=== PATIENT | male | born 1965 | race Caucasian/White ===

== ENCOUNTER → 2021-09-20 01:12 | Outpatient (CLI) | payer SELFPAY ==
[2021-09-21 14:30] LABS: SARS-CoV-2 RNA PCR Negative
== END ==
PROVIDERS: PCP Family Medicine Adolescent Medicine; Visit Provider Family Medicine Adolescent Medicine
DX: R50.9 Fever, unspecified (principal); R06.00 Dyspnea, unspecified; Z20.822 Contact with and (suspected) exposure to COVID-19
CPT/HCPCS: C9803; U0003; U0005

== ENCOUNTER 2022-02-14 14:49 | Inpatient (IN) | payer OTHER, SELFPAY ==
[2022-02-14] VITALS (26 sets, daily range): BP systolic 118–213; BP diastolic 68–197; PULSE 72–166; RESP 12–22; TEMP 36.3–37.1; O2SAT 93–100; BMI 24.2
--- NOTE | ~2022-02-14 | XR_ITS ---
EXAMINATION: XR chest 2V Exam Date/Time: 02/14/2022 15:15 CDT CLINICAL HISTORY: SOB, PALPITATIONS X10 DAYS. CURRENT AFIB, DENIES MED HX Comparison: 05/26/2009. RESULT: Lines, tubes, and devices: None. Lungs and pleura: Clear. Cardiomediastinal silhouette: Stable cardiomediastinal silhouette. Other: No acute osseous or upper abdominal finding. IMPRESSION: No acute cardiopulmonary process Reviewed, dictated and finalized at location K.
--- NOTE | 2022-02-14 14:53 | ECG_ITS ---
Measurements Intervals [place] Rate: 156 P: OR: 0 QRS: 81 QRSD: 102 T: -5 QT: 265 QTc: 428 Interpretive Statements ATRIAL FIBRILLATION WITH RAPID VENTRICULAR RESPONSE DELAYED PRECORDIAL R/S TRANSITION BORDERLINE ST-T WAVE ABNORMALITY- INF/LAT LEADS BASELINE ARTIFACT- I, II, III, AVR, AVL, AVF ABNORMAL ECG Electronically Signed On 02-14-2022 15:00:24 CDT by Jude Villatoro D.O.
[2022-02-14] MEDS: dilTIAZem HCl INJ 25 MG/5 ML VIAL 15 MG IV PUSH (15:09)
[2022-02-14] MEDS: ASPIRIN 81 MG CHEWABLE TABLET 324 MG PO (15:09)
[2022-02-14 15:20] LABS: Basophils Percent Auto 0.4 % (0.2-1.2); Eosinophils Percent Auto 0.1 % (0-4.4); Hematocrit 41.6 % (42.0-52.0); Hemoglobin 13.6 g/dL (14.0-18.0); Immature Granulocyte Absolute 0.05 K/mm3 (0.00-0.031); Immature Granulocyte Percent A 0.5 % (0-0.5); Lymphocytes Absolute Auto 1.35 K/mm3 (0.9-3.2); Lymphocytes Percent Auto 12.3 % (18.3-44.2); Mean Corpuscular HGB Conc 32.7 g/dl (32-36); Mean Corpuscular Hemoglobin 29.1 pg (26-34); Mean Corpuscular Volume 89.1 fl (80-100); Mean Platelet Volume 10.9 fl (7.4-10.4); Monocytes Absolute Auto 1.2 K/mm3 (0.1-0.6); Monocytes Percent Auto 10.5 % (2.6-8.5); Neutrophils Absolute Auto 8.4 K/mm3 (1.3-6.7); Neutrophils Percent Auto 76.2 % (45.5-73.1); Platelet Count Result 198 k/mm3 (150-375); Red Blood Count 4.67 M/mm3 (4.6-6.20); Red Cell Distribution Width 14.6 % (11.5-14.5)
[2022-02-14 15:26] LABS: Anion Gap 13 mmol/L (8-16); Blood Urea Nitrogen 15 mg/dL (9-20); Calcium 8.7 mg/dL (8.4-10.2); Carbon Dioxide 21 mmol/L (22-30); Chloride 102 mmol/L (98-107); Estimated CRCL calculation 88 ml/min; Estimated Glomerular Filt Rate > 60; Glucose 146 mg/dL (65-110); Potassium 3.8 mmol/L (3.4-5.0); Sodium 136 mmol/L (137-145)
[2022-02-14 15:28] LABS: INR 1.3; Prothrombin Time 15.3 Seconds (11.1-14.7)
[2022-02-14 15:29] LABS: Partial Thromboplastin Time 26.2 SECONDS (22.3-36.8)
[2022-02-14 15:38] LABS: NT Pro B Type Natriuretic Pept 3340 pg/mL (5-100); Troponin I 0.028 ng/mL (0.000-0.034)
--- NOTE | 2022-02-14 15:45 | ED.ARRPALP ---
HPI - Arrhythmia/Palpitations General Chief Complaint: Arrhythmia/Palpitations Stated Complaint: abnormal ekg Time Seen by Provider: 02/14/22 14:51 History of Present Illness HPI narrative: Patient is a 56-year-old male who presents ER with palpitations last 10 days. Associate with exertional dyspnea and chest tightness. No fevers or chills or sweats. No loss of consciousness. Went to see primary care today who referred him to the ER. Patient denies cough or sinus congestion. No abdominal discomfort/nausea/vomiting. Related Data Home Medications Medication Instructions Recorded Confirmed No Home Medications 02/14/22 02/14/22 Allergies Allergy/AdvReac Type Severity Reaction Status Date / Time Penicillins Allergy Mild TOLD WAS Verified 02/14/22 13:38 ALLERGIC WHEN A CHILD--???REACTION Review of Systems Review of Systems: All systems reviewed & are unremarkable except as noted in HPI and below Constitutional: Constitutional: Denies chills, Reports fatigue, Denies fever(s) and Reports weakness ENT: Denies nasal congestion and Denies sore throat Cardiovascular: Cardiovascular: Reports chest pain (Tightness), Reports rapid heart rate and Denies radiating jaw, neck or arm pain Respiratory: Respiratory: Denies chest congestion, Denies cough and Reports dyspnea Gastrointestinal: Gastrointestinal: Denies abdominal pain, Denies nausea and Denies vomiting Musculoskeletal: Musculoskeletal: Denies arthralgias and Denies muscle cramps Neurologic: Denies headache(s), Denies focal weakness and Denies numbness PMFSH Past Medical History Medical History (Updated 02/14/22 @ 16:04 by Tito Sumner MD) Hypertension Surgical History Surgical History (Updated 02/14/22 @ 16:02 by Tito Sumner MD) History of orthopedic surgery Family History Family History (Updated 02/14/22 @ 13:42 by Pérez Elder MA) Mother Heart disease Diabetes mellitus Social History Social History (Updated 02/14/22 @ 13:43 by Pérez Elder MA) Smoking status: Former smoker Second hand tobacco smoke exposure: No Smoking end date: 02/05/05 Alcohol intake: current Drinks per week: 12 Substance use: never Substance use type: does not use Gender identity (if verbalized by the patient): Male Sexual Orientation (if Verbalized by the Patient): Straight or Heterosexual Spiritual care concerns: No Agree to blood products: Yes Exam Narrative: GENERAL: Well-appearing, well-nourished, and in no acute distress. HEAD: Normocephalic, atraumatic. EYES: PERRL and EOMI. CHEST: Clear to auscultation. No respiratory distress. HEART: Irregular regular rate and rhythm that is tachycardic. Normal peripheral pulses. ABDOMEN: Soft, nontender, nondistended. EXTREMITIES: Normal range of motion. No edema. SKIN: Warm, dry, no rash. NEURO: Alert and oriented x3. PSYCH: Normal mood and affect. Course Course Emergency Course: Discussed with cardiology. Will admit primarily given patient is free of other health issues. Patient did have good response to diltiazem but will need to be started on a drip. Lasix ordered for diuresis. Will obtain echo. Vital Signs Vital signs: Vital Signs Temperature 97.3 F L 02/14/22 14:54 Pulse Rate 166 H 02/14/22 14:54 Respiratory Rate 14 02/14/22 14:54 Blood Pressure 152/119 H 02/14/22 14:54 Pulse Oximetry 100 02/14/22 14:54 Temperature 97.3 F L 02/14/22 14:54 Pulse Rate 166 H 02/14/22 14:54 Respiratory Rate 14 02/14/22 14:54 Blood Pressure 152/119 H 02/14/22 14:54 Pulse Oximetry 100 02/14/22 14:54 MDM - Arrhythmia/Palpitations Lab Data Result diagrams: 02/14/22 15:05 02/14/22 15:05 Labs: Lab Results 02/14/22 02/14/22 02/14/22 Range/Units 15:05 15:05 15:05 WBC 11.0 H (4.5-10.0) K/mm3 RBC 4.67 (4.6-6.20) M/mm3 Hgb 13.6 L (14.0-18.0) g/dL Hct 41.6 L (42.0-52.0) % MCV
[2022-02-14 16:26] LABS: SARS-CoV-2 RNA PCR Negative
[2022-02-14] MEDS: dilTIAZem 100 MG/100 ML 100 MG/100 ML BAG IV CONT (16:36)
[2022-02-14] MEDS: ENOXAPARIN 100 MG/ML SYRINGE 90 MG SUB-Q (16:37)
[2022-02-14 20:03] LABS: Troponin I 0.046 ng/mL (0.000-0.034)
[2022-02-14] MEDS: FUROSEMIDE INJ 40 MG/4 ML VIAL IV PUSH (20:56)
[2022-02-14 21:52] LABS: Troponin I 0.048 ng/mL (0.000-0.034)
[2022-02-14] MEDS: dilTIAZem 100 MG/100 ML 100 MG/100 ML BAG 15 MG IV CONT (22:26)
[2022-02-14] MEDS: ACETAMINOPHEN 325 MG TABLET 650 MG PO (23:46)
[2022-02-15] VITALS (24 sets, daily range): BP systolic 108–136; BP diastolic 62–107; PULSE 68–120; RESP 16–20; TEMP 36.4–36.9; O2SAT 98–100
[2022-02-15 05:30] LABS: Anion Gap 8 mmol/L (8-16); Blood Urea Nitrogen 15 mg/dL (9-20); Calcium 8.5 mg/dL (8.4-10.2); Carbon Dioxide 27 mmol/L (22-30); Chloride 100 mmol/L (98-107); Estimated CRCL calculation 89 ml/min; Estimated Glomerular Filt Rate > 60; Glucose 112 mg/dL (65-110); Potassium 3.5 mmol/L (3.4-5.0); Sodium 135 mmol/L (137-145)
--- NOTE | 2022-02-15 06:00 | ECHO_ITS ---
Patient Info Name: Rolando Vargas Age: 56 years : 1965 Gender: Male Ht: 75 in Wt: 196 lbs BSA: 2.17 m2 HR: 113 bpm BP: 112 / 69 mmHg Heart Rhythm: Atrial Fibrillation Technical Quality: Fair Exam Date: 02/15/2022 10:20 AM Exam Location: [facility] Patient Status: Inpatient Admit Date: 02/15/2022 Staff Ordering Physician: Tito Sumner MD Chicken Sexer: Emely West RDCS Attending Provider: Epi Hernandez MD Referring Physician: Burak CARTAGENA; Exam Type: CA echo dop color flow w con Study Info Indications - chf, afib, rvr Complete two-dimensional, color flow and Doppler transthoracic echocardiogram is performed with contrast to opacify the left ventricle and to improve the deliniation of the left ventricle endocardial borders. Contrast/Agitated Saline Contrast/Ag. Saline: Definity Amount: 2.00 ml Administered By: Emely West RDCS Existing IV Access: Yes IV Access Condition: patent with no signs of infiltration Summary 1. Left ventricular chamber dimension is mildly enlarged. 2. Left ventricular systolic function is moderately reduced, estimated at 30-35%. 3. There is no increased left ventricular wall thickness. 4. Left atrial chamber dimension is mildly enlarged. 5. There is no aortic valve stenosis. 6. There is mild mitral valve regurgitation. Left Ventricle Left ventricular chamber dimension is mildly enlarged. Left ventricular systolic function is moderately reduced, estimated at 30-35%. There is no increased left ventricular wall thickness. The left ventricular diastolic function is indeterminate. Right Ventricle Right ventricular chamber dimension is normal. Right ventricular systolic function is normal. Left Atria Left atrial chamber dimension is mildly enlarged. Right Atria Right atrial chamber dimension is normal. Aortic Valve The aortic valve is trileaflet. There is no aortic valve stenosis. There is no aortic valve regurgitation. Pulmonic Valve The pulmonic valve is normal. There is trace pulmonic regurgitation. Mitral Valve The mitral valve has normal leaflets. There is mild mitral valve regurgitation. Tricuspid Valve The tricuspid valve leaflets are normal. There is trace tricuspid valve regurgitation. No pulmonary hypertension, estimated pulmonary arterial systolic pressure is 14 mmHg. Pericardium/Pleural The pericardium appears normal. There is trivial pericardial effusion. Inferior Vena Cava Normal inferior vena cava with >50% collapse upon inspiration consistent with normal right atrial pressure, 5 mmHg. Aorta The aortic root size at the sinus of Valsalva is normal. Left Ventricular Outflow Tract Name Value Normal LVOT 2D LVOT Diameter 1.96 cm LVOT Doppler LVOT Peak Gradient 2 mmHg LVOT Mean Gradient 1 mmHg LVOT VTI 12.24 cm LVOT VTI/AV VTI Ratio 0.81 LVOT Stroke Volume 23.46 ml LVOT CO
[2022-02-15] MEDS: FUROSEMIDE INJ 40 MG/4 ML VIAL IV PUSH (08:10)
[2022-02-15] MEDS: dilTIAZem 100 MG/100 ML 100 MG/100 ML BAG IV CONT (08:10)
--- NOTE | 2022-02-15 09:35 | ECG_ITS ---
Measurements Intervals [place] Rate: 101 P: [place]: 0 QRS: 86 QRSD: 105 T: 5 QT: 348 QTc: 452 Interpretive Statements ATRIAL FIBRILLATION WITH RAPID VENTRICULAR RESPONSE DELAYED PRECORDIAL R/S TRANSITION NONSPECIFIC ST & T-WAVE ABNORMALITY- INF/LAT LEADS BASELINE ARTIFACT- I, II, III, AVR, AVL ,AVF ABNORMAL ECG Electronically Signed On 02-15-2022 12:39:55 CDT by Jude Villatoro D.O.
--- NOTE | 2022-02-15 09:40 | PM.IMHP ---
H&P: HPI History of Present Illness Date/Time: Date of service: 02/15/22 09:40 Chief Complaint: Shortness of breath with racing heart for 10 days Narrative: Patient is a very pleasant 56-year-old male with no significant past medical history aside from remote tobacco abuse quit 2004, history of remote heavy alcohol abuse, occasional marijuana use who presented to the emergency department with complaints of proximally 10 days persistent rapid heartbeat, fatigue, shortness of breath, decreased appetite. Patient was evaluated by his primary care physician who obtained an EKG based upon exam and his symptoms which revealed atrial fibrillation with rapid ventricular response and directed him to the emergency department for evaluation. Patient states while this most recent episode lasted approximately 10 days he admits that over the past year he has had intermittent episodes lasting short periods of time when he would inexplicably experience rapid heart rate palpitations fatigue but did not seek attention as these episodes would resolve without intervention. This is by far the longest episode in the most symptomatic he has been. He kept hoping this would go away but he found it difficult to work in the [employer] department at [employer]. He denies near-syncope or syncope, lower extremity edema, orthopnea or PND. He states he has trouble sleeping but denies known history of RANULFO. States in fact he has lost 10 lb over the past couple weeks due to poor appetite as he was not feeling well. He had no prior known history of diagnosis of hypertension, heart failure, CAD, myocardial infarction, stroke, bleeding complications or recent trauma falls or illness. He denies fevers or chills nausea vomiting diarrhea constipation. No melena or bright red blood per rectum. He is feeling a little better at this time but still fatigued and short of breath. His started on diltiazem infusion which improved his heart rate from the 160s within rather slow overnight to the 40-50s while asleep so his diltiazem was reduced. This morning, his heart rate remains in the 90s to 120s today in atrial fibrillation and he remains quite symptomatic. Unfortunately, he was not kept NPO and had already completed his breakfast this morning. COVID swab negative in the ER. Review of Systems Review of Systems: All systems reviewed & are unremarkable except as noted in HPI and below Constitutional: Constitutional: Reports as per HPI, Reports no additional constitutional complaints, Reports fatigue and Reports weakness Comments: Decreased appetite Eyes: Eyes: Reports as per HPI and Reports no additional eye complaints ENT: Reports system reviewed and no additional complaints, except as documented and Reports as per HPI Cardiovascular: Cardiovascular: Reports as per HPI, Reports no additional cardiovascular complaints, Denies chest pain, Denies leg edema and Reports palpitations Respiratory: Respiratory: Reports as per HPI, Reports no additional respiratory complaints, Denies hemoptysis, Reports dyspnea and Reports dyspnea on exertion Gastrointestinal: Gastrointestinal: Reports as per HPI, Reports no additional gastrointestinal complaints, Denies abdominal pain, Denies melena, Denies hematochezia, Denies nausea and Denies vomiting Genitourinary: Genitourinary: Reports no additional male genitourinary complaints and Reports as per HPI Musculoskeletal: Musculoskeletal: Reports no additional musculoskeletal complaints and Reports as per HPI Integumentary/Breasts: Skin/Breast: Reports system reviewed and no additional complaints, except as docu and Reports as per HPI Neurologic: Reports system reviewed and no additional complaints, except as documented and Reports as per HPI Psychiatric: Psychiatric: Reports no additional psychiatric complaints, Reports as per HPI, Reports anxiety and Denies confusion Endocrine: Endocrine: Reports no additional endocrine complaints and Reports as per HPI Hematol
[2022-02-15] MEDS: ENOXAPARIN 100 MG/ML SYRINGE 90 MG SUB-Q ×2 (09:58→20:48)
[2022-02-15] MEDS: PERFLUTREN LIPID MICROSPHERES 1.5 ML VIAL DILUTED TO 10 ML TOTAL VOLUME IV PUSH (10:50)
--- NOTE | 2022-02-15 10:51 | IVDEFINITY ---
Prior to administration of IV Definity the patient was educated on the risks and benefits of the imaging enhancing agent including potential adverse side effects. The patient verbalized understanding. Allergies were verified. No exclusion criteria were identified and at least one of the following inclusion criteria were met: 1) physician request, 2) patient technically difficult to image (per the [place] [employer] Echocardi[employer] guidelines of two or more segments not discernable within the apical view), or 3) questionable left ventricular function. ?
[2022-02-15] MEDS: SOTALOL HCL 80 MG TABLET PO ×2 (11:14→20:47)
--- NOTE | 2022-02-15 13:14 | ECG_ITS ---
Measurements Intervals [place] Rate: 89 P: [place]: 0 QRS: 84 QRSD: 98 T: 73 QT: 413 QTc: 503 Interpretive Statements ATRIAL FIBRILLATION BORDERLINE ST-T WAVE ABNORMALITY- HIGH LATERAL LEADS BASELINE ARTIFACT- I, II, AVR, AVL, AVF ABNORMAL ECG Electronically Signed On 02-15-2022 14:13:52 CDT by Jude Villatoro D.O.
--- NOTE | 2022-02-15 16:41 | ECG_ITS ---
Measurements Intervals [place] Rate: 76 P: 72 [place]: 164 QRS: 87 QRSD: 102 T: 83 QT: 435 QTc: 492 Interpretive Statements SINUS RHYTHM POSSIBLE LEFT ATRIAL ENLARGEMENT DELAYED PRECORDIAL R/S TRANSITION BORDERLINE T WAVE ABNORMALITY- HIGH LATERAL LEADS PROLONGED QT INTERVAL BASELINE ARTIFACT- II, III, AVR, AVL, AVF, V1-V3 ABNORMAL ECG Electronically Signed On 02-15-2022 19:40:11 CDT by Jude Villatoro D.O.
[2022-02-15] MEDS: ACETAMINOPHEN 325 MG TABLET 650 MG PO ×2 (18:13→23:44)
--- NOTE | 2022-02-15 23:00 | ECG_ITS ---
Measurements Intervals [place] Rate: 75 P: 68 [place]: 173 QRS: 87 QRSD: 104 T: 79 QT: 451 QTc: 504 Interpretive Statements SINUS RHYTHM POSSIBLE LEFT ATRIAL ENLARGEMENT DELAYED PRECORDIAL R/S TRANSITION PROLONGED QT INTERVAL BASELINE ARTIFACT- II, III, AVR, AVL, AVF Electronically Signed On 02-16-2022 6:37:01 CDT by Jude Villatoro D.O.
[2022-02-16] VITALS (20 sets, daily range): BP systolic 103–126; BP diastolic 56–82; PULSE 72–92; RESP 16–22; TEMP 35.7–36.7; O2SAT 93–100
[2022-02-16] MEDS: ENOXAPARIN 100 MG/ML SYRINGE 90 MG SUB-Q (08:44)
[2022-02-16] MEDS: SOTALOL HCL 80 MG TABLET PO (08:44)
--- NOTE | 2022-02-16 11:00 | ECG_ITS ---
Measurements Intervals [place] Rate: 76 P: 56 [place]: 171 QRS: 89 QRSD: 106 T: 86 QT: 454 QTc: 511 Interpretive Statements SINUS RHYTHM DELAYED PRECORDIAL R/S TRANSITION PROLONGED QT INTERVAL BASELINE ARTIFACT- I, II, III, AVR, AVL, AVF ABNORMAL ECG Electronically Signed On 02-16-2022 11:42:18 CDT by Jude Villatoro D.O.
--- NOTE | 2022-02-16 15:10 | PM.PNCARD ---
Progress Note: A&P Assessment and Plan (1) Atrial fibrillation with RVR: Code(s): I48.91 - Unspecified atrial fibrillation Status: Acute Assessment and Plan: New diagnosis Paroxysmal atrial fibrillation with rapid ventricular response highly symptomatic with fatigue, shortness of breath, palpitations generalized weakness. Patient remains symptomatic despite improved heart rate control. CHADS2 Vasc score 1-2 (new HTN, new cardiomyopathy). -converted to sinus rhythm after 2 doses of sotalol. QT prolonged by EKG greater than 500 milliseconds this morning. Discontinued but only after he received his this morning's dose. Will not resume sotalol as he has failed this loading challenge. However, he remains in sinus rhythm. We discussed recurrence risk of AFib alternative antiarrhythmic therapy risks with overlap given QT prolongation particularly given LV dysfunction. Discussed options including amiodarone to suppress and significantly reduced recurrence of AFib until LV systolic function is recovered. He may do well with beta-geanro therapy alone if this remains to be seen. Plan to add metoprolol tartrate 50 mg twice daily beginning this evening. Discussed addition of amiodarone as appropriate. Repeat 12 EKG this afternoon to evaluate QT interval. Continue telemetry. Given this risk he will remain hospitalized further observation. -discontinue enoxaparin, transition to Xarelto 20 mg at bedtime or Eliquis 5 mg twice daily. Plan to continue in the near future with discussions for deescalation to aspirin if LV function normalizes with maintenance of sinus rhythm. All questions answered to his satisfaction. Patient verbalized understanding and agreed with plan of care. Possible disposition tomorrow if maintaining sinus rhythm in QT interval has returned back to normal range. (2) QT prolongation: Code(s): R94.31 - Abnormal electrocardiogram [ECG] [EKG] Status: Acute Assessment and Plan: Unacceptable QT prolongation on sotalol therapy which has subsequently been discontinued. Will monitor EKG for resolution. Continue telemetry given risk for ventricular arrhythmias and to monitor for recurrence of AFib. Repeat BMP, magnesium in a.m.. (3) Tachycardia induced cardiomyopathy: Code(s): R00.0 - Tachycardia, unspecified; I43 - Cardiomyopathy in diseases classified elsewhere Status: Acute Assessment and Plan: Patient is not decompensated in heart failure. Echo personally reviewed and discussed at length EF 30-35% mild LV enlargement in AFib with RVR. Discussed probable underestimation to a degree of LV function yet remains abnormal. Discussed likelihood but no guarantee LV function will improve and or normalized with maintenance of sinus rhythm. Discussed ischemic evaluation as outpatient depending upon symptoms, clinical course response to therapy. Plan repeat 2D echocardiogram as an outpatient in 1-2 months. Explained while there may be other explanations it appears more likely LV dysfunction related to more persistent uncontrolled atrial fibrillation than may have previously been appreciated. Discussed importance of optimizing medical management. Will add losartan 25 mg daily as tolerated in addition to beta-genaro therapy for now. (4) Elevated troponin: Code(s): R77.8 - Other specified abnormalities of plasma proteins Status: Acute Assessment and Plan: Very likely type 2 infarction secondary to strain related to AFib with RVR sustained for approximately 10 days. No evidence for acute coronary syndrome and/or plaque rupture, clear ischemic changes on EKG, or symptoms highly suggestive angina. -2D echocardiogram with LV dysfunction EF 30-35%. (5) Elevated blood pressure reading without diagnosis of hypertension: Code(s): R03.0 - Elevated blood-pressure reading, without diagnosis of hypertension Status: Acute Assessment and Plan: Patient does not carry a pr
--- NOTE | 2022-02-16 16:00 | ECG_ITS ---
Measurements Intervals [place] Rate: 78 P: 65 [place]: 162 QRS: 77 QRSD: 109 T: 64 QT: 431 QTc: 492 Interpretive Statements SINUS RHYTHM PROLONGED QT INTERVAL BASELINE ARTIFACT- I, III, AVR, AVL, AVF, V1-V2 ABNORMAL ECG Electronically Signed On 02-16-2022 20:25:21 CDT by Jude Villatoro D.O.
[2022-02-16] MEDS: APIXABAN 5 MG TABLET PO (21:04)
[2022-02-16] MEDS: METOPROLOL TARTRATE 50 MG TAB PO (21:05)
[2022-02-17] VITALS (14 sets, daily range): BP systolic 101–122; BP diastolic 70–86; PULSE 67–90; RESP 16–22; TEMP 35.8–37.3; O2SAT 97–100
[2022-02-17] MEDS: ACETAMINOPHEN 325 MG TABLET 650 MG PO (00:13)
[2022-02-17 05:17] LABS: Anion Gap 5 mmol/L (8-16); Blood Urea Nitrogen 17 mg/dL (9-20); Calcium 8.3 mg/dL (8.4-10.2); Carbon Dioxide 28 mmol/L (22-30); Chloride 101 mmol/L (98-107); Estimated CRCL calculation 80 ml/min; Estimated Glomerular Filt Rate > 60; Glucose 100 mg/dL (65-110); Magnesium 2.4 mg/dL (1.6-2.3); Potassium 3.9 mmol/L (3.4-5.0); Sodium 134 mmol/L (137-145)
--- NOTE | 2022-02-17 08:00 | ECG_ITS ---
Measurements Intervals [place] Rate: 77 P: 149 [place]: 153 QRS: 141 QRSD: 108 T: 145 QT: 422 QTc: 478 Interpretive Statements SINUS RHYTHM VENTRICULAR PREMATURE COMPLEXES ARM LEADS REVERSED DELAYED PRECORDIAL R/S TRANSITION BASELINE ARTIFACT- I, II, III ,AVR, AVL, AVF ABNORMAL ECG Electronically Signed On 02-17-2022 11:05:48 CDT by Jude Villatoro D.O.
[2022-02-17] MEDS: APIXABAN 5 MG TABLET PO (09:05)
[2022-02-17] MEDS: METOPROLOL TARTRATE 50 MG TAB PO (09:05)
[2022-02-17] MEDS: LOSARTAN POTASSIUM 25 MG TABLET PO (09:06)
--- NOTE | 2022-02-17 09:29 | P.PNCA_ITS ---
Progress Note: A&P Assessment and Plan (1) Atrial fibrillation with RVR: Code(s): I48.91 - Unspecified atrial fibrillation Status: Acute Assessment and Plan: New diagnosis Paroxysmal atrial fibrillation with rapid ventricular response highly symptomatic with fatigue, shortness of breath, palpitations generalized weakness. Patient remains symptomatic despite improved heart rate control. CHADS2 Vasc score 1-2 (new HTN, new cardiomyopathy). -converted to sinus rhythm after 2 doses of sotalol. QT prolonged by EKG greater than 500 milliseconds this morning. Discontinued but only after he received his this morning's dose. Will not resume sotalol as he has failed this loading challenge. However, he remains in sinus rhythm. We discussed recurrence risk of AFib alternative antiarrhythmic therapy risks with overlap given QT prolongation particularly given LV dysfunction. Discussed options including amiodarone to suppress and significantly reduced recurrence of AFib until LV systolic function is recovered. He may do well with beta-genaro therapy alone if this remains to be seen. Plan to add metoprolol tartrate 50 mg twice daily beginning this evening. Discussed addition of amiodarone as appropriate. Repeat 12 EKG this afternoon to evaluate QT interval. Continue telemetry. Given this risk he will remain hospitalized further observation. -discontinue enoxaparin, transition to Xarelto 20 mg at bedtime or Eliquis 5 mg twice daily. Plan to continue in the near future with discussions for deescalation to aspirin if LV function normalizes with maintenance of sinus rhythm. All questions answered to his satisfaction. Patient verbalized understanding and agreed with plan of care. Possible disposition tomorrow if maintaining sinus rhythm in QT interval has returned back to normal range. (2) QT prolongation: Code(s): R94.31 - Abnormal electrocardiogram [ECG] [EKG] Status: Acute Assessment and Plan: Unacceptable QT prolongation on sotalol therapy which has subsequently been discontinued. Will monitor EKG for resolution. Continue telemetry given risk for ventricular arrhythmias and to monitor for recurrence of AFib. Repeat BMP, magnesium in a.m.. (3) Tachycardia induced cardiomyopathy: Code(s): R00.0 - Tachycardia, unspecified; I43 - Cardiomyopathy in diseases classified elsewhere Status: Acute Assessment and Plan: Patient is not decompensated in heart failure. Echo personally reviewed and discussed at length EF 30-35% mild LV enlargement in AFib with RVR. Discussed probable underestimation to a degree of LV function yet remains abnormal. Discussed likelihood but no guarantee LV function will improve and or normalized with maintenance of sinus rhythm. Discussed ischemic evaluation as outpatient depending upon symptoms, clinical course response to therapy. Plan repeat 2D echocardiogram as an outpatient in 1-2 months. Explained while there may be o ther explanations it appears more likely LV dysfunction related to more persistent uncontrolled atrial fibrillation than may have previously been appreciated. Discussed importance of optimizing medical management. Will add losartan 25 mg daily as tolerated in addition to beta-genaro therapy for now. (4) Elevated troponin: Code(s): R77.8 - Other specified abnormalities of plasma proteins Status: Acute Assessment and Plan: Very likely type 2 infarction secondary to strain related to AFib with RVR sustained for approximately 10 days. No evidence for acute coronary syndrome and/or plaque rupture, clear ischemic changes on EKG, or symptoms highly suggestive angina. -2D echocardiogram with LV dysfunction EF 3
--- NOTE | 2022-02-17 15:01 | PM.DS ---
DS: Admitting Diagnosis Discharge Date 02/17/2022 Admitting Diagnosis Afib DS: Discharge Diagnosis Discharge Diagnosis (1) Atrial fibrillation with RVR: Code(s): I48.91 - Unspecified atrial fibrillation Status: Acute Assessment and Plan: New diagnosis Paroxysmal atrial fibrillation with rapid ventricular response highly symptomatic with fatigue, shortness of breath, palpitations generalized weakness. Patient remains symptomatic despite improved heart rate control. CHADS2 Vasc score 1-2 (new HTN, new cardiomyopathy). -converted to sinus rhythm after 2 doses of sotalol, Had QT prolongation so sotalol was discontinued. Remains in sinus rhythm. Addition of amiodarone to suppress any recurrence of atrial fibrillation until LV function recovers. Start amiodarone 400 mg b.i.d. for 1 week then reduce to 400 mg daily thereafter. He will be seen in our office for follow-up in 2-3 weeks. He will have an EKG in outpatient 1 week. Eliquis 5 mg b.i.d. for anticoagulation. (2) QT prolongation: Code(s): R94.31 - Abnormal electrocardiogram [ECG] [EKG] Status: Acute Assessment and Plan: Unacceptable QT prolongation on sotalol therapy which has subsequently been discontinued. Repear EKGs with resolution of QT prolongation (3) Tachycardia induced cardiomyopathy: Code(s): R00.0 - Tachycardia, unspecified; I43 - Cardiomyopathy in diseases classified elsewhere Status: Acute Assessment and Plan: Patient is not decompensated in heart failure. Echo shows EF 30-35% mild LV enlargement in AFib with RVR. Medical therapy with losartan, metoprolol. (4) Elevated troponin: Code(s): R77.8 - Other specified abnormalities of plasma proteins Status: Acute Assessment and Plan: Very likely type 2 infarction secondary to strain related to AFib with RVR sustained for approximately 10 days. No evidence for acute coronary syndrome and/or plaque rupture, clear ischemic changes on EKG, or symptoms highly suggestive angina. -2D echocardiogram with LV dysfunction EF 30-35%. (5) Elevated blood pressure reading without diagnosis of hypertension: Code(s): R03.0 - Elevated blood-pressure reading, without diagnosis of hypertension Status: Acute Assessment and Plan: Patient does not carry a prior diagnosis of hypertension, however, given degree of elevation I suspect he has at least mild hypertension increasing stroke risk. We discussed this at length. He understands. BP improved. DS: Summary Hospital Course Hospital Course: Admitted for Afib RVR. Initially placed on sotalol with conversion to sinus rhythm after 2 doses of sotalol but did have QT prolongation. Therefore, sotalol was stopped. Maintaining sinus rhythm on metoprolol. Amiodarone started today for additional antiarrhythmic therapy until LV function improves. On Eliquis for anticoagulation. Feeling well today and stable for discharge home. Status at Discharge Functional status at discharge: independent ambulation Time Spent with Patient Time attestation: Total time spent providing and/or coordinating discharge services: 45 minutes Time spent: Greater than 30 minutes Exam Narrative: General: Very pleasant male sitting upright in bed, Well developed, alert and oriented x3. No apparent distress, comfortable, pleasant, and cooperative. Head: atraumatic, normocephalic Eyes: EOM intact, sclerae anicteric, conjunctivae unremarkable Ears/Nose: external inspection of ears and nose were grossly normal Mouth/Throat: oral mucosa pink and moist Neck: supple, normal range of motion, no jugular venous distention or carotid bruits, thyroid nonpalpable, trachea midline. Cardiac: Regular rate and rhythm, normal S1-S2, no murmurs Lungs: Clear to auscultation bilaterally, no rales, wheezes, or rhonchi. Abdomen: Soft, nontender, nondistended, positive bowel sounds throughout. No appreciable hepat
[2022-02-17] MEDS: AMIODARONE HCL 200 MG TABLET 400 MG PO (15:12)
== END 2022-02-17 16:20 | disposition home or self-care (01) | DRG 201 ==
LOC: ANHED 16:04 → ANHIMU 16:32
PROVIDERS: Internal Medicine Cardiovascular Disease; Admitting Provider Internal Medicine Cardiovascular Disease; Emergency Provider Emergency Medicine; PCP Family Medicine Adolescent Medicine; Visit Provider Nurse Practitioner
DX: I48.0 Paroxysmal atrial fibrillation (principal); I21.A1 Myocardial infarction type 2; R00.0 Tachycardia, unspecified; I43 Cardiomyopathy in diseases classified elsewhere; Z20.822 Contact with and (suspected) exposure to COVID-19; R94.31 Abnormal electrocardiogram [ECG] [EKG]; I11.0 Hypertensive heart disease with heart failure; I50.9 Heart failure, unspecified; Z87.891 Personal history of nicotine dependence
CPT/HCPCS: 36415; 71046; 80048; 83735; 83880; 84443; 84484; 85025; 85610; 85730; 93005; 94762; 96365; 96366; 96372; 96375; 96376; 99285; A9270; C8929; C9803; G0378; G0379; J1650; J1940; Q9957; U0003; U0005

== ENCOUNTER 2022-03-01 14:35 | Observation (INO) | payer OTHER, SELFPAY ==
[2022-03-01] VITALS (7 sets, daily range): BP systolic 147–167; BP diastolic 89–98; PULSE 70–81; RESP 16–23; TEMP 36.4; O2SAT 97–100; BMI 26.1
--- NOTE | ~2022-03-01 | CT_ITS ---
EXAMINATION: CTA chest PE protocol DATE: 03/01/2022 17:46 INDICATION: sob TECHNIQUE: Computed tomography angiography (CTA) of the chest was performed with 100 mL Omnipaque-350 intravenous contrast timed to evaluate the pulmonary arteries. Coronal maximum intensity projection 3D-reconstructions were created by the technologist. The dose-length product (DLP) was 504.19 mGy-cm. Automated exposure control and iterative reconstruction technique were employed. COMPARISON: None. FINDINGS: Study quality: Adequate. Pulmonary arteries: No pulmonary emboli detected. Thoracic aorta: Normal. Lung parenchyma and airways: Bibasilar dependent groundglass opacities and minimal apical and bibasil ar interlobular septal thickening. Thoracic inlet, axillae and chest wall: Unremarkable. Mediastinum: Borderline enlarged prevascular lymph nodes, otherwise normal. Heart and pericardium: Cardiomegaly. No pericardial effusion. Normal RV/LV ratio. Contrast reflux int o the IVC. Coronary artery calcifications: None. Pleura: Moderate volume bilateral pleural effusions, slightly larger on the right. Upper abdomen: No significant finding. Bones: No acute osseous finding. IMPRESSION: No CT evidence of acute pulmonary embolus. Mild pulmonary edema. CT findings that may reflect right h eart failure in the appropriate context. Reviewed, dictated and finalized at location K. IMPRESSION: No CT evidence of acute pulmonary embolus. Mild pulmonary edema. CT findings th at may reflect right heart failure in the appropriate context.
--- NOTE | ~2022-03-01 | XR_ITS ---
EXAMINATION: XR chest 2V DATE: 03/01/2022 15:06 INDICATION: Shortness of breath. TECHNIQUE: Frontal and lateral views of the chest were obtained. COMPARISON: Chest 2 views 02/14/2022 FINDINGS: There are small pleural effusions. There are airspace opacities at the lung bases. There ar e lucencies in the upper lungs, consistent with emphysema. No pneumothorax. The heart size is normal. IMPRESSION: 1. Small pleural effusions. 2. Airspace opacities at the lung bases, consistent with atelectasis versus pneumonia. 3. Emphysema. Reviewed, dictated and finalized at location A. IMPRESSION: 1. Small pleural effusions. 2. Airspace opacities at the lung bases, consistent with atelectasis versus pne umonia. 3. Emphysema.
--- NOTE | 2022-03-01 14:39 | ECG_ITS ---
Measurements Intervals [place] Rate: 79 P: 33 DE: 142 QRS: 80 QRSD: 105 T: 60 QT: 405 QTc: 466 Interpretive Statements SINUS RHYTHM VENTRICULAR PREMATURE COMPLEXES BASELINE WANDER- V3 BORDERLINE ECG Electronically Signed On 03-01-2022 14:59:55 CDT by Jude Villatoro D.O.
[2022-03-01 14:58] LABS: Basophils Percent Auto 0.2 % (0.2-1.2); Eosinophils Percent Auto 0.4 % (0-4.4); Hematocrit 38.4 % (42.0-52.0); Immature Granulocyte Absolute 0.03 K/mm3 (0.00-0.031); Immature Granulocyte Percent A 0.3 % (0-0.5); Lymphocytes Absolute Auto 1.29 K/mm3 (0.9-3.2); Lymphocytes Percent Auto 12.5 % (18.3-44.2); Mean Corpuscular HGB Conc 31.3 g/dl (32-36); Mean Corpuscular Hemoglobin 29.3 pg (26-34); Mean Corpuscular Volume 93.9 fl (80-100); Mean Platelet Volume 10.5 fl (7.4-10.4); Monocytes Absolute Auto 0.9 K/mm3 (0.1-0.6); Neutrophils Percent Auto 77.6 % (45.5-73.1); Platelet Count Result 281 k/mm3 (150-375); Red Blood Count 4.09 M/mm3 (4.6-6.20); Red Cell Distribution Width 15.2 % (11.5-14.5); White Blood Count 10.3 K/mm3 (4.5-10.0)
[2022-03-01 15:09] LABS: Alanine Aminotransferase 36 U/L (6-50); Albumin Level 3.9 g/dL (3.5-5.1); Alkaline Phosphatase 72 U/L (38-126); Anion Gap 7 mmol/L (8-16); Aspartate Amino Transferase 36 U/L (17-59); Bilirubin,Total 0.9 mg/dL (0.2-1.3); Blood Urea Nitrogen 16 mg/dL (9-20); Carbon Dioxide 23 mmol/L (22-30); Chloride 104 mmol/L (98-107); Estimated CRCL calculation 69 ml/min; Estimated Glomerular Filt Rate 57; Glucose 103 mg/dL (65-110); Potassium 4.4 mmol/L (3.4-5.0); Sodium 134 mmol/L (137-145)
[2022-03-01 15:10] LABS: INR 1.5; Partial Thromboplastin Time 28.4 SECONDS (22.3-36.8)
[2022-03-01 15:20] LABS: Troponin I 0.017 ng/mL (0.000-0.034)
[2022-03-01 15:23] LABS: NT Pro B Type Natriuretic Pept 5950 pg/mL (5-100)
--- NOTE | 2022-03-01 18:17 | ED.SOB ---
HPI - SOB/Dyspnea General Chief Complaint: Shortness of Breath/Dyspnea Stated Complaint: I can't breathe since Sunday night Time Seen by Provider: 03/01/22 15:13 Source: patient Mode of arrival: ambulatory Limitations: no limitations History of Present Illness HPI Narrative: 56-year-old with a history of cardiomyopathy, recent diagnosis of A. fib, anxiety disorder here with complaints of shortness of breath for past few days. Patient states that even with minimal ambulation and laying down flat his shortness of breath gets worse. He denies any chest pain. He states that he was unable to perform his work on Sunday because of his shortness of breath. No history of fever or chills or cough. MD elicited complaint: shortness of breath Onset (ago): day(s) (4) Timing: intermittent Exacerbating factors: lying flat and exertion Relieving factors: upright position Associated symptoms: denies other symptoms Related Data Allergies Allergy/AdvReac Type Severity Reaction Status Date / Time Penicillins Allergy Mild TOLD WAS Verified 02/14/22 13:38 ALLERGIC WHEN A CHILD--???REACTION Review of Systems Review of Systems: All systems reviewed & are unremarkable except as noted in HPI and below Constitutional: Constitutional: Reports no additional constitutional complaints Eyes: Eyes: Reports no additional eye complaints Cardiovascular: Cardiovascular: Reports as per HPI Respiratory: Respiratory: Reports as per HPI Gastrointestinal: Gastrointestinal: Reports no additional gastrointestinal complaints Musculoskeletal: Musculoskeletal: Reports no additional musculoskeletal complaints Integumentary/Breasts: Skin/Breast: Reports system reviewed and no additional complaints, except as docu Neurologic: Reports system reviewed and no additional complaints, except as documented Psychiatric: Psychiatric: Reports no additional psychiatric complaints Endocrine: Endocrine: Reports no additional endocrine complaints Hematologic/Lymphatic: Hematologic/Lymphatic: Reports no additional hematologic/lymphatic complaints [facility] Past Medical History Medical History Atrial fibrillation with RVR Hypertension Surgical History Surgical History History of orthopedic surgery Family History Family History Mother Diabetes mellitus Heart disease afib - had cardioversion in august Social History Social History Years smoked: 20 Smoking status: Former smoker Second hand tobacco smoke exposure: Yes Smoking end date: 02/05/05 Additional smoking assessment comments: still smokes marijuana a few times a week Alcohol intake: current Drinks per week: 12 Substance use: current Substance use type: marijuana Other substance usage details: smokes a few times a week Last use: 02/12/22 Gender identity (if verbalized by the patient): Male Sexual Orientation (if Verbalized by the Patient): Straight or Heterosexual Spiritual care concerns: No Agree to blood products: Yes Exam Narrative: GENERAL: Well-appearing, well-nourished, anxious, and in no acute distress. HEAD: Normocephalic, atraumatic. EYES: PERRLA and EOMI. NECK: Supple. CHEST: Clear to auscultation. No respiratory distress. HEART: Regular rate and rhythm. No murmur heard. Normal peripheral pulses. ABDOMEN: Soft, nontender, nondistended, normal active bowel sounds. EXTREMITIES: Normal range of motion. No edema. SKIN: Warm, dry, no rash. NEURO: No focal deficits. Alert and oriented x3. PSYCH: Normal mood and affect. Course Course Emergency Course: Patient comfortable laying on bed with SPO2 of 99 200% on room air. Informed him about his lab work, chest x-ray. I discussed with Dr. Rogers recommended CT of the chest and
--- NOTE | 2022-03-01 19:00 | PM.IMHP ---
H&P: HPI History of Present Illness Date/Time: 03/01/22 19:00 <Tracey Membreno PA-C - Last Filed: 03/01/22 22:57> Chief Complaint: Shortness of breath. <Tracey Membreno PA-C - Last Filed: 03/01/22 22:57> Narrative: This is a pleasant 56-year-old male with hypertension and paroxysmal atrial fibrillation who presented to the emergency department for evaluation of shortness of breath. He was recently admitted to the hospital with new onset atrial fibrillation with rapid ventricular response after presenting with fatigue, shortness of breath, and palpitations. Echocardiogram showed mild LV enlargement and an EF of 30 to 35% and he was started on losartan and metoprolol. He converted to sinus rhythm after receiving 2 doses of sotalol however that was discontinued due to QT prolongation. He was transitioned amiodarone and was started on Eliquis 5 mg b.i.d. for anticoagulation. Apnea link showed suspected pathological breathing disorder. He has been doing okay up until Sunday when he developed shortness of breath with exertion, mild lower extremity edema, and increasing fatigue. At work yesterday he also had intermittent palpitations with lightheadedness, nausea, and shortness of breath. He slept poorly last night due to his shortness of breath and he returned today for evaluation. He was in a sinus rhythm on arrival today with occasional ectopy. CTA of the chest was negative for acute pulmonary embolus but did show mild pulmonary edema and bilateral pleural effusions. He is being admitted setting for diuresis. Currently has no complaints any denies fever, chills, sweats, syncope, near syncope, exertional chest pain, pleuritic pain, palpitations, nausea, vomiting, and sweats. <Tracey Membreno PA-C - Last Filed: 03/01/22 22:57> Review of Systems Review of Systems: Twelve systems were reviewed and are negative except for as per HPI. <Tracey Membreno PA-C - Last Filed: 03/01/22 22:57> [facility] Past Medical History Medical History: Medical History Heart failure with reduced ejection fraction Hypertension Paroxysmal atrial fibrillation Suspected sleep apnea Apnea link in February 2022 is suspicious for pathological breathing disorder With an AHI of 20. <Tracey Membreno PA-C - Last Filed: 03/01/22 22:57> Surgical History Surgical History: Surgical History History of hemorrhoidectomy Status post LASIK surgery of both eyes <Tracey Membreno PA-C - Last Filed: 03/01/22 22:57> Family History Family History: Family History Mother Diabetes mellitus Heart disease afib - had cardioversion in august <Tracey Membreno PA-C - Last Filed: 03/01/22 22:57> Social History Social History: Social History Social History: Surrogate decision maker: Donnell Vargas (mother) or Blancahaley Simosn (friend). Code status: Full code. Smoking packs per day: 1 Smoking cigarettes per day: 20.0 Years smoked: 20 Smoking pack-years: 20.00 Smoking status: Former smoker Tobacco type: cigarettes Second hand tobacco smoke exposure: Yes Smoking end date: 02/05/05 Alcohol intake: current Drinks per week: 14 Substance use: current Substance use type: marijuana Other substance usage details: Few times a week. Last use: 02/12/22 Spiritual care concerns: No Agree to blood products: Yes <Tracey Membreno PA-C - Last Filed: 03/01/22 22:57> Meds Home Medications and Allergies Home medications: Home Medications Medication Instructions Recorded Confirmed Type amiodarone 400 mg tablet 400 mg PO DAILY #30 tabs 02/17/22 03/01/22 Rx metoprolol tartrate 50 mg tablet 50 mg PO Q12HR #30 tabs 02/17/22 03/01/22 Rx apixaban 5 mg tablet (Eliquis) 5 mg PO DAILY
[2022-03-01] MEDS: FUROSEMIDE INJ 40 MG/4 ML VIAL IV PUSH (19:09)
--- NOTE | 2022-03-01 19:35 | PC.NURSE ---
Tried to call report on patient nurse is busy in another room states he will call back.
--- NOTE | 2022-03-01 20:11 | ADMGEN ---
This patient, Rolando Vargas, was admitted to Medical Room 252-01. Patient/family oriented to hospital policies and general routines including ID bracelet, bed and alarms, visiting hours, pain management, procedures, bathroom and other care routines, personal items, smoking policy, room service/diet, and visiting hours. Information on how to activate the Rapid Response Team has been discussed. Patient/Family are encouraged to report perceived risks to care and to ask questions if they do not understand what they are told or what they should do.
[2022-03-01] MEDS: ACETAMINOPHEN 325 MG TABLET 650 MG PO (21:51)
[2022-03-02] VITALS (9 sets, daily range): BP systolic 132–143; BP diastolic 70–82; PULSE 57–70; RESP 18; TEMP 36.6; O2SAT 92–96
[2022-03-02] MEDS: METOPROLOL TARTRATE 50 MG TAB PO ×2 (00:10→08:16)
[2022-03-02 00:49] LABS: Troponin I 0.026 ng/mL (0.000-0.034)
[2022-03-02 05:41] LABS: Anion Gap 5 mmol/L (8-16); Blood Urea Nitrogen 17 mg/dL (9-20); Carbon Dioxide 24 mmol/L (22-30); Chloride 105 mmol/L (98-107); Estimated CRCL calculation 69 ml/min; Estimated Glomerular Filt Rate 57; Glucose 85 mg/dL (65-110); Magnesium 2.2 mg/dL (1.6-2.3); Potassium 3.9 mmol/L (3.4-5.0); Sodium 134 mmol/L (137-145)
[2022-03-02] MEDS: ASPIRIN 81 MG CHEWABLE TABLET PO (08:15)
[2022-03-02] MEDS: LOSARTAN POTASSIUM 25 MG TABLET PO (08:15)
[2022-03-02] MEDS: AMIODARONE HCL 200 MG TABLET 400 MG PO (08:15)
[2022-03-02] MEDS: FUROSEMIDE INJ 40 MG/4 ML VIAL 20 MG IV PUSH (08:15)
[2022-03-02] MEDS: APIXABAN 5 MG TABLET PO (08:16)
--- NOTE | 2022-03-02 08:45 | PM.DS ---
DS: Admitting Diagnosis Discharge Date 03/02/22 0845 Admitting Diagnosis CHF Exacerbation DS: Discharge Diagnosis Discharge Diagnosis (1) CHF exacerbation: Code(s): I50.9 - Heart failure, unspecified Status: Acute Assessment and Plan: BNP is 5950 IV lasix given Previous echo indicates acute on chronic combined systolic and diastolic exacerbation Chest x-ray shows small pleural effusions, airspace opacities, emphysema Chest CT shows no PE, mild pulmonary edema which looks to be more heart failure related Trend urine output Daily weights Continue oral furosemide 20 mg daily Continues metoprolol tartrate 50 mg p.o. b.i.d. increased losartan to 50 mg p.o. daily Continue amiodarone at current dose (2) Heart failure with reduced ejection fraction: Code(s): I50.20 - Unspecified systolic (congestive) heart failure Status: Acute Assessment and Plan: See above (3) Hypertension: Code(s): I10 - Essential (primary) hypertension Status: Chronic Assessment and Plan: Current BP 143/82 Continue Home home amiodarone 400 p.o. daily, losartan increased to 50 mg p.o. daily, metoprolol 50 mg p.o. q.12 Trend Blood pressure Adjust therapy as indicated (4) Paroxysmal atrial fibrillation: Code(s): I48.0 - Paroxysmal atrial fibrillation Status: Acute Assessment and Plan: Currently in a sinus rhythm with occasional ectopy. Continue amiodarone and apixaban for stroke prophylaxis (5) Suspected sleep apnea: Code(s): R29.818 - Other symptoms and signs involving the nervous system Status: Acute Assessment and Plan: Apnea link earlier this month with an AHI of 20. He will need a formal outpatient polysomnogram DS: Summary Hospital Course Hospital Course: Patient is a 56-year-old male with a past medical history of hypertension and AFib who presented the emergency room for evaluation of shortness of breath. Patient had recently been admitted to the hospital for new onset AFib which had been controlled with amiodarone and patient has converted to sinus rhythm. Echocardiogram did show an EF of 30-35% upon that visit. Patient was also started on Eliquis and discharged home. Patient returns to the hospital due to fluid overload BNP was 59 50. Patient was diuresed with IV furosemide which has been changed to p.o. at this time. Patient denies any chest pain, nausea, vomiting, diarrhea, constipation, weakness or fatigue. Patient does have ck supple improvement in shortness of breath. Patient is stable for discharge at this time and is ready to go home. Cardiology was consulted also agrees with discharge at this time. Patient will be started on 20 mg of p.o. Lasix. Patient will need to follow up with Cardiology which he seems to have an appointment in March. Education was given about daily weights and trending urine output. Patient is follow-up strict low-sodium diet. Labs are stable at this time. Status at Discharge Functional status at discharge: independent ambulation Overall status at discharge: patient is progressing back to baseline Time Spent with Patient Time attestation: Total time spent providing and/or coordinating discharge services: 43 minutes Specific discharge activities: Diagnostic testing, chart review, developing a treatment plan, education, care coordination documentation, physical exam, result review DS: Data Data Completed and Pending Labs on day of discharge: Labs from last 24 hours 03/02/22 03/02/22 03/01/22 05:15 00:19 14:46 WBC RBC Hgb Hct MCV MCH MCHC RDW Plt Count MPV Immature Gran % (Auto) Neut % (Auto) Lymph % (Auto) [place] % (Auto) Eos % (Auto) Baso % (Auto) Lymph # (Auto) [place] # (Auto) Eos # (Auto) Baso # (Auto) Abs Immat Gran (auto) Absolute Neuts (auto) Absolute Nucleated RBC
--- NOTE | 2022-03-02 08:57 | PM.CNCAR ---
Assessment and Plan Assessment and plan (1) CHF exacerbation: Code(s): I50.9 - Heart failure, unspecified Status: Acute Assessment and Plan: He is diuresing feeling much better already. Will DC IV furosemide and start him on oral furosemide 20 mg daily. I am also going to continues metoprolol tartrate 50 mg p.o. b.i.d. but increase his losartan to 50 mg p.o. daily. Continue amiodarone at current dose. Okay for discharge from my perspective. He already has follow-up in March (2) Heart failure with reduced ejection fraction: Code(s): I50.20 - Unspecified systolic (congestive) heart failure Status: Acute Assessment and Plan: Recent ejection fraction was 30 to 35%, possibly tachycardia induced due to AFib/RVR. Currently in a sinus rhythm. Continue losartan and metoprolol. (3) Hypertension: Code(s): I10 - Essential (primary) hypertension Status: Chronic Assessment and Plan: Will increase losartan to 50 mg daily. Continue metoprolol (4) Paroxysmal atrial fibrillation: Code(s): I48.0 - Paroxysmal atrial fibrillation Status: Acute Assessment and Plan: Currently in a sinus rhythm with occasional ectopy. Continue amiodarone. He is on in proper dosing of Eliquis. Will change his dosing to 5 mg p.o. b.i.d.. (5) Suspected sleep apnea: Code(s): R29.818 - Other symptoms and signs involving the nervous system Status: Acute Assessment and Plan: Needs outpatient sleep study History of Present Illness History of Present Illness Consult date/time: 03/02/22 08:57 Requesting physician: Dr. Kirby Reason For Visit: chf Narrative: History: Patient is a 56-year-old male who was recently admitted to the hospital because of palpitations. He has a history of heavy alcohol use, occasional marijuana use who had came to hospital because of 10 days of persistent rapid heartbeat and shortness of breath. He was found to be in atrial fibrillation with rapid ventricular response. He was initially started on diltiazem drip. He did eventually convert to sinus rhythm. He was put on Eliquis but on in proper dosing regimen. He was started on twice daily dose but now is only taking it once a day. He had an echocardiogram showing ejection fraction 30-35% started on losartan and metoprolol. He was on sotalol briefly but was discontinued due to QT prolongation. He was discharged to home and had been doing okay. He returned to work but after 6 days and rolled working he started developed some shortness of breath. About 3-4 days ago his shortness of breath became quite significant to the point that yesterday he needed to come to the hospital for further workup evaluation. He was short of breath basically doing any activity and even sometimes at rest. He describes paroxysmal nocturnal dyspnea as well as orthopnea. No chest pain, syncope. He did feel weak and fatigued and did have some mild swelling in his legs also. His BNP was nearly 6000. He was admitted and diuresed and is currently feeling better. He is trying did do better about salt but still is consuming some sodium as well as still drinking a couple beers per day. Review of Systems Review of Systems: All systems reviewed & are unremarkable except as noted in HPI and below Constitutional: Constitutional: Denies body ache(s) and Reports weakness Eyes: Eyes: Denies blurry vision ENT: Reports Normal hearing present Cardiovascular: Cardiovascular: Denies chest pain and Reports pedal edema Respiratory: Respiratory: Reports dyspnea and Reports dyspnea on exertion Gastrointestinal: Gastrointestinal: Denies abdominal pain Genitourinary: Genitourinary: Denies hematuria Musculoskeletal: Musculoskeletal: Denies back pain Integumentary/Breasts: Skin/Breast: Denies breast pain Neurologic: Denies confusion Psychiatric: Psychiatric: Denies anxiety Endocrine: Endocrine: Denies excessi
== END 2022-03-02 13:35 | disposition home or self-care (01) ==
LOC: ANHED 18:25 → ANH2MED 20:38
PROVIDERS: Emergency Medicine; Admitting Provider Family Medicine; Emergency Provider Family Medicine; PCP Family Medicine Adolescent Medicine; Visit Provider Nurse Practitioner
DX: I50.21 Acute systolic (congestive) heart failure (principal); I11.0 Hypertensive heart disease with heart failure; F41.9 Anxiety disorder, unspecified; I48.0 Paroxysmal atrial fibrillation; Z87.891 Personal history of nicotine dependence; F12.90 Cannabis use, unspecified, uncomplicated; R29.818 Other symptoms and signs involving the nervous system
CPT/HCPCS: 36415; 71046; 71275; 80048; 80053; 83735; 83880; 84484; 85025; 85610; 85730; 93005; 96374; 96376; 99285; A9270; G0378; G0379; J1940; Q9967

== ENCOUNTER 2022-06-06 16:09 | Emergency (ER) | payer OTHER, SELFPAY ==
[2022-06-06] VITALS (15 sets, daily range): BP systolic 98–140; BP diastolic 68–97; PULSE 63–80; RESP 11–19; TEMP 36.7; O2SAT 98–100
--- NOTE | ~2022-06-06 | XR_ITS ---
XR chest 2V DATE: 06/06/2022 16:50 INDICATION: Shortness of breath TECHNIQUE: PA and lateral views COMPARISON: 03/01/2022 CTA chest 03/01/2022 PA and lateral chest FINDINGS: Mild bilateral hyperinflation. No pulmonary infiltrate or consolidation, pleural effusion o r pulmonary vascular congestion or pneumothorax is detected. Normal heart size. No hilar or mediastin al enlargement. Included skeletal structures are unremarkable. Pancreas excavatum. IMPRESSION: Mild hyperinflation; no active cardiopulmonary disease Reviewed, dictated and finalized at location B.
--- NOTE | 2022-06-06 16:26 | ECG_ITS ---
Measurements Intervals [place] Rate: 73 P: 83 [place]: 150 QRS: 83 QRSD: 114 T: 75 QT: 465 QTc: 514 Interpretive Statements SINUS RHYTHM MODERATE INTRAVENTRICULAR CONDUCTION DELAY [110+ ms QRS DURATION] PROLONGED QT INTERVAL COMPARED TO ECG 03/01/2022 14:43:10 INTRAVENTRICULAR CONDUCTION DELAY NOW PRESENT PROLONGED QT INTERVAL NOW PRESENT Electronically Signed On 06-07-2022 19:53:21 CDT by Barbara Davis M.D.
[2022-06-06 16:58] LABS: Basophils Percent Auto 0.1 % (0.2-1.2); Eosinophils Percent Auto 0.1 % (0-4.4); Hematocrit 37.1 % (42.0-52.0); Hemoglobin 11.7 g/dL (14.0-18.0); Immature Granulocyte Absolute 0.04 K/mm3 (0.00-0.031); Immature Granulocyte Percent A 0.5 % (0-0.5); Lymphocytes Absolute Auto 0.91 K/mm3 (0.9-3.2); Lymphocytes Percent Auto 11.4 % (18.3-44.2); Mean Corpuscular HGB Conc 31.5 g/dl (32-36); Mean Corpuscular Volume 85.7 fl (80-100); Mean Platelet Volume 10.5 fl (7.4-10.4); Monocytes Absolute Auto 1.1 K/mm3 (0.1-0.6); Monocytes Percent Auto 13.3 % (2.6-8.5); Neutrophils Absolute Auto 5.9 K/mm3 (1.3-6.7); Neutrophils Percent Auto 74.6 % (45.5-73.1); Nucleated Red Blood Cells Perc 0.4 % (0.0-0.2); Platelet Count Result 259 k/mm3 (150-375); Red Blood Count 4.33 M/mm3 (4.6-6.20); Red Cell Distribution Width 16.3 % (11.5-14.5)
[2022-06-06 17:11] LABS: Alanine Aminotransferase 342 U/L (6-50); Albumin Level 4.2 g/dL (3.5-5.1); Alkaline Phosphatase 120 U/L (38-126); Anion Gap 16 mmol/L (8-16); Aspartate Amino Transferase 212 U/L (17-59); Bilirubin,Total 3.4 mg/dL (0.2-1.3); Blood Urea Nitrogen 20 mg/dL (9-20); Calcium 8.5 mg/dL (8.4-10.2); Carbon Dioxide 23 mmol/L (22-30); Chloride 92 mmol/L (98-107); Estimated CRCL calculation 53 ml/min; Estimated Glomerular Filt Rate 42; Glucose 140 mg/dL (65-110); Potassium 3.8 mmol/L (3.4-5.0); Sodium 131 mmol/L (137-145)
--- NOTE | 2022-06-06 18:06 | ED.SOB ---
HPI - SOB/Dyspnea General Chief Complaint: Shortness of Breath/Dyspnea Stated Complaint: sob Time Seen by Provider: 06/06/22 17:36 History of Present Illness HPI Narrative: Pt presents with shortness of breath for the last several days. Pt has history of CHF and concerned it may be that. Pt denies swelling in legs or CP. Pt says he feels lightheaded and dizzy. Pt also has been vomiting and has trouble keeping down food but denies abdominal pain or diarrhea. Related Data Allergies Allergy/AdvReac Type Severity Reaction Status Date / Time Penicillins Allergy Mild TOLD WAS Verified 06/06/22 17:39 ALLERGIC WHEN A CHILD--???REACTION Review of Systems Review of Systems: All systems reviewed & are unremarkable except as noted in HPI and below PMFSH Past Medical History Medical History Heart failure with reduced ejection fraction Hypertension Paroxysmal atrial fibrillation Suspected sleep apnea Apnea link in February 2022 is suspicious for pathological breathing disorder With an AHI of 20. Surgical History Surgical History History of hemorrhoidectomy Status post LASIK surgery of both eyes Family History Family History Mother Diabetes mellitus Heart disease afib - had cardioversion in august Social History Social History Social History: Surrogate decision maker: Donnell Vargas (mother) or Blanca Simons (friend). Code status: Full code. Smoking packs per day: 1 Smoking cigarettes per day: 20.0 Years smoked: 20 Smoking pack-years: 20.00 Smoking status: Former smoker Tobacco type: cigarettes Second hand tobacco smoke exposure: Yes Smoking end date: 02/05/05 Alcohol intake: current Drinks per week: 14 Substance use: current Substance use type: marijuana Other substance usage details: Few times a week. Last use: 02/12/22 Spiritual care concerns: No Agree to blood products: Yes Exam Const: General: healthy appearing Nutritional Appearance: well nourished Orientation/consciousness: patient oriented x3 Limitations: no limitations HENMT: Mouth: Yes Normal oral and palatal mucosa present Eyes: Conjunctivae: conjunctivae normal EOM: EOMs intact bilaterally Resp: Effort & Inspection: normal respiratory effort Auscultation: clear to auscultation bilaterally Cardio: Rate: regular rate Rhythm: regular rhythm GI: GI Palp: Yes Soft to palpation Auscultation: normal bowel sounds Back/Spine/Pelvis: Back: no CVA tenderness Skin: General skin exam: normal color Rashes: no rashes Neuro: General: patient oriented x3, moves all extremities, no meningeal signs and no focal motor deficits Speech: normal speech Extrem: General: normal to inspection and no clubbing, cyanosis or edema Psych: Mental Status: mental status grossly normal Affect: normal affect Attitude: cooperative Course Vital Signs Vital signs: Vital Signs Temperature 98.0 F 06/06/22 16:18 Pulse Rate 80 06/06/22 16:18 Respiratory Rate 18 06/06/22 16:18 Blood Pressure 98/68 L 06/06/22 16:18 Pulse Oximetry 100 06/06/22 16:18 Oxygen Delivery Room Air 06/06/22 16:18 Temperature 98.0 F 06/06/22 16:18 Pulse Rate 68 06/06/22 20:49 Respiratory Rate 14 06/06/22 20:49 Blood Pressure 132/83 06/06/22 20:16 Pulse Oximetry 100 06/06/22 20:49 Oxygen Delivery Room Air 06/06/22 16:18 MDM - SOB/Dyspnea Lab Data Result diagrams: 06/06/22 16:41 06/06/22 16:41 Labs: Lab Results 06/06/22 06/06/22 06/06/22 Range/Units 16:41 16:41 16:41 WBC 8.0 (4.5-10.0) K/mm3 RBC 4.33 L (4.6-6.20) M/mm3 Hgb 11.7 L (14.0-18.0) g/dL Hct 37.1 L (42.0-52.0) % MCV 85.7 (80-100) fl MCH 27.0 (26-34
[2022-06-06] MEDS: ONDANSETRON INJ 4 MG/2 ML VIAL IV PUSH (18:12)
[2022-06-06 18:39] LABS: NT Pro B Type Natriuretic Pept 1640 pg/mL (5-100); Troponin I < 0.012 ng/mL (0.000-0.034)
[2022-06-06] MEDS: FUROSEMIDE INJ 40 MG/4 ML VIAL 20 MG IV PUSH (19:15)
== END 2022-06-06 21:20 | disposition home or self-care (01) ==
LOC: ANHED 19:14
PROVIDERS: Emergency Provider Emergency Medicine; PCP Family Medicine Adolescent Medicine
DX: I11.0 Hypertensive heart disease with heart failure (principal); I50.9 Heart failure, unspecified; I48.91 Unspecified atrial fibrillation; Z87.891 Personal history of nicotine dependence
CPT/HCPCS: 36415; 71046; 80053; 83880; 84484; 85025; 93005; 96374; 96375; 99284; J1940; J2405

== ENCOUNTER 2022-12-26 13:03 | Outpatient (CLI) | payer OTHER, SELFPAY ==
[2022-12-26 14:03] LABS: Basophils Percent Auto 0.4 % (0.2-1.2); Eosinophils Absolute Auto 0.1 K/mm3 (0-0.3); Eosinophils Percent Auto 0.6 % (0-4.4); Immature Granulocyte Absolute 0.04 K/mm3 (0.00-0.031); Immature Granulocyte Percent A 0.5 % (0-0.5); Lymphocytes Absolute Auto 1.15 K/mm3 (0.9-3.2); Lymphocytes Percent Auto 14.6 % (18.3-44.2); Mean Corpuscular HGB Conc 24.2 g/dl (32-36); Mean Corpuscular Hemoglobin 16.7 pg (26-34); Mean Corpuscular Volume 69.1 fl (80-100); Mean Platelet Volume 10.1 fl (7.4-10.4); Monocytes Absolute Auto 1.1 K/mm3 (0.1-0.6); Monocytes Percent Auto 13.6 % (2.6-8.5); Neutrophils Absolute Auto 5.6 K/mm3 (1.3-6.7); Neutrophils Percent Auto 70.3 % (45.5-73.1); Nucleated Red Blood Cells Absolute Auto 0.2 K/mm3 (0.0-0.012); Nucleated Red Blood Cells Perc 1.9 % (0.0-0.2); Platelet Count Result 307 k/mm3 (150-375); Red Blood Count 2.75 M/mm3 (4.6-6.20); Red Cell Distribution Width 22.8 % (11.5-14.5); White Blood Count 7.9 K/mm3 (4.5-10.0)
[2022-12-26 14:19] LABS: Hemoglobin 4.6 g/dL (14.0-18.0)
[2022-12-26 14:24] LABS: Anisocytosis 2+ (NORMAL); Hypochromasia 2+ (NORMAL); Ovalocytes 2+ (NORMAL); Platelet Estimate Adequate (Adequate); Poikilocytosis 1+ (NORMAL); Schistocytes None Seen (NORMAL)
== END 2022-12-26 13:04 | disposition home or self-care (01) ==
LOC: ANHLAB 13:05
PROVIDERS: PCP Family Medicine Adolescent Medicine; Visit Provider Nurse Practitioner Adult Health
DX: Z51.81 Encounter for therapeutic drug level monitoring (principal); Z79.01 Long term (current) use of anticoagulants; R06.09 Other forms of dyspnea; I95.9 Hypotension, unspecified
CPT/HCPCS: 36415; 85025

== ENCOUNTER 2022-12-26 15:03 | Inpatient (IN) | payer OTHER, SELFPAY ==
[2022-12-26] VITALS (12 sets, daily range): BP systolic 90–137; BP diastolic 38–64; PULSE 59–104; RESP 15–19; TEMP 35.8–36.9; O2SAT 96–100; BMI 26.2
--- NOTE | ~2022-12-26 | XR_ITS ---
SMALL BOWEL SERIES ONLY INDICATION: Iron deficiency anemia TECHNIQUE: Serial plain films and fluoroscopic spot films are performed following oral demonstration of thin barium. COMPARISON: None FINDINGS: Barium was followed sequentially through the small bowel. The mucosal pattern is unremarka ble. No evidence for stricture, polyp, diverticula or obstruction of flow of contrast. Transit time is normal. IMPRESSION: 1: Normal small bowel series. Reviewed, dictated and finalized at location A.
[2022-12-26 15:50] LABS: Basophils Percent Auto 0.5 % (0.2-1.2); Eosinophils Percent Auto 0.3 % (0-4.4); Immature Granulocyte Absolute 0.03 K/mm3 (0.00-0.031); Immature Granulocyte Percent A 0.3 % (0-0.5); Lymphocytes Absolute Auto 1.51 K/mm3 (0.9-3.2); Lymphocytes Percent Auto 17.4 % (18.3-44.2); Mean Corpuscular HGB Conc 24.4 g/dl (32-36); Mean Corpuscular Hemoglobin 16.3 pg (26-34); Mean Platelet Volume 9.6 fl (7.4-10.4); Monocytes Absolute Auto 1.1 K/mm3 (0.1-0.6); Monocytes Percent Auto 12.8 % (2.6-8.5); Neutrophils Percent Auto 68.7 % (45.5-73.1); Nucleated Red Blood Cells Absolute Auto 0.1 K/mm3 (0.0-0.012); Nucleated Red Blood Cells Perc 1.6 % (0.0-0.2); Platelet Count Result 316 k/mm3 (150-375); Red Blood Count 2.88 M/mm3 (4.6-6.20); Red Cell Distribution Width 22.7 % (11.5-14.5); White Blood Count 8.7 K/mm3 (4.5-10.0)
[2022-12-26 15:57] LABS: Anion Gap 8 mmol/L (8-16); Blood Urea Nitrogen 20 mg/dL (9-20); Calcium 8.4 mg/dL (8.4-10.2); Carbon Dioxide 23 mmol/L (22-30); Chloride 107 mmol/L (98-107); Estimated CRCL calculation 47 ml/min; Estimated Glomerular Filt Rate 37; Glucose 134 mg/dL (65-110); Sodium 138 mmol/L (137-145)
[2022-12-26 15:58] LABS: INR 1.7; Partial Thromboplastin Time 31.1 SECONDS (22.3-36.8); Prothrombin Time 19.4 Seconds (11.1-14.7)
[2022-12-26 16:00] LABS: Hemoglobin 4.7 g/dL (14.0-18.0)
[2022-12-26 16:01] LABS: Hematocrit 19.3 % (42.0-52.0); Platelet Estimate Adequate (Adequate)
[2022-12-26 16:02] LABS: Anisocytosis 2+ (NORMAL); Hypochromasia 2+ (NORMAL); Microcytosis 1+ (NORMAL); Ovalocytes 1+ (NORMAL); Schistocytes None Seen (NORMAL)
--- NOTE | 2022-12-26 16:31 | ED.GENADULT ---
HPI - General Adult General Chief complaint: Recheck/Abnormal Lab/Rx Stated complaint: Low HGB Time Seen by Provider: 12/26/22 15:24 History of Present Illness HPI narrative: Patient is a 57-year-old male who presents to the ER with low hemoglobin. He has been feeling fatigued over the last 3 to 4 months. Outpatient labs today showed a hemoglobin below 5. Reports occasional bright red blood per rectum but has not been having overt hemorrhage. No diarrhea or dark black stools. No fevers or chills or sweats. No syncope. He is on apixaban. Related Data Home Medications Medication Instructions Recorded Confirmed famotidine 20 mg tablet 20 mg PO QHS PRN Heartburn 12/26/22 12/26/22 Allergies Allergy/AdvReac Type Severity Reaction Status Date / Time Penicillins Allergy Mild TOLD WAS Verified 11/08/22 13:54 ALLERGIC WHEN A CHILD--???REACTION Review of Systems Review of Systems: All systems reviewed & are unremarkable except as noted in HPI and below Constitutional: Constitutional: Denies chills, Reports fatigue and Denies fever(s) ENT: Denies nasal congestion and Denies sore throat Cardiovascular: Cardiovascular: Denies chest pain, Denies rapid heart rate and Denies radiating jaw, neck or arm pain Gastrointestinal: Gastrointestinal: Denies abdominal pain, Denies diarrhea, Denies nausea and Denies vomiting Comments: Blood per rectum PMFSH Past Medical History Medical History (Updated 12/26/22 @ 22:57 by Tito Sumner MD) Chronic anticoagulation Gastroesophageal reflux disease Heart failure with reduced ejection fraction 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 EF 30 to 35% in February 2022, improved to 60 to 65% in December 2022. Hypertension Paroxysmal atrial fibrillation Suspected sleep apnea Apnea link in February 2022 is suspicious for pathological breathing disorder With an AHI of 20. Tachycardia induced cardiomyopathy Surgical History Surgical History History of hemorrhoidectomy Status post LASIK surgery of both eyes Family History Family History Mother Diabetes mellitus Heart disease afib - had cardioversion in august Social History Social History (Updated 12/26/22 @ 21:35 by Tracey Membreno PA-C) Social History: Surrogate decision maker: Donnell Vargas (mother) or Blanca Simons (friend). Code status: Full code. Smoking packs per day: 1 Smoking cigarettes per day: 20.0 Years smoked: 20 Smoking pack-years: 20.00 Smoking status: Former smoker Tobacco type: cigarettes Second hand tobacco smoke exposure: Yes Smoking end date: 02/05/05 Alcohol intake: current Drinks per week: 14 Substance use: current Substance use type: marijuana Other substance usage details: Few times a week. Lack of Transportation: YES Lack of Food: Sometimes True Current Housing: I Have Housing Concerned About Future Housing: YES Difficulty Paying Gas/Electric Bills: YES Difficulty Paying for Meds: No Currently Unemployed: No Education: Associate Degree Difficulty w/ Childcare or Family Care: No Living arrangements: alone Additional living arrangements comments: Rents a home in [place]. 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 Spiritual care concerns: No Agree to blood products: Yes Exam Narrative: GENERAL: Ill-appearing, well-nourished, and in no acute distress. HEAD: Normocephalic, atraumatic. EYES: PERRL and EOMI. pale conjunctiva ENT: Mucous membranes moist. CHEST: Clear to auscultation. No respiratory distress. HEART: Regular rate and rhythm. Normal peripheral pulses. ABDOMEN: Soft, nontender, nondistended. Hemoccult negative stool and no gross blood. EXTREMITIES: Normal range of motion. No edema. SKIN: Warm, dry, no rash. NEURO: Al
[2022-12-26] MEDS: SODIUM CHLORIDE 0.9% IV 250 ML 30 ML IV CONT (17:02)
--- NOTE | 2022-12-26 17:40 | PM.IMHP ---
H&P: HPI History of Present Illness Date/Time: 12/26/22 17:40 Chief Complaint: Abnormal labs. Narrative: This is a very pleasant 57-year-old male with cardiomyopathy with improved EF of 60 to 65% on echo on 12/22/2022, hypertension, and paroxysmal atrial fibrillation on anticoagulation, who presented to the emergency department for evaluation of abnormal labs. Patient provides the following history. He was diagnosed with presumed tachycardia induced cardiomyopathy in February 2022 and initially he had issues with weakness, chest discomfort, and shortness of breath with exertion. His symptoms improved but over the past 4 to 5 weeks he has once again started to feel increasingly fatigued and he has been getting short of breath with day to day activities such as taking out the trash or even doing laundry. He has also been feeling lightheaded and dizzy with position changes and bending over. He has not been able to work for several weeks as he walks to work and has been unable to do so. He had outpatient labs drawn for evaluation was found to be profoundly anemic and he was sent to the ED. hemoglobin and hematocrit today were 4.7 and 19.3% respectively. With further questioning he does endorse a history of hemorrhoids which have been bleeding more so recently than usual. The blood loss has been more than usual as well. He endorses bright red blood per rectum, there has been no melena. Appetite has been good and he has not had nausea or vomiting. He occasionally has belching and burping which he attributes to heartburn though that is rare. He denies syncope, chest pain, vomiting, hematemesis, melena, and hematuria. He is being admitted in this setting for blood transfusion and closer monitoring. Review of Systems Review of Systems: Twelve systems were reviewed and are negative except for as per HPI. [facility] Past Medical History Medical History (Updated 12/26/22 @ 21:37 by Tracey Membreno PA-C) Chronic anticoagulation Gastroesophageal reflux disease Heart failure with reduced ejection fraction 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 EF 30 to 35% in February 2022, improved to 60 to 65% in December 2022. Hypertension Paroxysmal atrial fibrillation Suspected sleep apnea Apnea link in February 2022 is suspicious for pathological breathing disorder With an AHI of 20. Tachycardia induced cardiomyopathy Surgical History Surgical History History of hemorrhoidectomy Status post LASIK surgery of both eyes Family History Family History Mother Diabetes mellitus Heart disease afib - had cardioversion in august Social History Social History (Updated 12/26/22 @ 21:35 by Tracey Membreno PA-C) Social History: Surrogate decision maker: Donnell Vargas (mother) or Blanca Simons (friend). Code status: Full code. Smoking packs per day: 1 Smoking cigarettes per day: 20.0 Years smoked: 20 Smoking pack-years: 20.00 Smoking status: Former smoker Tobacco type: cigarettes Second hand tobacco smoke exposure: Yes Smoking end date: 02/05/05 Alcohol intake: current Drinks per week: 14 Substance use: current Substance use type: marijuana Other substance usage details: Few times a week. Lack of Transportation: YES Lack of Food: Sometimes True Current Housing: I Have Housing Concerned About Future Housing: YES Difficulty Paying Gas/Electric Bills: YES Difficulty Paying for Meds: No Currently Unemployed: No Education: Associate Degree Difficulty w/ Childcare or Family Care: No Living arrangements: alone Additional living arrangements comments: Rents a home in [place]. 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 Spiritual care concerns: No Agree to blood products: Yes Meds Home Medications and Allergies Home Medica
[2022-12-26 18:13] LABS: Immature Reticulocyte Fraction 29.6 % (3.0-15.9); Reticulocyte Hemoglobin Conten 13.3 pg (28.2-35.7); Reticulocyte Percent 2.69 % (0.7-4.3); Reticulocytes Absolute 0.08 B/L (32.2-175.7)
--- NOTE | 2022-12-26 18:32 | PC.NURSE ---
This patient, Rolando Vargas, was admitted to Medical Room 345-01. Patient/family oriented to hospital policies and general routines including ID bracelet, bed and alarms, visiting hours, pain management, procedures, bathroom and other care routines, personal items, smoking policy, room service/diet, and visiting hours. Information on how to activate the Rapid Response Team has been discussed. Patient/Family are encouraged to report perceived risks to care and to ask questions if they do not understand what they are told or what they should do.
--- NOTE | 2022-12-26 18:44 | PC.NURSE ---
Called [facility] to confirm dosage of amiodarone that patient takes as patient thinks he only takes 200mg instead of the 400 mg that is listed. Pharmacist Lynda in [place] states that the directions listed is for patient to take 400mg of amiodarone daily.
--- NOTE | 2022-12-26 20:20 | PC.NURSE ---
issue with [employer] blood ended and new unit started back to back at 1952
[2022-12-27] VITALS (17 sets, daily range): BP systolic 121–153; BP diastolic 58–71; PULSE 57–76; RESP 14–18; TEMP 36.3–37.2; O2SAT 96–100
[2022-12-27 01:15] LABS: Hematocrit 23.8 % (42.0-52.0)
[2022-12-27 01:24] LABS: Hemoglobin 6.6 g/dL (14.0-18.0)
[2022-12-27 05:54] LABS: Hematocrit 23.2 % (42.0-52.0); Mean Corpuscular Hemoglobin 20.7 pg (26-34); Mean Corpuscular Volume 73.9 fl (80-100); Mean Platelet Volume 9.7 fl (7.4-10.4); Platelet Count Result 220 k/mm3 (150-375); Red Blood Count 3.14 M/mm3 (4.6-6.20); Red Cell Distribution Width 25.2 % (11.5-14.5); White Blood Count 7.4 K/mm3 (4.5-10.0)
[2022-12-27 06:08] LABS: Hemoglobin 6.5 g/dL (14.0-18.0)
[2022-12-27 06:09] LABS: Anion Gap 4 mmol/L (8-16); Blood Urea Nitrogen 16 mg/dL (9-20); Carbon Dioxide 21 mmol/L (22-30); Chloride 112 mmol/L (98-107); Estimated CRCL calculation 59 ml/min; Estimated Glomerular Filt Rate 48; Glucose 91 mg/dL (65-110); Magnesium 2.1 mg/dL (1.6-2.3); Sodium 137 mmol/L (137-145)
[2022-12-27 06:42] LABS: Iron 11 ug/dL (49-181)
[2022-12-27 06:52] LABS: Percent Iron Saturation 3 % (20-50)
[2022-12-27 07:18] LABS: Ferritin 4.89 ng/mL (11.1-264)
[2022-12-27] MEDS: ACETAMINOPHEN 325 MG TABLET 650 MG PO (08:22)
[2022-12-27 08:42] LABS: Free T4 Free Thyroxine Reflex 1.87 ng/dL (0.78-2.19)
[2022-12-27 09:51] LABS: Folic Acid 8.2 ng/mL (2.76->20)
[2022-12-27 09:52] LABS: Total Triiodothyronine (T3) 0.94 NG/ML (0.97-1.69)
[2022-12-27] MEDS: SODIUM CHLORIDE 0.9% IV 250 ML 30 ML IV CONT (10:37)
--- NOTE | 2022-12-27 10:45 | PM.IMPN ---
Progress Note: A&P Assessment and Plan (1) Symptomatic anemia: Code(s): D64.9 - Anemia, unspecified Status: Acute Assessment and Plan: Complaints of increased fatigue, shortness of breath, and dizziness over the past 4 to 5 weeks. H/H low upon arrival at 4.7/19.3 patient was given 4 units of packed red blood cells 12/27/2022 continue trend H&H q.6 anemia labs indicated iron deficiency supplement with ferrous sulfate 325 GI consulted thank you for your help EGD and colonoscopy scheduled for tomorrow transfuse if hemoglobin less than 7 (2) Lower GI bleeding: Code(s): K92.2 - Gastrointestinal hemorrhage, unspecified Status: Acute Assessment and Plan: complaints of blood, which patient states is from the hemorrhoids general surgery consulted thank you for your help EGD and colonoscopy scheduled for tomorrow GI consulted thank you for your help trend H&H hold Eliquis transfuse if less than 7 hemoglobin (3) Renal failure: Code(s): N19 - Unspecified kidney failure Status: Acute Assessment and Plan: creatinine noted to be 1.9 upon arrival most likely related to hypotension, hypoperfusion, dehydration hold losartan and furosemide for now creatinine down to 1.5 today continue trend avoid nephrotoxic medications (4) Paroxysmal atrial fibrillation: Code(s): I48.0 - Paroxysmal atrial fibrillation Status: Acute Assessment and Plan: Currently sounds to be in a sinus rhythm Continue metoprolol with parameters Stable Continue telemetry (5) Chronic anticoagulation: Code(s): Z79.01 - FPC (current) use of anticoagulants Status: Acute Assessment and Plan: Apixaban on hold given profound anemia. (6) Gastroesophageal reflux disease: Code(s): K21.9 - Gastro-esophageal reflux disease without esophagitis Status: Acute Assessment and Plan: History does not suggest upper GI source. Continue famotidine as needed. GI consult as above. (7) Hypertension: Code(s): I10 - Essential (primary) hypertension Status: Chronic Assessment and Plan: Hold antihypertensives given soft blood pressures. Restart when appropriate Trend BP Time Spent With Patient Time: 53 minutes Time with patient: Greater than 35 minutes Subjective Date/time seen: 12/27/22 1045 Interval history: 12/27/22 1045 Patient stated he is feeling a lot better than he did yesterday. He did state that he still having a little bit of bleeding from his rectum however he thinks it is more for the hemorrhoid. He did also state that the symptoms that he had were not anything new since he has had AFib and congestive heart failure. He currently denies any chest pain, nausea, vomiting, diarrhea or constipation. He did state that he was short of breath however he has been short of breath for the last year anyway. 12/26/22? 17:40 This is a very pleasant 57-year-old male with cardiomyopathy with improved EF of 60 to 65% on echo on 12/22/2022, hypertension, and paroxysmal atrial fibrillation on anticoagulation, who presented to the emergency department for evaluation of abnormal labs. Patient provides the following history. He was diagnosed with presumed tachycardia induced cardiomyopathy in February 2022 and initially he had issues with weakness, chest discomfort, and shortness of breath with exertion. His symptoms improved but over the past 4 to 5 weeks he has once again started to feel increasingly fatigued and he has been getting short of breath with day to day activities such as taking out the trash or even doing laundry. He has also been feeling lightheaded and dizzy with position changes and bending over. He has not been able to work for several weeks as he walks to work and has been unable to do so. He had outpatient labs drawn for evaluation was
--- NOTE | 2022-12-27 10:45 | P.PNIM_ITS ---
Progress Note: A&P Assessment and Plan (1) Symptomatic anemia: Code(s): D64.9 - Anemia, unspecified Status: Acute Assessment and Plan: * Complaints of increased fatigue, shortness of breath, and dizziness over the past 4 to 5 weeks. * H/H low upon arrival at 4.7/19.3 * patient was given 4 units of packed red blood cells 12/27/2022 * continue trend H&H q.6 * anemia labs indicated iron deficiency * supplement with ferrous sulfate 325 * GI consulted thank you for your help * EGD and colonoscopy scheduled for tomorrow * transfuse if hemoglobin less than 7 (2) Lower GI bleeding: Code(s): K92.2 - Gastrointestinal hemorrhage, unspecified Status: Acute Assessment and Plan: * complaints of blood, which patient states is from the hemorrhoids * general surgery consulted thank you for your help * EGD and colonoscopy scheduled for tomorrow * GI consulted thank you for your help * trend H&H * hold Eliquis * transfuse if less than 7 hemoglobin (3) Renal failure: Code(s): N19 - Unspecified kidney failure Status: Acute Assessment and Plan: * creatinine noted to be 1.9 upon arrival * most likely related to hypotension, hypoperfusion, dehydration * hold losartan and furosemide for now * creatinine down to 1.5 today * continue trend * avoid nephrotoxic medications (4) Paroxysmal atrial fibrillation: Code(s): I48.0 - Paroxysmal atrial fibrillation Status: Acute Assessment and Plan: * Currently sounds to be in a sinus rhythm * Continue metoprolol with parameters * Stable * Continue telemetry (5) Chronic anticoagulation: Code(s): Z79.01 - senior care (current) use of anticoagulants Status: Acute Assessment and Plan: * Apixaban on hold given profound anemia. (6) Gastroesophageal reflux disease: Code(s): K21.9 - Gastro-esophageal reflux disease without esophagitis Status: Acute Assessment and Plan: History does not suggest upper GI source. Continue famotidine as needed. GI consult as above. (7) Hypertension: Code(s): I10 - Essential (primary) hypertension Status: Chronic Assessment and Plan: Hold antihypertensives given soft blood pressures. Restart when appropriate Trend BP Time Spent With Patient Time: 53 minutes Time with patient: Greater than 35 minutes Subjective Date/time seen: 03/22/23 1045 Interval history: 12/27/22 1045 Patient stated he is feeling a lot better than he did yesterday. He did state that he still having a little bit of bleeding from his rectum however he thinks it is more for the hemorrhoid. He did also state that the symptoms that he had were not anything new since he has had AFib and congestive heart failure. He currently denies any chest pain, nausea, vomiting, diarrhea or constipation. He did state that he was short of breath however he has been short of breath for the last year anyway. 12/26/22? 17:40 This is a very pleasant 57-year-old male with cardiomyopathy with improved EF of 60 to 65% on echo on 12/22/2022, hypertension, and paroxysmal atrial fibrillation on anticoagulation, who presented to the emergency department for evaluation of abnormal labs. Patient provides the following history. He was diagnosed with presumed tachycardia induced cardiomyopathy in February 2022 and initially he h
--- NOTE | 2022-12-27 12:12 | PM.CNGS ---
Assessment and Plan Assessment and plan (1) Hemorrhoids: Code(s): K64.9 - Unspecified hemorrhoids Status: Acute Assessment and Plan: Patient presents with profound anemia and reported intermittent rectal bleeding with hemorrhoids. Hemoglobin was 4.6 yesterday and he has received 2 units of PRBCs. His hemoglobin is up to 6.5 and he is getting a third unit today. We would recommend to continue with further work-up and treatment of his anemia. Agree with GI consultation and will await their recommendations for endoscopic evaluation. If he is found to have hemorrhoids on colonoscopy without any other possible causes of his anemia, then we could consider surgery prior to discharge while his Eliquis is being held. Will continue to follow along while completing his anemia work-up and decide on need and timing of surgery accordingly. Thank you for allowing us to see the patient in consultation. (2) Rectal bleeding: Code(s): K62.5 - Hemorrhage of anus and rectum Status: Acute Assessment and Plan: Mild intermittent rectal bleeding suspected to be from hemorrhoids. Has reportedly gotten slightly worse over the past few weeks. No active bleeding at the time of my exam. Will await GI consult as mentioned above. (3) Symptomatic anemia: Code(s): D64.9 - Anemia, unspecified Status: Acute Assessment and Plan: Continue to transfuse as needed, monitor serial H/H, await GI consult. (4) Chronic anticoagulation: Code(s): Z79.01 - technician terminal and repeater (current) use of anticoagulants Status: Acute Assessment and Plan: Eliquis on hold. Last dose yesterday (12/26/22) around 9:00 am. (5) Paroxysmal atrial fibrillation: Code(s): I48.0 - Paroxysmal atrial fibrillation Status: Acute (6) Tachycardia induced cardiomyopathy: Code(s): R00.0 - Tachycardia, unspecified; I43 - Cardiomyopathy in diseases classified elsewhere Status: Acute Plan I have discussed the patient's case and plan of care with Dr. Paul. History of Present Illness Consult details Consult date: 12/27/22 Reason for consult: other (Rectal bleeding, hemorrhoids) Requesting physician: Tracey Membreno, [place] Narrative: This is a 57-year-old man who presented to the ER yesterday for evaluation of abnormal outpatient labs. He was diagnosed with cardiomyopathy about 1 year ago that is now with improved EF of 60-65% on echo in December 2022. Since being diagnosed with cardiomyopathy, he reports dealing with shortness of breath with exertion and fatigue. Over the past few months, his fatigue has progressively worsened. He has become so fatigued and short of breath that he is unable to walk to take the trash out. He also complains of dizziness and lightheadedness upon standing or when bending over. This is so severe that he has had a few falls at home with near-syncopal episodes, but denies syncope. 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 He was told he appeared pale and they sent him for outpatient labs. He was found to have a hemoglobin of 4.6 and was sent to the ER for evaluation and treatment. Labs in the ER confirmed a hemoglobin of 4.7, hematocrit 19.3, creatinine 1.9. In review of labs, he had a creatinine of 1.7 about a year ago. He had 3 units of packed red blood cells ordered. He has received 2 units so far and nursing is planning to give the third unit this morning. His hemoglobin has come up to 6.5. Hemoccult negative stool in the ER. The patient also reports intermittent rectal bleeding that he associates with hemorrhoids. Subsequently, our service has been consulted for evaluation of hemorrhoids with rectal bleeding and anemia. GI has also been consulted. He is currently NPO. He is now seen on medical floor. He reports having a hemorrhoidectomy about 15 years ago. Since then, he has noticed intermittent bleeding at times after bowel movements. He is currently
--- NOTE | 2022-12-27 12:54 | WPDGICN ---
Assessment and Plan Assessment and plan (1) CHE (iron deficiency anemia): Code(s): D50.9 - Iron deficiency anemia, unspecified Status: Acute Assessment and Plan: Patient with newly identified iron deficiency anemia. Patient has no obvious bleeding aside from intermittent bright red blood per rectum attributed to hemorrhoids. Plan for colonoscopy an EGD. To assess the anemia. Further recommendations will be given after endoscopy. Anti by coagulation should be held initially as this undoubtedly contributes to the possibility of blood loss. (2) Rectal bleeding: Code(s): K62.5 - Hemorrhage of anus and rectum Status: Acute Assessment and Plan: patient has noticed intermittent bright red blood per rectum. This may be from hemorrhoids but other etiologies cannot be excluded. Colonoscopy will be performed to assess this as well as iron deficiency anemia. (3) Paroxysmal atrial fibrillation: Code(s): I48.0 - Paroxysmal atrial fibrillation Status: Acute (4) Chronic anticoagulation: Code(s): Z79.01 - custodial (current) use of anticoagulants Status: Acute Assessment and Plan: Anticoagulation to be held until etiology for anemia determine. Cannot exclude that this could contribute to blood loss. GI Consult Note Consult date/time: 12/27/22 12:54 Reason for consult: iron deficiency anemia HPI: Rolando Vargas is a 57 year old male I am asked to see because of iron deficiency anemia. Patient states he was in his usual state of health until last February when he was diagnosed with atrial fibrillation and congestive heart failure. At that time he was placed on Eliquis and other medications to help improve his congestive heart failure. Patient did well until 1 month ago when he noticed progressive fatigue and weakness. Dyspnea on exertion. He underwent a cardiac stress test and was found to be profoundly anemic for this reason presented the emergency room and was admitted to the hospital. Patient has noticed a small amount of bright red blood per rectum intermittently. This been attributed to hemorrhoids. He denies any other bruising. He has no nose bleeds. No other obvious blood loss. Family history is noncontributory. Patient's appetite is remain normal. Review of Systems Review of Systems: Review of systems noncontributory. [facility] Past Medical History Medical History Chronic anticoagulation Gastroesophageal reflux disease Heart failure with reduced ejection fraction 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 EF 30 to 35% in February 2022, improved to 60 to 65% in December 2022. Hypertension Paroxysmal atrial fibrillation Suspected sleep apnea Apnea link in February 2022 is suspicious for pathological breathing disorder With an AHI of 20. Tachycardia induced cardiomyopathy Surgical History Surgical History History of hemorrhoidectomy Status post LASIK surgery of both eyes Family History Family History Mother Diabetes mellitus Heart disease afib - had cardioversion in august Social History Social History Social History: Surrogate decision maker: Donnell Sam (mother) or Blanca Simons (friend). Code status: Full code. Smoking packs per day: 1 Smoking cigarettes per day: 20.0 Years smoked: 20 Smoking pack-years: 20.00 Smoking status: Former smoker Tobacco type: cigarettes Second hand tobacco smoke exposure: Yes Smoking end date: 02/05/05 Alcohol intake: current Drinks per week: 14 Substance use: current Substance use type: marijuana Other substance usage details: Few times a week. Lack of Transportation: YES Lack of Food: Sometimes True Current Housing: I Have Housing Concerned About Future H
[2022-12-27] MEDS: PEG (High)/E-LYTE SOLN 4,000 ML BTL 4000 ML PO (13:27)
[2022-12-27 15:03] LABS: Hematocrit 30.5 % (42.0-52.0); Hemoglobin 8.8 g/dL (14.0-18.0)
[2022-12-27] MEDS: busPIRone HCL 10 MG TABLET PO (17:20)
[2022-12-27 21:19] LABS: Hematocrit 29.8 % (42.0-52.0); Hemoglobin 8.6 g/dL (14.0-18.0)
[2022-12-28] VITALS (14 sets, daily range): BP systolic 116–153; BP diastolic 24–77; PULSE 58–75; RESP 16–24; TEMP 36.3–36.7; O2SAT 96–100
[2022-12-28] MEDS: ACETAMINOPHEN 325 MG TABLET 650 MG PO ×2 (02:34→16:40)
[2022-12-28 06:13] LABS: Basophils Percent Auto 0.6 % (0.2-1.2); Eosinophils Absolute Auto 0.2 K/mm3 (0-0.3); Eosinophils Percent Auto 2.1 % (0-4.4); Immature Granulocyte Absolute 0.02 K/mm3 (0.00-0.031); Immature Granulocyte Percent A 0.3 % (0-0.5); Lymphocytes Absolute Auto 1.31 K/mm3 (0.9-3.2); Lymphocytes Percent Auto 18.2 % (18.3-44.2); Mean Corpuscular HGB Conc 28.6 g/dl (32-36); Mean Corpuscular Hemoglobin 22.1 pg (26-34); Mean Corpuscular Volume 77.3 fl (80-100); Mean Platelet Volume 10.1 fl (7.4-10.4); Monocytes Percent Auto 13.9 % (2.6-8.5); Neutrophils Absolute Auto 4.7 K/mm3 (1.3-6.7); Neutrophils Percent Auto 64.9 % (45.5-73.1); Nucleated Red Blood Cells Perc 0.6 % (0.0-0.2); Platelet Count Result 223 k/mm3 (150-375); Red Blood Count 3.62 M/mm3 (4.6-6.20); White Blood Count 7.2 K/mm3 (4.5-10.0)
[2022-12-28 06:16] LABS: Alanine Aminotransferase 19 U/L (6-50); Albumin Level 3.3 g/dL (3.5-5.1); Alkaline Phosphatase 47 U/L (38-126); Anion Gap 4 mmol/L (8-16); Aspartate Amino Transferase 24 U/L (17-59); Bilirubin,Total 1.4 mg/dL (0.2-1.3); Blood Urea Nitrogen 14 mg/dL (9-20); Calcium 8.1 mg/dL (8.4-10.2); Carbon Dioxide 25 mmol/L (22-30); Chloride 109 mmol/L (98-107); Estimated CRCL calculation 63 ml/min; Estimated Glomerular Filt Rate 52; Glucose 86 mg/dL (65-110); Magnesium 2.1 mg/dL (1.6-2.3); Potassium 3.9 mmol/L (3.4-5.0); Sodium 138 mmol/L (137-145)
[2022-12-28 07:24] LABS: Hypochromasia 1+ (NORMAL); Microcytosis 1+ (NORMAL); Platelet Estimate Adequate (Adequate); Poikilocytosis 1+ (NORMAL); Schistocytes None Seen (NORMAL)
[2022-12-28] MEDS: busPIRone HCL 10 MG TABLET PO ×2 (08:12→16:41)
--- NOTE | 2022-12-28 10:30 | P.PNIM_ITS ---
Progress Note: A&P Assessment and Plan (1) Symptomatic anemia: Code(s): D64.9 - Anemia, unspecified Status: Acute Assessment and Plan: * Complaints of increased fatigue, shortness of breath, and dizziness over the past 4 to 5 weeks. * H/H low upon arrival at 4.7/19.3 * patient was given 4 units of packed red blood cells 12/27/2022 * anemia labs indicated iron deficiency * supplement with ferrous sulfate 325 * GI consulted thank you for your help * EGD and colonoscopy shows signs of old bleeding within an internal hemorrhoid * Small bowel follow through taken * transfuse if hemoglobin less than 7 (2) Lower GI bleeding: Code(s): K92.2 - Gastrointestinal hemorrhage, unspecified Status: Acute Assessment and Plan: * complaints of blood, which patient states is from the hemorrhoids * general surgery consulted thank you for your help * EGD and colonoscopy found old bleeding from a hemorrhoid * GI consulted thank you for your help * trend H&H * hold Eliquis * transfuse if less than 7 hemoglobin (3) Renal failure: Code(s): N19 - Unspecified kidney failure Status: Acute Assessment and Plan: * creatinine noted to be 1.9 upon arrival * most likely related to hypotension, hypoperfusion, dehydration * hold losartan and furosemide for now * creatinine down to 1.4 today * continue trend * avoid nephrotoxic medications (4) Paroxysmal atrial fibrillation: Code(s): I48.0 - Paroxysmal atrial fibrillation Status: Acute Assessment and Plan: * Currently sounds to be in a sinus rhythm * Continue metoprolol with parameters * Stable * Continue telemetry (5) Chronic anticoagulation: Code(s): Z79.01 - ad terminal makeup operator (current) use of anticoagulants Status: Acute Assessment and Plan: * Apixaban on hold given profound anemia. (6) Gastroesophageal reflux disease: Code(s): K21.9 - Gastro-esophageal reflux disease without esophagitis Status: Acute Assessment and Plan: History does not suggest upper GI source. Continue famotidine as needed. GI consult as above. (7) Hypertension: Code(s): I10 - Essential (primary) hypertension Status: Chronic Assessment and Plan: Restarted home medications Current BP 153/77 Continue to trend BP Adjust therapy as indicated Time Spent With Patient Time: 48 minutes Time with patient: Greater than 35 minutes Subjective Date/time seen: 12/28/22 1030 Interval history: 12/28/22 1030 patient stated that he was feeling a whole lot better today. He also stated that he was not having any shortness of breath that he had been. He denies any current chest pain, shortness a breath, nausea, vomiting, diarrhea or constipation. He also stated that he is feeling hungry. His color looks good. Reviewed his library monitor and decided that he did not get any longer and DC'd his telemetry. 12/27/22 1045 Patient stated he is feeling a lot better than he did yesterday. He did state that he still having a little bit of bleeding from his rectum however he thinks it is more for the hemorrhoid. He did also state that the symptoms that he had were not anything new since he has had AFib and congestive heart failure. He currently denies any chest pain, nausea, vomiting, diarrhea or constipation. He did state that he was sh
--- NOTE | 2022-12-28 10:30 | PM.IMPN ---
Progress Note: A&P Assessment and Plan (1) Symptomatic anemia: Code(s): D64.9 - Anemia, unspecified Status: Acute Assessment and Plan: Complaints of increased fatigue, shortness of breath, and dizziness over the past 4 to 5 weeks. H/H low upon arrival at 4.7/19.3 patient was given 4 units of packed red blood cells 12/27/2022 anemia labs indicated iron deficiency supplement with ferrous sulfate 325 GI consulted thank you for your help EGD and colonoscopy shows signs of old bleeding within an internal hemorrhoid Small bowel follow through taken transfuse if hemoglobin less than 7 (2) Lower GI bleeding: Code(s): K92.2 - Gastrointestinal hemorrhage, unspecified Status: Acute Assessment and Plan: complaints of blood, which patient states is from the hemorrhoids general surgery consulted thank you for your help EGD and colonoscopy found old bleeding from a hemorrhoid GI consulted thank you for your help trend H&H hold Eliquis transfuse if less than 7 hemoglobin (3) Renal failure: Code(s): N19 - Unspecified kidney failure Status: Acute Assessment and Plan: creatinine noted to be 1.9 upon arrival most likely related to hypotension, hypoperfusion, dehydration hold losartan and furosemide for now creatinine down to 1.4 today continue trend avoid nephrotoxic medications (4) Paroxysmal atrial fibrillation: Code(s): I48.0 - Paroxysmal atrial fibrillation Status: Acute Assessment and Plan: Currently sounds to be in a sinus rhythm Continue metoprolol with parameters Stable Continue telemetry (5) Chronic anticoagulation: Code(s): Z79.01 - emt intermediate (current) use of anticoagulants Status: Acute Assessment and Plan: Apixaban on hold given profound anemia. (6) Gastroesophageal reflux disease: Code(s): K21.9 - Gastro-esophageal reflux disease without esophagitis Status: Acute Assessment and Plan: History does not suggest upper GI source. Continue famotidine as needed. GI consult as above. (7) Hypertension: Code(s): I10 - Essential (primary) hypertension Status: Chronic Assessment and Plan: Restarted home medications Current BP 153/77 Continue to trend BP Adjust therapy as indicated Time Spent With Patient Time: 48 minutes Time with patient: Greater than 35 minutes Subjective Date/time seen: 12/28/22 1030 Interval history: 12/28/22 1030 patient stated that he was feeling a whole lot better today. He also stated that he was not having any shortness of breath that he had been. He denies any current chest pain, shortness a breath, nausea, vomiting, diarrhea or constipation. He also stated that he is feeling hungry. His color looks good. Reviewed his surveillance system monitor and decided that he did not get any longer and DC'd his telemetry. 12/27/22 1045 Patient stated he is feeling a lot better than he did yesterday. He did state that he still having a little bit of bleeding from his rectum however he thinks it is more for the hemorrhoid. He did also state that the symptoms that he had were not anything new since he has had AFib and congestive heart failure. He currently denies any chest pain, nausea, vomiting, diarrhea or constipation. He did state that he was short of breath however he has been short of breath for the last year anyway. 12/26/22? 17:40 This is a very pleasant 57-year-old male with cardiomyopathy with improved EF of 60 to 65% on echo on 12/22/2022, hypertension, and paroxysmal atrial fibrillation on anticoagulation, who presented to the emergency department for evaluation of abnormal labs. Patient provides the following history. He was diagnosed with presumed tachycardia induced cardiomyopathy in February 2022 and initially he had issues with weakness, chest discomfort, and s
[2022-12-28] MEDS: LACTATED RINGERS 1,000 ML 150 ML IV CONT (11:22)
--- NOTE | 2022-12-28 11:49 | WPDANESEPPF ---
Anes - Initial Pre Proc Eval Procedure: Operation Date: 12/28/22 12:30 Proposed Procedures p Esophagogastroduodenoscopy & Colonoscopy - Luis Bazzi MD Date/Time: 12/28/22 11:49 Surgeon: Nicholas Wagner MD Pre Op Diagnosis: Anemia Patient Data Age: 57 Gender: M Height: 1.91 m Weight: 96.2 kg Last Vital Signs Temp 36.3 C L 12/28/22 11:15 Pulse 58 L 12/28/22 11:15 Resp 18 12/28/22 11:15 BP 150/72 H 12/28/22 11:15 Pulse Ox 100 12/28/22 11:15 O2 Del Method Room Air 12/28/22 11:15 Allergies Allergy/AdvReac Type Severity Reaction Status Date / Time Penicillins Allergy Mild TOLD WAS Verified 11/08/22 13:54 ALLERGIC WHEN A CHILD--???REACTION Home Medications Medication Instructions Recorded Confirmed Type metoprolol tartrate 50 mg tablet 50 mg PO Q12HR #30 tabs 02/17/22 12/26/22 Rx buspirone 10 mg tablet 10 mg PO BID #60 tabs 08/08/22 12/26/22 Rx losartan 50 mg tablet (Cozaar) 50 mg PO DAILY #30 tabs 08/08/22 12/26/22 Rx meclizine 25 mg tablet 25 mg PO TID PRN dizziness #30 tabs 08/08/22 12/26/22 Rx amiodarone 400 mg tablet 400 mg PO DAILY #30 tabs 08/15/22 12/26/22 Rx apixaban 5 mg tablet (Eliquis) 5 mg PO BID #60 tabs 11/08/22 12/26/22 Rx furosemide 20 mg tablet 20 mg PO DAILY #30 tabs 11/09/22 12/26/22 Rx famotidine 20 mg tablet 20 mg PO QHS PRN Heartburn 12/26/22 12/26/22 History Laboratory Tests 12/26/22 12/27/22 12/27/22 15:41 14:54 21:11 WBC RBC Hgb 8.8 g/dL L g/dL 8.6 g/dL L g/dL (14.0-18.0) (14.0-18.0) Hct 30.5 % L % 29.8 % L % (42.0-52.0) (42.0-52.0) MCV MCH MCHC RDW Plt Count MPV Immature Gran % (Auto) Neut % (Auto) Lymph % (Auto) [place] % (Auto) Eos % (Auto) Baso % (Auto) Lymph # (Auto) [place] # (Auto) Eos # (Auto) Baso # (Auto) Abs Immat Gran (auto) Absolute Neuts (auto) Absolute Nucleated RBC Nucleated RBC % Platelet Estimate % Immature Plt Fraction Hypochromasia Poikilocytosis Microcytosis Schistocytes Sodium Potassium Chloride Carbon Dioxide Anion Gap BUN Creatinine Estim Creat Clear Calc Estimated GFR Glucose Calcium Magnesium Total Bilirubin AST ALT Alkaline Phosphatase Total Protein Albumin Crossmatch See Detail 12/28/22 12/28/22 05:32 05:32 WBC 7.2 K/mm3 K/mm3 (4.5-10.0) RBC 3.62 M/mm3 L M/mm3 (4.6-6.20) Hgb 8.0 g/dL L g/dL (14.0-18.0) Hct 28.0 % L % (42.0-52.0) MCV 77.3 fl L fl (80-100) MCH 22.1 pg L D pg (26-34) MCHC 28.6 g/dl L g/dl (32-36) RDW 25.0 % H % (11.5-14.5) Plt Count 223 k/mm3 k/mm3 (150-375) MPV 10.1 fl fl (7.4-10.4) Immature Gran % (Auto) 0.3 % % (0-0.5) Neut % (Auto) 64.9 % % (45.5-73.1) Lymph % (Auto) 18.2 % L % (18.3-44.2) [place] % (Auto) 13.9 % H % (2.6-8.5) Eos % (Auto) 2.1 % % (0-4.4) Baso % (Auto) 0.6 % % (0.2-1.2) Lymph # (Auto) 1.31 K/mm3 K/mm3 (0.9-3.2) [place] # (Auto) 1.0 K/mm3 H K/mm3 (0.1-0.6) Eos # (Auto) 0.2 K/mm3 K/mm3 (0-0.3) Baso # (Auto) 0.0 K/mm3 K/mm3 (0.0-0.1) Abs Immat Gran (auto) 0.02 K/mm3 K/mm3 (0.00-0.031) Absolute Neuts (auto) 4.7 K/mm3 K/mm3 (1.3-6.7) Absolute Nucleated RBC 0.0 K/mm3 K/mm3 (0.0-0.012) Nucleated RBC % 0.6 % H % (0.0-0.2) Platelet Estimate Adequate (Adequate) % Barbara
--- NOTE | 2022-12-28 12:17 | SUR.OPER ---
EGD ended 1210 colonoscopy started 1215
[2022-12-28] MEDS: SIMETHICONE ORAL SUSPENSION 20 MG/0.3 ML 30 ML BOTTLE 0.6 ML PO (12:20)
--- NOTE | 2022-12-28 14:21 | WPDPN ---
Progress Note: A&P Assessment and Plan (1) CHE (iron deficiency anemia): Code(s): D50.9 - Iron deficiency anemia, unspecified Status: Acute Assessment and Plan: This is most likely due to chronic bleeding from his grade 3 and grade 4 internal hemorrhoids. He has been given blood transfusion and his hemoglobin today is adequate at 8.0. (2) Hemorrhoids: Code(s): K64.9 - Unspecified hemorrhoids Status: Acute Assessment and Plan: Colonoscopy and EGD were performed today and there is no evidence of other sources of bleeding other than his large internal hemorrhoids. I have discussed with the patient and he wishes to proceed with and excisional hemorrhoidectomy tomorrow to treat his sources of GI bleeding while he was still here in the hospital and off of his Eliquis. Risks, benefits, indications, and expected outcomes were discussed in detail with the patient and/or family. They understand and I have answered all other questions. They wished to proceed with surgery as outlined above. Subjective Date/time seen: 12/28/22 14:21 Interval history: Patient is doing well today. No bleeding with bowel movements today. He had his colonoscopy an EGD performed today. EGD was normal. Colonoscopy was normal as well without any polyps or other lesions. Large internal hemorrhoids with stigmata of bleeding were seen. Review of Systems Review of Systems: The remainder of the review of systems to include constitutional, HEENT, cardiovascular, respiratory, GI, , integumentary, musculoskeletal, endocrine, immunologic, hematologic, psychiatric, and neurologic are all negative except for which is mentioned above in the HPI. Exam Narrative: Perianal and rectal exam reveals prolapsing circumferential internal hemorrhoids with 1 of the hemorrhoids showing friability and likely stigmata of bleeding. No thrombosed hemorrhoids are noted. Patient has normal sphincter tone. Const: General: comfortable and no acute distress Eyes: General: appearance normal, both eyes and all related structures Pupils: Equal, round and reactive pupils present Neck: Neck: supple and no JVD Resp: Effort & Inspection: normal respiratory effort Auscultation: clear to auscultation bilaterally Cardio: Rate: regular rate Rhythm: regular rhythm Neuro: Speech: normal speech Sensory Exam: normal sensation Psych: Mental Status: mental status grossly normal Affect: normal affect Objective Data Vital Signs Vital Signs: Vital Signs - 24 hr 12/27/22 15:04 12/27/22 15:04 12/27/22 16:00 Temperature Pulse Rate 61 Respiratory Rate Blood Pressure 153/64 H 146/58 H Pulse Oximetry Oxygen Delivery 12/27/22 20:58 12/27/22 21:01 12/27/22 21:04 Temperature 36.6 C Pulse Rate 76 76 Respiratory Rate 16 Blood Pressure 143/69 H 134/71 131/60 Pulse Oximetry 99 99 Oxygen Delivery 12/27/22 20:00 12/27/22 20:00 12/28/22 00:00 Temperature Pulse Rate 60 76 62 Respiratory Rate 16 Blood Pressure Pulse Oximetry 99 Oxygen Delivery Room Air 12/28/22 04:00 12/28/22 04:44 12/28/22 08:00 Temperature 36.7 C Pulse Rate 67 75 Respiratory Rate 16 Blood Pressure 132/60 Pulse Oximetry 96 Oxygen Delivery Room Air 12/28/22 11:15 12/28/22 08:00 12/28/22 12:30 Temperature 36.3 C L Pulse Rate 58 L 75 69 Respiratory Rate 18 24 H Blood Pressure 150/72 H 116/24 L Pulse Oximetry 100 100 Oxygen Delivery Room Air Room Air 12/28/22 12:40 Temperature Pulse Rate 60 Respiratory Rate 22 H Blood Pressure 153/77 H Pulse Oximetry 100 Oxygen Delivery Room Air Intake/Output Intake/Output: Intake & Output 12/25/22 12/26/22 12/27/22 12/28/22 23:59 23:59 23:59 23:59 Intake Total 700 830 400 Balance 700 830 400 Meds/Results Medications: Active Medications Generic Name Dose Route Start Last Admin Trade Name Freq PRN Reason Stop Dose Admin Acetamin
[2022-12-28] MEDS: METOPROLOL TARTRATE 50 MG TAB PO (20:39)
[2022-12-29] VITALS (12 sets, daily range): BP systolic 114–158; BP diastolic 59–87; PULSE 55–68; RESP 14–20; TEMP 35.6–36.6; O2SAT 97–100
[2022-12-29] MEDS: ACETAMINOPHEN 325 MG TABLET 650 MG PO (00:34)
[2022-12-29] MEDS: AMIODARONE HCL 200 MG TABLET 400 MG PO (08:11)
[2022-12-29] MEDS: FUROSEMIDE 20 MG TABLET PO (08:12)
[2022-12-29] MEDS: busPIRone HCL 10 MG TABLET PO ×2 (08:12→17:48)
[2022-12-29] MEDS: LOSARTAN POTASSIUM 50 MG TABLET PO (08:12)
[2022-12-29] MEDS: METOPROLOL TARTRATE 50 MG TAB PO ×2 (08:12→21:21)
--- NOTE | 2022-12-29 10:06 | WPDGIPROGNO ---
Progress Note: A&P Assessment and Plan (1) CHE (iron deficiency anemia): Code(s): D50.9 - Iron deficiency anemia, unspecified Status: Acute Assessment and Plan: Patient with iron deficiency anemia. Suggesting chronic GI blood loss. Iron replacement advised. Surgery on hemorrhoids to be plan today. Small-bowel follow-through was unremarkable. If anemia persists consider hematology evaluation after iron replacement. (2) Rectal bleeding: Code(s): K62.5 - Hemorrhage of anus and rectum Status: Acute Assessment and Plan: No additional bleeding at this time. It appears as though rectal bleeding was from his hemorrhoids which are quite large and irritated. (3) Hemorrhoids: Code(s): K64.9 - Unspecified hemorrhoids Status: Acute Assessment and Plan: Surgery to be performed today. Further recommendations per Surgical Service. Subjective Date/time seen: 12/29/22 10:06 Interval history: Patient comfortable today. No additional bleeding noted. Small-bowel follow-through was negative. Surgery on hemorrhoids anticipated. Review of Systems Review of Systems: Review of systems noncontributory. Exam Narrative: Physical exam reveals patient to be alert. Vital signs stable. HEENT exam is unremarkable. Patient is anicteric. Lungs are clear to auscultation and percussion. Heart is without murmur or extra sounds. Abdomen bowel sounds present soft nontender. Objective Data Vital Signs Vital Signs: Vital Signs - 24 hr 12/28/22 11:15 12/28/22 12:30 12/28/22 12:40 Temperature 97.3 F L Pulse Rate 58 L 69 60 Respiratory Rate 18 24 H 22 H Blood Pressure 150/72 H 116/24 L 153/77 H Pulse Oximetry 100 100 100 Oxygen Delivery Room Air Room Air Room Air 12/28/22 14:00 12/28/22 15:57 12/28/22 14:00 Temperature 97.9 F Pulse Rate 60 Respiratory Rate 18 Blood Pressure 145/62 H 138/58 L 121/64 Pulse Oximetry 100 Oxygen Delivery 12/28/22 19:54 12/28/22 19:56 12/28/22 19:59 Temperature 97.3 F L Pulse Rate 63 Respiratory Rate 18 Blood Pressure 125/56 L 125/54 L 123/54 L Pulse Oximetry 100 Oxygen Delivery 12/28/22 20:39 12/28/22 23:22 12/29/22 05:12 Temperature 97.1 F L Pulse Rate 63 60 Respiratory Rate 18 Blood Pressure 137/68 Pulse Oximetry 99 98 Oxygen Delivery Room Air Intake/Output Intake/Output: Intake & Output 12/26/22 12/27/22 12/28/22 12/29/22 23:59 23:59 23:59 23:59 Intake Total 700 830 760 350 Balance 700 830 760 350 Meds/Results Medications: Active Medications Generic Name Dose Route Start Last Admin Trade Name Freq PRN Reason Stop Dose Admin Acetaminophen 650 mg 12/26/22 21:43 12/29/22 00:34 Acetaminophen 325 Mg Tablet PO 650 mg Q6H PRN Administration Mild Pain (1-3) or Fever Amiodarone HCl 400 mg 12/29/22 09:00 12/29/22 08:11 Amiodarone Hcl 200 Mg Tablet PO 400 mg DAILY KACY Administration Buspirone HCl 10 mg 12/27/22 17:00 12/29/22 08:12 Buspirone Hcl 10 Mg Tablet PO 10 mg BID KACY Administration Famotidine 20 mg 12/27/22 15:13 Famotidine 20 Mg Tablet PO QHS PRN Heartburn Furosemide 20 mg 12/29/22 09:00 12/29/22 08:12 Furosemide 20 Mg Tablet PO 20 mg DAILY KACY Administration Losartan Potassium 50 mg 12/29/22 09:00 12/29/22 08:12 Losartan Potassium 50 Mg Tablet PO 50 mg DAILY KACY Administration Metoprolol Tartrate 50 mg 12/28/22 21:00 12/29/22 08:12 Metoprolol Tartrate 50 Mg Tab PO 50 mg Q12HR KACY Administration Ondansetron HCl 4 mg 12/26/22 21:43 Ondansetron Inj 4 Mg/2 Ml Vial IV PUSH Q6H PRN Nausea And Vomiting Simethicone 0.6 ml 12/28/22 12:19 12/28/22 12:20 Simethicone Oral Suspension 20 Mg/0.3 Ml 30 Ml Bottle PO 0.6 ml ONCE PRN Administration Gas Discomfort Radiology Results: ITS Impressions Upper GI and Small Bowel X-Ray 12/28/22 15:20
--- NOTE | 2022-12-29 11:00 | P.PNIM_ITS ---
Progress Note: A&P Assessment and Plan (1) Symptomatic anemia: Code(s): D64.9 - Anemia, unspecified Status: Acute Assessment and Plan: * Complaints of increased fatigue, shortness of breath, and dizziness over the past 4 to 5 weeks. * H/H low upon arrival at 4.7/19.3, currently 8.0/28.0 * patient was given 4 units of packed red blood cells 12/27/2022 * anemia labs indicated iron deficiency * supplement with ferrous sulfate 325 * GI consulted thank you for your help * EGD and colonoscopy shows signs of old bleeding within an internal hemorrhoid * Small bowel follow through taken * transfuse if hemoglobin less than 7 (2) Lower GI bleeding: Code(s): K92.2 - Gastrointestinal hemorrhage, unspecified Status: Acute Assessment and Plan: * complaints of blood, which patient states is from the hemorrhoids * general surgery consulted thank you for your help * EGD and colonoscopy found old bleeding from a hemorrhoid * GI consulted thank you for your help * trend H&H * hold Eliquis * transfuse if less than 7 hemoglobin (3) Renal failure: Code(s): N19 - Unspecified kidney failure Status: Acute Assessment and Plan: * creatinine noted to be 1.9 upon arrival * most likely related to hypotension, hypoperfusion, dehydration * hold losartan and furosemide for now * creatinine down to 1.4 today * continue trend * avoid nephrotoxic medications (4) Paroxysmal atrial fibrillation: Code(s): I48.0 - Paroxysmal atrial fibrillation Status: Acute Assessment and Plan: * Currently sounds to be in a sinus rhythm * Continue metoprolol with parameters * Stable * Continue telemetry (5) Chronic anticoagulation: Code(s): Z79.01 - prison (current) use of anticoagulants Status: Acute Assessment and Plan: * Apixaban on hold given profound anemia. (6) Gastroesophageal reflux disease: Code(s): K21.9 - Gastro-esophageal reflux disease without esophagitis Status: Acute Assessment and Plan: History does not suggest upper GI source. Continue famotidine as needed. GI consult as above. (7) Hypertension: Code(s): I10 - Essential (primary) hypertension Status: Chronic Assessment and Plan: Restarted home medications Current BP 141/66 Continue to trend BP Adjust therapy as indicated (8) Hemorrhoids: Code(s): K64.9 - Unspecified hemorrhoids Status: Acute Assessment and Plan: * Noted on the colonoscopy with old bleeding * General surgery consulted * Intervention planned for today * Continue to trend labs and pain Time Spent With Patient Time: 45 minutes Time with patient: Greater than 35 minutes Subjective Date/time seen: 12/29/22 1100 Interval history: 12/29/22 1100 Patient stated that he feels better than he has in a really long time. He stated that he is able to shower without further problems. He denies any chest pain, shortness of breath, nausea, vomiting, diarrhea, constipation. 12/28/22 1030 patient stated that he was feeling a whole lot better today. He also stated that he was not having any shortness of breath that he had been. He denies any current chest pain, shortness a breath, nausea, vomiting, diarrhea or constipation. He also stated
--- NOTE | 2022-12-29 11:00 | PM.IMPN ---
Progress Note: A&P Assessment and Plan (1) Symptomatic anemia: Code(s): D64.9 - Anemia, unspecified Status: Acute Assessment and Plan: Complaints of increased fatigue, shortness of breath, and dizziness over the past 4 to 5 weeks. H/H low upon arrival at 4.7/19.3, currently 8.0/28.0 patient was given 4 units of packed red blood cells 12/27/2022 anemia labs indicated iron deficiency supplement with ferrous sulfate 325 GI consulted thank you for your help EGD and colonoscopy shows signs of old bleeding within an internal hemorrhoid Small bowel follow through taken transfuse if hemoglobin less than 7 (2) Lower GI bleeding: Code(s): K92.2 - Gastrointestinal hemorrhage, unspecified Status: Acute Assessment and Plan: complaints of blood, which patient states is from the hemorrhoids general surgery consulted thank you for your help EGD and colonoscopy found old bleeding from a hemorrhoid GI consulted thank you for your help trend H&H hold Eliquis transfuse if less than 7 hemoglobin (3) Renal failure: Code(s): N19 - Unspecified kidney failure Status: Acute Assessment and Plan: creatinine noted to be 1.9 upon arrival most likely related to hypotension, hypoperfusion, dehydration hold losartan and furosemide for now creatinine down to 1.4 today continue trend avoid nephrotoxic medications (4) Paroxysmal atrial fibrillation: Code(s): I48.0 - Paroxysmal atrial fibrillation Status: Acute Assessment and Plan: Currently sounds to be in a sinus rhythm Continue metoprolol with parameters Stable Continue telemetry (5) Chronic anticoagulation: Code(s): Z79.01 - correction (current) use of anticoagulants Status: Acute Assessment and Plan: Apixaban on hold given profound anemia. (6) Gastroesophageal reflux disease: Code(s): K21.9 - Gastro-esophageal reflux disease without esophagitis Status: Acute Assessment and Plan: History does not suggest upper GI source. Continue famotidine as needed. GI consult as above. (7) Hypertension: Code(s): I10 - Essential (primary) hypertension Status: Chronic Assessment and Plan: Restarted home medications Current BP 141/66 Continue to trend BP Adjust therapy as indicated (8) Hemorrhoids: Code(s): K64.9 - Unspecified hemorrhoids Status: Acute Assessment and Plan: Noted on the colonoscopy with old bleeding General surgery consulted Intervention planned for today Continue to trend labs and pain Time Spent With Patient Time: 45 minutes Time with patient: Greater than 35 minutes Subjective Date/time seen: 12/29/22 1100 Interval history: 12/29/22 1100 Patient stated that he feels better than he has in a really long time. He stated that he is able to shower without further problems. He denies any chest pain, shortness of breath, nausea, vomiting, diarrhea, constipation. 12/28/22 1030 patient stated that he was feeling a whole lot better today. He also stated that he was not having any shortness of breath that he had been. He denies any current chest pain, shortness a breath, nausea, vomiting, diarrhea or constipation. He also stated that he is feeling hungry. His color looks good. Reviewed his personnel monitor and decided that he did not get any longer and DC'd his telemetry. 12/27/22 1045 Patient stated he is feeling a lot better than he did yesterday. He did state that he still having a little bit of bleeding from his rectum however he thinks it is more for the hemorrhoid. He did also state that the symptoms that he had were not anything new since he has had AFib and congestive heart failure. He currently denies any chest pain, nausea, vomiting, diarrhea or constipation. He did state that he was short
[2022-12-29] MEDS: LACTATED RINGERS 1,000 ML 30 ML IV CONT (14:15)
--- NOTE | 2022-12-29 14:28 | WPDANESPN ---
Anes - Prog Note Post-Op Date/Time: 12/29/22 14:28 Cardiovascular status: normal Respiratory status: normal Airway patency: baseline Mental status: baseline Post-Op hydration status: normal Vital Signs: Last Vital Signs Temp 35.6 C L 12/29/22 08:00 Pulse 58 L 12/29/22 08:00 Resp 20 12/29/22 08:00 BP 141/66 H 12/29/22 11:59 Pulse Ox 100 12/29/22 08:00 O2 Del Method Room Air 12/28/22 23:22 Pain Score (VAS): 0 I/O: Intake & Output 12/28/22 12/29/22 12/29/22 23:59 07:59 15:59 Intake Total 360 350 Balance 360 350 Laboratory Tests 12/28/22 05:32 12/28/22 05:32 Post-procedural complaints: none Patient Feedback: Patient satisfied with anesthetic care.
--- NOTE | 2022-12-29 14:33 | WPDANESEPPF ---
Anes - Initial Pre Proc Eval Procedure: Operation Date: 12/28/22 12:30 Proposed Procedures p Esophagogastroduodenoscopy & Colonoscopy - Luis Bazzi MD Operation Date: 12/29/22 15:30 Proposed Procedures p Excisional Hemorrhoidectomy - Az Paul MD Date/Time: 12/29/22 14:33 Surgeon: Nicholas Wagner MD Pre Op Diagnosis: Anemia Patient Data Age: 57 Gender: M Height: 1.91 m Weight: 97.6 kg Last Vital Signs Temp 35.6 C L 12/29/22 08:00 Pulse 58 L 12/29/22 08:00 Resp 20 12/29/22 08:00 BP 141/66 H 12/29/22 11:59 Pulse Ox 100 12/29/22 08:00 O2 Del Method Room Air 12/28/22 23:22 Allergies Allergy/AdvReac Type Severity Reaction Status Date / Time Penicillins Allergy Mild TOLD WAS Verified 11/08/22 13:54 ALLERGIC WHEN A CHILD--???REACTION Home Medications Medication Instructions Recorded Confirmed Type metoprolol tartrate 50 mg tablet 50 mg PO Q12HR #30 tabs 02/17/22 12/26/22 Rx buspirone 10 mg tablet 10 mg PO BID #60 tabs 08/08/22 12/26/22 Rx losartan 50 mg tablet (Cozaar) 50 mg PO DAILY #30 tabs 08/08/22 12/26/22 Rx meclizine 25 mg tablet 25 mg PO TID PRN dizziness #30 tabs 08/08/22 12/26/22 Rx amiodarone 400 mg tablet 400 mg PO DAILY #30 tabs 08/15/22 12/26/22 Rx apixaban 5 mg tablet (Eliquis) 5 mg PO BID #60 tabs 11/08/22 12/26/22 Rx furosemide 20 mg tablet 20 mg PO DAILY #30 tabs 11/09/22 12/26/22 Rx famotidine 20 mg tablet 20 mg PO QHS PRN Heartburn 12/26/22 12/26/22 History Patient hx anesthesia problems: none Family hx anesthesia problems: none Results Review: All pre-operative results and documents have been reviewed as part of the pre-operative evaluation. [facility] Past Medical History Medical History Chronic anticoagulation Gastroesophageal reflux disease Heart failure with reduced ejection fraction 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 EF 30 to 35% in February 2022, improved to 60 to 65% in December 2022. Hypertension Paroxysmal atrial fibrillation Suspected sleep apnea Apnea link in February 2022 is suspicious for pathological breathing disorder With an AHI of 20. Tachycardia induced cardiomyopathy Surgical History Surgical History History of hemorrhoidectomy Status post LASIK surgery of both eyes Family History Family History Mother Diabetes mellitus Heart disease afib - had cardioversion in august Social History Social History Social History: Surrogate decision maker: Donnell Vargas (mother) or Blanca Simons (friend). Code status: Full code. Smoking packs per day: 1 Smoking cigarettes per day: 20.0 Years smoked: 20 Smoking pack-years: 20.00 Smoking status: Former smoker Tobacco type: cigarettes Second hand tobacco smoke exposure: Yes Smoking end date: 02/05/05 Alcohol intake: current Drinks per week: 14 Substance use: current Substance use type: marijuana Other substance usage details: Few times a week. Lack of Transportation: YES Lack of Food: Sometimes True Current Housing: I Have Housing Concerned About Future Housing: YES Difficulty Paying Gas/Electric Bills: YES Difficulty Paying for Meds: No Currently Unemployed: No Education: Associate Degree Difficulty w/ Childcare or Family Care: No Living arrangements: alone Additional living arrangements comments: Rents a home in [place]. 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 Spiritual care concerns: No Agree to blood products: Yes Anes - Eval Final PreProcedure Day of Procedure 12/29/22 14:33 Patient weight: overweight Heart: regular rate and rhythm Lungs: clear to auscultation Airway: Mallampati scale class III Neurological: a
--- NOTE | 2022-12-29 14:42 | WPDHPUPDATE1 ---
History and Physical Update Update Date/Time: 12/29/22 14:42 History and Physical has been reviewed, including an updated exam of the patient. There are NO changes in the patient's condition. Risks, benefits, and alternatives have been discussed and questions answered. Patient agrees to proceed with procedure.
[2022-12-29] MEDS: ceFAZolin 2 GM/D5W 50 ML 2 GM/50 ML BAG IVPB (15:13)
[2022-12-29] MEDS: BUPivacaine HCL 0.5% 10 ML AMP 30 ML INFILTRATE (15:55)
[2022-12-29] MEDS: LIDOCAINE HCL 2% GEL UROJET 10 ML PKG MUCOUS MEM (16:43)
[2022-12-29] MEDS: GELATIN SPONGE SZ 100 1 EACH TOPICAL (16:44)
--- NOTE | 2022-12-29 17:08 | W.PM.PROC2 ---
Procedure Note - Detailed Date of Procedure 12/29/22 Pre-op Diagnosis Anemia secondary to bleeding internal hemorrhoids Post-op Diagnosis Same Procedure Performed Excisional hemorrhoidectomy x2 and banding of internal hemorrhoid x1 Surgeon Az Paul MD [employer] [place], [employer] Anesthesia General Indications Patient is a 57-year-old gentleman who was on Eliquis for AFib and has been having bleeding per rectum causing him to be profoundly anemic when he was admitted to the hospital with a hemoglobin around 5. He was given blood transfusions to get him to an adequate hemoglobin and then upper and lower endoscopy was performed showing no evidence of the source of the bleeding other than large bulky internal hemorrhoids with the stigmata of recent bleeding. He presents now for formal excisional hemorrhoidectomy. Findings Patient had very large grade 3 friable bleeding hemorrhoids located posteriorly at the 6 to 7 o'clock position with the patient supine lithotomy position. He also had a smaller hemorrhoid at the anterior 12 o'clock position as well as a smaller internal hemorrhoid at the 3 o'clock position. The 2 largest internal hemorrhoids were excised and the smallest 1 at the 3 o'clock position was treated with rubber-band ligation. Description of Procedure After informed consent was obtained patient was brought to the operating room he was placed supine on the operating table and then general endotracheal anesthesia was administered. His legs were then placed in stirrups in the lithotomy position. The perianal region was then prepped and draped in usual sterile fashion. I 1st started by gently dilating the anal sphincters with lubricated anal speculum. I then proceeded to perform a come Hungarian evaluation of the anal canal and distal rectum. He had large internal hemorrhoids at the 6 to 7 o'clock position posteriorly as well as 2 smaller hemorrhoids located at 12:00 anterior position and 3:00 left lateral position. Patient had a prior hemorrhoidectomy and so I decided to excise out the 2 larger hemorrhoids and then only band the smallest hemorrhoid the 3 o'clock position to prevent any significant anal stenosis. I 1st started by excising the hemorrhoid at the 6 to 7 o'clock position. A 2 0 chromic sutures placed at the apex of the hemorrhoid. An Allis clamp was then placed on a hemorrhoid elevating it off of the internal sphincter muscle and then I used a 15 blade scalpel to incise the tissue on either side the hemorrhoid out onto the perianal skin in a natalie configuration. Metzenbaum scissors were then used to dissect superficial to the internal sphincter muscle fibers and then utilized after cautery to completely excise out the hemorrhoid tissue. It was sent to pathology labeled as posterior hemorrhoid 6 to 7 o'clock position. The wound was then closed after hemostasis near with electrocautery. The 2-0 chromic suture was run in a locking fashion out to the anal verge where I transitioned using 3-0 Vicryl suture placed in a locking fashion to approximate edges of the perianal skin. I then approached excising out the hemorrhoid at the anterior 12 o'clock position in a similar fashion. A 2 0 chromic sutures placed at the apex of the hemorrhoid and again the hemorrhoid tissue was gathered an Allis clamp and then on either side of the hemorrhoid tissue I incised the tissue with a 15 blade scalpel. This incision did not need to extend onto the perianal skin. With Metzenbaum scissors I then dissected between the hemorrhoid tissue and the internal sphincter muscle fibers and then completely excised off the the hemorrhoid and passed it off the table and sent to pathology labeled as anterior hemorrhoid 12 o'clock position. As the inguinal canal was starting to have a small amount of narrowing I have did not want to narrowed any further by excising off the 3rd hemorrhoid at the 3 o'clock position. I then chose to treated with rubber-band ligation. I
[2022-12-29] MEDS: DOCUSATE SODIUM 100 MG CAPSULE PO (21:21)
[2022-12-29] MEDS: oxyCODONE HCL (*CRX) 5 MG TAB IR PO (21:25)
[2022-12-30] VITALS (10 sets, daily range): BP systolic 108–166; BP diastolic 57–80; PULSE 55–64; RESP 17–20; TEMP 36.4–36.6; O2SAT 97–100
[2022-12-30] MEDS: oxyCODONE HCL (*CRX) 5 MG TAB IR PO ×3 (05:34→18:50)
[2022-12-30 09:30] LABS: Basophils Percent Auto 0.1 % (0.2-1.2); Hematocrit 29.8 % (42.0-52.0); Hemoglobin 8.5 g/dL (14.0-18.0); Immature Granulocyte Absolute 0.05 K/mm3 (0.00-0.031); Immature Granulocyte Percent A 0.4 % (0-0.5); Immature Platelet Fraction Pct 7.9 % (0.9-11.2); Lymphocytes Absolute Auto 0.75 K/mm3 (0.9-3.2); Lymphocytes Percent Auto 5.8 % (18.3-44.2); Mean Corpuscular HGB Conc 28.5 g/dl (32-36); Mean Platelet Volume 10.8 fl (7.4-10.4); Monocytes Percent Auto 7.6 % (2.6-8.5); Neutrophils Absolute Auto 11.2 K/mm3 (1.3-6.7); Neutrophils Percent Auto 86.1 % (45.5-73.1); Platelet Count Result 235 k/mm3 (150-375); Red Blood Count 3.87 M/mm3 (4.6-6.20); Red Cell Distribution Width 25.7 % (11.5-14.5); White Blood Count 12.9 K/mm3 (4.5-10.0)
[2022-12-30 09:47] LABS: Alanine Aminotransferase 22 U/L (6-50); Albumin Level 3.5 g/dL (3.5-5.1); Alkaline Phosphatase 57 U/L (38-126); Anion Gap 6 mmol/L (8-16); Aspartate Amino Transferase 31 U/L (17-59); Bilirubin,Total 1.3 mg/dL (0.2-1.3); Blood Urea Nitrogen 10 mg/dL (9-20); Calcium 8.5 mg/dL (8.4-10.2); Carbon Dioxide 25 mmol/L (22-30); Chloride 102 mmol/L (98-107); Estimated CRCL calculation 68 ml/min; Estimated Glomerular Filt Rate 57; Glucose 109 mg/dL (65-110); Potassium 4.1 mmol/L (3.4-5.0); Sodium 133 mmol/L (137-145)
[2022-12-30] MEDS: AMIODARONE HCL 200 MG TABLET 400 MG PO (10:23)
[2022-12-30] MEDS: LOSARTAN POTASSIUM 50 MG TABLET PO (10:24)
[2022-12-30] MEDS: busPIRone HCL 10 MG TABLET PO ×2 (10:24→16:42)
[2022-12-30] MEDS: FUROSEMIDE 20 MG TABLET PO (10:24)
[2022-12-30] MEDS: METOPROLOL TARTRATE 50 MG TAB PO ×2 (10:25→19:52)
[2022-12-30] MEDS: DOCUSATE SODIUM 100 MG CAPSULE PO ×2 (10:26→19:53)
--- NOTE | 2022-12-30 11:34 | PM.PNGS ---
Progress Note: A&P Assessment and Plan (1) Rectal bleeding: Code(s): K62.5 - Hemorrhage of anus and rectum Status: Acute Assessment and Plan: s/p hemorrhoidectomy, doing well, no further bleeding noted, ADAT, ok to restart Eliquis tomorrow, ok to dc home from surgical standpoint if gerry diet and no issues Subjective Subjective Date/Time Seen: 12/30/22 11:34 feels good, pain well controlled, no obvious bleeding postop Review of Systems Review of Systems: All systems reviewed & are unremarkable except as noted in HPI and below Exam Const: General: cooperative, comfortable and no acute distress GI: Inspection: normal to inspection and non-distended GI Palp: No abdominal tenderness, Yes Soft to palpation and No Tenderness to palpation present (GI) Objective Data Vital Signs Vital Signs: Vital Signs - 24 hr 12/29/22 11:59 12/29/22 11:59 12/29/22 14:20 Temperature Pulse Rate 57 L Respiratory Rate 18 Blood Pressure 155/66 H 141/66 H 155/71 H Pulse Oximetry 100 Oxygen Delivery Room Air Oxygen Flow Rate 12/29/22 16:53 12/29/22 17:05 12/29/22 17:10 Temperature 36.1 C L Pulse Rate 68 55 L Respiratory Rate 20 16 Blood Pressure 123/75 158/78 H Pulse Oximetry 100 100 Oxygen Delivery Simple Face Mask Simple Face Mask Room Air Oxygen Flow Rate 6 6 12/29/22 17:20 12/29/22 17:25 12/29/22 20:00 Temperature Pulse Rate 61 61 Respiratory Rate 14 Blood Pressure 151/87 H 114/60 Pulse Oximetry 97 99 99 Oxygen Delivery Room Air Room Air Oxygen Flow Rate 12/29/22 20:20 12/29/22 20:22 12/29/22 21:21 Temperature 36.6 C Pulse Rate 56 L 57 L 60 Respiratory Rate 20 Blood Pressure 125/59 L 138/60 Pulse Oximetry 98 99 Oxygen Delivery Oxygen Flow Rate 12/30/22 05:10 12/30/22 07:54 12/30/22 10:23 Temperature 36.4 C Pulse Rate 60 60 Respiratory Rate 18 Blood Pressure 160/73 H Pulse Oximetry 98 Oxygen Delivery Room Air Oxygen Flow Rate 12/30/22 10:25 12/30/22 08:00 12/30/22 11:22 Temperature 36.4 C L Pulse Rate 60 60 Respiratory Rate 20 Blood Pressure 166/74 H 163/68 H Pulse Oximetry 100 Oxygen Delivery Oxygen Flow Rate 12/30/22 11:22 Temperature Pulse Rate Respiratory Rate Blood Pressure 142/80 H Pulse Oximetry Oxygen Delivery Oxygen Flow Rate Intake/Output Intake/Output: Intake & Output 12/27/22 12/28/22 12/29/22 12/30/22 23:59 23:59 23:59 23:59 Intake Total 830 760 885 790 Balance 830 760 885 790 Meds/Results Medications: Active Medications Generic Name Dose Route Start Last Admin Trade Name Freq PRN Reason Stop Dose Admin Acetaminophen 650 mg 12/26/22 21:43 12/29/22 00:34 Acetaminophen 325 Mg Tablet PO 650 mg Q6H PRN Administration Mild Pain (1-3) or Fever Amiodarone HCl 400 mg 12/29/22 09:00 12/30/22 10:23 Amiodarone Hcl 200 Mg Tablet PO 400 mg DAILY KACY Administration Apixaban 5 mg 12/31/22 09:00 Apixaban 5 Mg Tablet PO Q12HR KACY Buspirone HCl 10 mg 12/27/22 17:00 12/30/22 10:24 Buspirone Hcl 10 Mg Tablet PO 10 mg BID KACY Administration Docusate Sodium 100 mg 12/29/22 21:00 12/30/22 10:26 Docusate Sodium 100 Mg Capsule PO 100 mg Q12HR KACY Administration Famotidine 20 mg 12/27/22 15:13 Famotidine 20 Mg Tablet PO QHS PRN Heartburn Furosemide 20 mg 12/29/22 09:00 12/30/22 10:24 Furosemide 20 Mg Tablet PO 20 mg DAILY KACY Administration Hydromorphone HCl 1 mg 12/29/22 17:27 Hydromorphone Hcl Inj (*Crx) 1 Mg/Ml Syr IV PUSH Q3H PRN Pain Rated 7-10 Acetaminophen 1,000 mg in 100 mls @ 400 mls/hr 12/29/22 18:00 12/30/22 05:34 Ofirmev 1,000 Mg Ivpb IVPB 12/30/22 17:59 400 mls/hr Q6H KACY Administration Losartan Potassium 50 mg 12/29/22 09:00 12/30/22 10:24 Losartan Potassium 50 Mg Tablet PO 50 mg DAILY KACY Administration Meclizine HCl 25 mg 03
[2022-12-30 11:50] LABS: Hypochromasia 1+ (NORMAL); Platelet Estimate Adequate (Adequate)
[2022-12-30 11:51] LABS: Anisocytosis 1+ (NORMAL); Ovalocytes 1+ (NORMAL); Poikilocytosis 1+ (NORMAL); Schistocytes Rare (NORMAL)
--- NOTE | 2022-12-30 12:15 | P.PNIM_ITS ---
Progress Note: A&P Assessment and Plan (1) Hemorrhoids: Code(s): K64.9 - Unspecified hemorrhoids Status: Acute Assessment and Plan: * postop day [address] Paul * General surgery consulted * pain medications on board, continue trend pain and adjust medications as appropriate * labs stable today (2) Symptomatic anemia: Code(s): D64.9 - Anemia, unspecified Status: Acute Assessment and Plan: * Complaints of increased fatigue, shortness of breath, and dizziness over the past 4 to 5 weeks. * H/H low upon arrival at 4.7/19.3, currently 8.5/29.8 * patient was given 4 units of packed red blood cells 12/27/2022 * anemia labs indicated iron deficiency * supplement with ferrous sulfate 325 * GI consulted thank you for your help * EGD and colonoscopy shows signs of old bleeding within an internal hemorrhoid * Small bowel follow through taken * transfuse if hemoglobin less than 7 * Resolved (3) Lower GI bleeding: Code(s): K92.2 - Gastrointestinal hemorrhage, unspecified Status: Acute Assessment and Plan: * complaints of blood, which patient states is from the hemorrhoids * general surgery consulted thank you for your help * EGD and colonoscopy found old bleeding from a hemorrhoid * GI consulted thank you for your help * trend H&H * hold Eliquis * transfuse if less than 7 hemoglobin * resolved (4) Renal failure: Code(s): N19 - Unspecified kidney failure Status: Acute Assessment and Plan: * creatinine noted to be 1.9 upon arrival * most likely related to hypotension, hypoperfusion, dehydration * hold losartan and furosemide for now * creatinine down to 1.3 today * continue trend * avoid nephrotoxic medications (5) Paroxysmal atrial fibrillation: Code(s): I48.0 - Paroxysmal atrial fibrillation Status: Acute Assessment and Plan: * Currently sounds to be in a sinus rhythm * Continue metoprolol with parameters * Stable * no arrhythmias noted (6) Chronic anticoagulation: Code(s): Z79.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 Continue famotidine as needed. GI consult as above. (8) Hypertension: Code(s): I10 - Essential (primary) hypertension Status: Chronic Assessment and Plan: Restarted home medications Current BP 142/80 Continue to trend BP Adjust therapy as indicated Time Spent With Patient Time: 36 minutes Time with patient: Greater than 35 minutes Subjective Date/time seen: 12/30/22 12:15 Interval history: 12/30/22 1215 Patient was lying in bed. Patient stated that he is having pretty severe pain and rated 10/10. He also stated that he had a worse night of his life and was unable to get the pain under control. He was very Flush and just seemed very uncomfortable. He is more concerned about having to have a bowel movement and the pain. Spoke with a nurse and asked the nurse to give him IV pain medicine to help control imm
--- NOTE | 2022-12-30 12:15 | PM.IMPN ---
Progress Note: A&P Assessment and Plan (1) Hemorrhoids: Code(s): K64.9 - Unspecified hemorrhoids Status: Acute Assessment and Plan: postop day [address] Paul General surgery consulted pain medications on board, continue trend pain and adjust medications as appropriate labs stable today (2) Symptomatic anemia: Code(s): D64.9 - Anemia, unspecified Status: Acute Assessment and Plan: Complaints of increased fatigue, shortness of breath, and dizziness over the past 4 to 5 weeks. H/H low upon arrival at 4.7/19.3, currently 8.5/29.8 patient was given 4 units of packed red blood cells 12/27/2022 anemia labs indicated iron deficiency supplement with ferrous sulfate 325 GI consulted thank you for your help EGD and colonoscopy shows signs of old bleeding within an internal hemorrhoid Small bowel follow through taken transfuse if hemoglobin less than 7 Resolved (3) Lower GI bleeding: Code(s): K92.2 - Gastrointestinal hemorrhage, unspecified Status: Acute Assessment and Plan: complaints of blood, which patient states is from the hemorrhoids general surgery consulted thank you for your help EGD and colonoscopy found old bleeding from a hemorrhoid GI consulted thank you for your help trend H&H hold Eliquis transfuse if less than 7 hemoglobin resolved (4) Renal failure: Code(s): N19 - Unspecified kidney failure Status: Acute Assessment and Plan: creatinine noted to be 1.9 upon arrival most likely related to hypotension, hypoperfusion, dehydration hold losartan and furosemide for now creatinine down to 1.3 today continue trend avoid nephrotoxic medications (5) Paroxysmal atrial fibrillation: Code(s): I48.0 - Paroxysmal atrial fibrillation Status: Acute Assessment and Plan: Currently sounds to be in a sinus rhythm Continue metoprolol with parameters Stable no arrhythmias noted (6) Chronic anticoagulation: Code(s): Z79.01 - prison (current) use of anticoagulants Status: Acute Assessment and Plan: Apixaban restarted per General surgery (7) Gastroesophageal reflux disease: Code(s): K21.9 - Gastro-esophageal reflux disease without esophagitis Status: Acute Assessment and Plan: History does not suggest upper GI source. Continue famotidine as needed. GI consult as above. (8) Hypertension: Code(s): I10 - Essential (primary) hypertension Status: Chronic Assessment and Plan: Restarted home medications Current BP 142/80 Continue to trend BP Adjust therapy as indicated Time Spent With Patient Time: 36 minutes Time with patient: Greater than 35 minutes Subjective Date/time seen: 12/30/22 12:15 Interval history: 12/30/22 1215 Patient was lying in bed. Patient stated that he is having pretty severe pain and rated 10/10. He also stated that he had a worse night of his life and was unable to get the pain under control. He was very Flush and just seemed very uncomfortable. He is more concerned about having to have a bowel movement and the pain. Spoke with a nurse and asked the nurse to give him IV pain medicine to help control immediate pain and then follow-up with oral pain medicine. H&H has remained stable. He denies any chest pain, shortness a breath, nausea, vomiting, diarrhea or constipation. talked to the patient and would feel it is best to get his pain under control prior to sending him home. Will re-evaluate tomorrow. 12/29/22 1100 Patient stated that he feels better than he has in a really long time. He stated that he is able to shower without further problems. He denies any chest pain, shortness of breath, nausea, vomiting, diarrhea, constipation. 12/28/22 1030 patient stated that he was feeling a w
[2022-12-30] MEDS: HYDROmorphone HCL INJ (*CRX) 1 MG/ML SYR IV PUSH (12:27)
[2022-12-31] MEDS: oxyCODONE HCL (*CRX) 5 MG TAB IR PO ×3 (03:48→17:22)
[2022-12-31 03:51] VITALS: BP 150/54; PULSE 58; RESP 18; TEMP 36.8; O2SAT 97
[2022-12-31 06:06] LABS: Basophils Percent Auto 0.3 % (0.2-1.2); Eosinophils Absolute Auto 0.1 K/mm3 (0-0.3); Eosinophils Percent Auto 1.1 % (0-4.4); Hematocrit 29.7 % (42.0-52.0); Hemoglobin 8.4 g/dL (14.0-18.0); Immature Granulocyte Absolute 0.04 K/mm3 (0.00-0.031); Immature Granulocyte Percent A 0.4 % (0-0.5); Immature Platelet Fraction Pct 7.4 % (0.9-11.2); Lymphocytes Percent Auto 15.5 % (18.3-44.2); Mean Corpuscular HGB Conc 28.3 g/dl (32-36); Mean Corpuscular Hemoglobin 22.2 pg (26-34); Mean Corpuscular Volume 78.6 fl (80-100); Mean Platelet Volume 10.6 fl (7.4-10.4); Monocytes Absolute Auto 1.1 K/mm3 (0.1-0.6); Monocytes Percent Auto 12.4 % (2.6-8.5); Neutrophils Absolute Auto 6.3 K/mm3 (1.3-6.7); Neutrophils Percent Auto 70.3 % (45.5-73.1); Platelet Count Result 220 k/mm3 (150-375); Red Blood Count 3.78 M/mm3 (4.6-6.20); Red Cell Distribution Width 25.6 % (11.5-14.5)
[2022-12-31 06:15] LABS: Alanine Aminotransferase 18 U/L (6-50); Albumin Level 3.3 g/dL (3.5-5.1); Alkaline Phosphatase 56 U/L (38-126); Anion Gap 5 mmol/L (8-16); Aspartate Amino Transferase 23 U/L (17-59); Bilirubin,Total 0.9 mg/dL (0.2-1.3); Blood Urea Nitrogen 10 mg/dL (9-20); Calcium 8.3 mg/dL (8.4-10.2); Carbon Dioxide 27 mmol/L (22-30); Chloride 107 mmol/L (98-107); Estimated CRCL calculation 68 ml/min; Estimated Glomerular Filt Rate 57; Glucose 104 mg/dL (65-110); Sodium 139 mmol/L (137-145)
[2022-12-31 08:46] LABS: Hypochromasia 1+ (NORMAL); Platelet Estimate Adequate (Adequate)
[2022-12-31 08:47] LABS: Anisocytosis 2+ (NORMAL); Microcytosis 1+ (NORMAL); Ovalocytes 1+ (NORMAL); Schistocytes None Seen (NORMAL)
[2022-12-31] MEDS: LOSARTAN POTASSIUM 50 MG TABLET PO (08:50)
[2022-12-31] MEDS: DOCUSATE SODIUM 100 MG CAPSULE PO (08:50)
[2022-12-31] MEDS: FUROSEMIDE 20 MG TABLET PO (08:50)
[2022-12-31 08:51] VITALS: PULSE 56
[2022-12-31] MEDS: METOPROLOL TARTRATE 50 MG TAB PO (08:51)
[2022-12-31] MEDS: AMIODARONE HCL 200 MG TABLET 400 MG PO (08:51)
[2022-12-31] MEDS: busPIRone HCL 10 MG TABLET PO ×2 (08:51→16:20)
[2022-12-31 09:00] VITALS: BP 142/65; PULSE 56; O2SAT 98
--- NOTE | 2022-12-31 09:11 | WPDANESPN ---
Anes - Prog Note Post-Op Date/Time: 12/31/22 09:11 Cardiovascular status: normal Respiratory status: normal Airway patency: baseline Mental status: baseline Post-Op hydration status: normal Vital Signs: Last Vital Signs Temp 98.2 F 12/31/22 03:51 Pulse 56 L 12/31/22 08:51 Resp 18 12/31/22 03:51 BP 150/54 H 12/31/22 03:51 Pulse Ox 97 12/31/22 03:51 O2 Del Method Room Air 12/30/22 20:00 O2 Flow Rate 6 12/29/22 17:05 Pain Score (VAS): 3 I/O: Intake & Output 12/30/22 12/31/22 12/31/22 23:59 07:59 15:59 Intake Total 240 300 Balance 240 300 Laboratory Tests 12/31/22 05:37 12/31/22 05:37 12/30/22 12/30/22 12/31/22 09:06 09:06 05:37 WBC 12.9 H 9.0 RBC 3.87 L 3.78 L Hgb 8.5 L 8.4 L Hct 29.8 L 29.7 L MCV 77.0 L 78.6 L MCH 22.0 L 22.2 L MCHC 28.5 L 28.3 L RDW 25.7 H 25.6 H Plt Count 235 220 MPV 10.8 H 10.6 H Immature Gran % (Auto) 0.4 0.4 Neut % (Auto) 86.1 H 70.3 Lymph % (Auto) 5.8 L 15.5 L Hall % (Auto) 7.6 12.4 H Eos % (Auto) 0.0 1.1 Baso % (Auto) 0.1 L 0.3 Lymph # (Auto) 0.75 L 1.40 Hall # (Auto) 1.0 H 1.1 H Eos # (Auto) 0.0 0.1 Baso # (Auto) 0.0 0.0 Abs Immat Gran (auto) 0.05 H 0.04 H Absolute Neuts (auto) 11.2 H 6.3 Absolute Nucleated RBC 0.0 0.0 Nucleated RBC % 0.0 0.0 Platelet Estimate Adequate Adequate % Immature Plt Fraction 7.9 7.4 Hypochromasia 1+ 1+ Poikilocytosis 1+ Anisocytosis 1+ 2+ Microcytosis 1+ Ovalocytes 1+ 1+ Schistocytes Rare None seen Sodium 133 L Potassium 4.1 Chloride 102 Carbon Dioxide 25 Anion Gap 6 L BUN 10 Creatinine 1.30 Estim Creat Clear Calc 68 Estimated GFR 57 L Glucose 109 Calcium 8.5 Magnesium 2.0 Total Bilirubin 1.3 AST 31 ALT 22 Alkaline Phosphatase 57 Total Protein 6.0 L Albumin 3.5 12/31/22 05:37 WBC RBC Hgb Hct MCV MCH MCHC RDW Plt Count MPV Immature Gran % (Auto) Neut % (Auto) Lymph % (Auto) Hall % (Auto) Eos % (Auto) Baso % (Auto) Lymph # (Auto) Hall # (Auto) Eos # (Auto) Baso # (Auto) Abs Immat Gran (auto) Absolute Neuts (auto) Absolute Nucleated RBC Nucleated RBC % Platelet Estimate % Immature Plt Fraction Hypochromasia Poikilocytosis Anisocytosis Microcytosis Ovalocytes Schistocytes Sodium 139 Potassium 4.0 Chloride 107 Carbon Dioxide 27 Anion Gap 5 L BUN 10 Creatinine 1.30 Estim Creat Clear Calc 68 Estimated GFR 57 L Glucose 104 Calcium 8.3 L Magnesium 2.0 Total Bilirubin 0.9 AST 23 ALT 18 Alkaline Phosphatase 56 Total Protein 6.0 L Albumin 3.3 L Post-procedural complaints: none Patient Feedback: Patient satisfied with anesthetic care.
--- NOTE | 2022-12-31 10:23 | PM.PNGS ---
Progress Note: A&P Assessment and Plan (1) Rectal bleeding: Code(s): K62.5 - Hemorrhage of anus and rectum Status: Acute Assessment and Plan: s/p hemorrhoidectomy, no further bleeding, H/H stable, ok to dc home from surgical standpoint c f/u Dr. Paul 2 wks Subjective Subjective Date/Time Seen: 12/31/22 10:23 feels good, no issues, no bleeding, no BM yet Review of Systems Review of Systems: All systems reviewed & are unremarkable except as noted in HPI and below Exam Const: General: cooperative, comfortable and no acute distress Resp: Auscultation: clear to auscultation bilaterally Cardio: Rate: regular rate Rhythm: regular rhythm GI: Inspection: normal to inspection and non-distended GI Palp: No abdominal tenderness, Yes Soft to palpation, No Tenderness to palpation present (GI), No Guarding due to palpation present (GI) and No Rigid due to palpation Objective Data Vital Signs Vital Signs: Vital Signs - 24 hr 12/30/22 10:25 12/30/22 11:22 12/30/22 11:22 Temperature Pulse Rate 60 Respiratory Rate Blood Pressure 163/68 H 142/80 H Pulse Oximetry Oxygen Delivery 12/30/22 14:00 12/30/22 19:46 12/30/22 19:56 Temperature 36.6 C 36.5 C 36.5 C Pulse Rate 61 55 L 55 L Respiratory Rate 20 17 17 Blood Pressure 108/57 L 155/69 H 155/69 H Pulse Oximetry 97 99 99 Oxygen Delivery 12/30/22 19:52 12/30/22 19:56 12/30/22 19:57 Temperature Pulse Rate 64 Respiratory Rate Blood Pressure 146/75 H 138/70 Pulse Oximetry Oxygen Delivery 12/30/22 20:00 12/31/22 03:51 12/31/22 08:51 Temperature 36.8 C Pulse Rate 58 L 56 L Respiratory Rate 18 Blood Pressure 150/54 H Pulse Oximetry 97 Oxygen Delivery Room Air 12/31/22 08:51 Temperature Pulse Rate 56 L Respiratory Rate Blood Pressure Pulse Oximetry Oxygen Delivery Intake/Output Intake/Output: Intake & Output 12/28/22 12/29/22 12/30/22 12/31/22 23:59 23:59 23:59 23:59 Intake Total 147 463 0502 300 Balance 268 204 6506 300 Meds/Results Medications: Active Medications Generic Name Dose Route Start Last Admin Trade Name Freq PRN Reason Stop Dose Admin Acetaminophen 650 mg 12/26/22 21:43 12/29/22 00:34 Acetaminophen 325 Mg Tablet PO 650 mg Q6H PRN Administration Mild Pain (1-3) or Fever Amiodarone HCl 400 mg 12/29/22 09:00 12/31/22 08:51 Amiodarone Hcl 200 Mg Tablet PO 400 mg DAILY KACY Administration Apixaban 5 mg 12/31/22 09:00 Apixaban 5 Mg Tablet PO Q12HR KACY Buspirone HCl 10 mg 12/27/22 17:00 12/31/22 08:51 Buspirone Hcl 10 Mg Tablet PO 10 mg BID KACY Administration Docusate Sodium 100 mg 12/29/22 21:00 12/31/22 08:50 Docusate Sodium 100 Mg Capsule PO 100 mg Q12HR KACY Administration Famotidine 20 mg 12/27/22 15:13 Famotidine 20 Mg Tablet PO QHS PRN Heartburn Furosemide 20 mg 12/29/22 09:00 12/31/22 08:50 Furosemide 20 Mg Tablet PO 20 mg DAILY [facility] Administration Hydromorphone HCl 1 mg 12/29/22 17:27 12/30/22 12:27 Hydromorphone Hcl Inj (*Crx) 1 Mg/Ml Syr IV PUSH 1 mg Q3H PRN Administration Pain Rated 7-10 Losartan Potassium 50 mg 12/29/22 09:00 12/31/22 08:50 Losartan Potassium 50 Mg Tablet PO 50 mg DAILY [facility] Administration Meclizine HCl 25 mg 12/29/22 17:27 Meclizine Hcl 25 Mg Tablet PO TID PRN dizziness Metoprolol Tartrate 50 mg 12/28/22 21:00 12/31/22 08:51 Metoprolol Tartrate 50 Mg Tab PO 50 mg Q12HR KACY Administration Ondansetron HCl 4 mg 12/26/22 21:43 Ondansetron Inj 4 Mg/2 Ml Vial IV PUSH Q6H PRN Nausea And Vomiting Oxycodone HCl 5 mg 12/29/22 17:27 12/31/22 03:48 Oxycodone Hcl (*Crx) 5 Mg Tab Ir PO 5 mg Q4H PRN Administration Pain Rated 7-10 Simethicone 0.6 ml 12/28/22 12:19 12/28/22 12:20 Simethicone Oral Suspension 20 Mg/0.3 Ml 30 Ml Bottle PO 0.6 ml ONCE PRN
--- NOTE | 2022-12-31 11:00 | PM.DS ---
DS: Admitting Diagnosis Discharge Date 12/31/22 1100 Admitting Diagnosis GI bleed, hemorrhoidectomy DS: Discharge Diagnosis Discharge Diagnosis (1) Hemorrhoids: Code(s): K64.9 - Unspecified hemorrhoids Status: Acute Assessment and Plan: postop day [address] Paul General surgery consulted pain medications on board, continue trend pain and adjust medications as appropriate labs stable today (2) Symptomatic anemia: Code(s): D64.9 - Anemia, unspecified Status: Acute Assessment and Plan: Complaints of increased fatigue, shortness of breath, and dizziness over the past 4 to 5 weeks. H/H low upon arrival at 4.7/19.3, currently 8.4/29.7 patient was given 4 units of packed red blood cells 12/27/2022 anemia labs indicated iron deficiency supplement with ferrous sulfate 325 GI consulted thank you for your help EGD and colonoscopy shows signs of old bleeding within an internal hemorrhoid Small bowel follow through taken transfuse if hemoglobin less than 7 Resolved (3) Lower GI bleeding: Code(s): K92.2 - Gastrointestinal hemorrhage, unspecified Status: Acute Assessment and Plan: complaints of blood, which patient states is from the hemorrhoids general surgery consulted thank you for your help EGD and colonoscopy found old bleeding from a hemorrhoid GI consulted thank you for your help trend H&H hold Eliquis transfuse if less than 7 hemoglobin resolved (4) Renal failure: Code(s): N19 - Unspecified kidney failure Status: Acute Assessment and Plan: creatinine noted to be 1.9 upon arrival most likely related to hypotension, hypoperfusion, dehydration hold losartan and furosemide for now creatinine down to 1.3 today continue trend avoid nephrotoxic medications (5) Paroxysmal atrial fibrillation: Code(s): I48.0 - Paroxysmal atrial fibrillation Status: Acute Assessment and Plan: Currently sounds to be in a sinus rhythm Continue metoprolol with parameters Stable no arrhythmias noted (6) Chronic anticoagulation: Code(s): Z79.01 - custodial (current) use of anticoagulants Status: Acute Assessment and Plan: Apixaban restarted per General surgery (7) Gastroesophageal reflux disease: Code(s): K21.9 - Gastro-esophageal reflux disease without esophagitis Status: Acute Assessment and Plan: History does not suggest upper GI source. Continue famotidine as needed. GI consult as above. (8) Hypertension: Code(s): I10 - Essential (primary) hypertension Status: Chronic Assessment and Plan: Restarted home medications Current BP 142/65 Continue to trend BP Adjust therapy as indicated DS: Summary Hospital Course Hospital Course: patient is a 57-year-old male with a past medical history of cardiomyopathy, hypertension, AFib, hypertension who presented to the ED with complaints of abnormal labs. Patient stated that he went to get a stress test however he got really weak and fatigued and they sent him for blood work. At that time was noted that the patient had a low hemoglobin and he was sent to the hospital. Upon arrival to the ED patient's hemoglobin was 4.7 hematocrit was 19.3. Patient was given 4 units of packed red blood cells. GI was consulted. EGD and colonoscopy was performed and showed a hemorrhoid that had been bleeding. At that time general surgery was consulted and patient was taken to the OR for hemorrhoidectomy. Patient was also noted to have an elevated creatinine of 1.9. Patient was given fluids and create is currently 1.30. Pain is been a problem over the last day since surgery however has been more controlled today. Patient also states that he is able to do more and feels better overall. He currently denies any mónica
--- NOTE | 2022-12-31 11:00 | P.DS_ITS ---
DS: Admitting Diagnosis Discharge Date 12/31/22 1100 Admitting Diagnosis GI bleed, hemorrhoidectomy DS: Discharge Diagnosis Discharge Diagnosis (1) Hemorrhoids: Code(s): K64.9 - Unspecified hemorrhoids Status: Acute Assessment and Plan: * postop day [address] Paul * General surgery consulted * pain medications on board, continue trend pain and adjust medications as appropriate * labs stable today (2) Symptomatic anemia: Code(s): D64.9 - Anemia, unspecified Status: Acute Assessment and Plan: * Complaints of increased fatigue, shortness of breath, and dizziness over the past 4 to 5 weeks. * H/H low upon arrival at 4.7/19.3, currently 8.4/29.7 * patient was given 4 units of packed red blood cells 12/27/2022 * anemia labs indicated iron deficiency * supplement with ferrous sulfate 325 * GI consulted thank you for your help * EGD and colonoscopy shows signs of old bleeding within an internal hemorrhoid * Small bowel follow through taken * transfuse if hemoglobin less than 7 * Resolved (3) Lower GI bleeding: Code(s): K92.2 - Gastrointestinal hemorrhage, unspecified Status: Acute Assessment and Plan: * complaints of blood, which patient states is from the hemorrhoids * general surgery consulted thank you for your help * EGD and colonoscopy found old bleeding from a hemorrhoid * GI consulted thank you for your help * trend H&H * hold Eliquis * transfuse if less than 7 hemoglobin * resolved (4) Renal failure: Code(s): N19 - Unspecified kidney failure Status: Acute Assessment and Plan: * creatinine noted to be 1.9 upon arrival * most likely related to hypotension, hypoperfusion, dehydration * hold losartan and furosemide for now * creatinine down to 1.3 today * continue trend * avoid nephrotoxic medications (5) Paroxysmal atrial fibrillation: Code(s): I48.0 - Paroxysmal atrial fibrillation Status: Acute Assessment and Plan: * Currently sounds to be in a sinus rhythm * Continue metoprolol with parameters * Stable * no arrhythmias noted (6) Chronic anticoagulation: Code(s): Z79.01 - intermediate frame tender (current) use of anticoagulants Status: Acute Assessment and Plan: * Apixaban restarted per General surgery (7) Gastroesophageal reflux disease: Code(s): K21.9 - Gastro-esophageal reflux disease without esophagitis Status: Acute Assessment and Plan: History does not suggest upper GI source. Continue famotidine as needed. GI consult as above. (8) Hypertension: Code(s): I10 - Essential (primary) hypertension Status: Chronic Assessment and Plan: Restarted home medications Current BP 142/65 Continue to trend BP Adjust therapy as indicated DS: Summary Hospital Course Hospital Course: patient is a 57-year-old male with a past medical history of cardiomyopathy, hypertension, AFib, hypertension who presented to the ED with complaints of abnormal labs. Patient stated that he went to get a stress test however he got really weak and fatigued and they sent him for blood work. At that time was noted that the patient had a low hemoglobin and he was sent to the hospital. Upon arrival to the ED patient's hemoglobin was
[2022-12-31] MEDS: APIXABAN 5 MG TABLET PO (12:22)
[2022-12-31] MEDS: polyethylene glycoL 3350 17 GM POWD.PACK PO (13:16)
[2022-12-31 14:29] VITALS: BP 138/61; PULSE 59; RESP 17; TEMP 36.7; O2SAT 97
== END 2022-12-31 17:50 | disposition home or self-care (01) | DRG 226 ==
LOC: ANHED 16:30 → ANH3MED 17:48
PROVIDERS: Internal Medicine Gastroenterology; Physician Assistant; Surgery; Admitting Provider Family Medicine; Emergency Provider Emergency Medicine; PCP Family Medicine Adolescent Medicine; Visit Provider Nurse Practitioner
PROC: 0DJ08ZZ Inspection of Upper Intestinal Tract, Via Natural or Artificial Opening Endoscopic (ICD-10-PCS; CPT 43235; principal; 2022-12-28 12:30)
PROC: 06BY3ZC Excision of Hemorrhoidal Plexus, Percutaneous Approach (ICD-10-PCS; principal; 2022-12-29 15:30)
DX: K64.8 Other hemorrhoids (principal); I43 Cardiomyopathy in diseases classified elsewhere; I11.0 Hypertensive heart disease with heart failure; I50.22 Chronic systolic (congestive) heart failure; D50.9 Iron deficiency anemia, unspecified; I48.0 Paroxysmal atrial fibrillation; K21.9 Gastro-esophageal reflux disease without esophagitis; N19 Unspecified kidney failure; Z28.21 Immunization not carried out because of patient refusal; Z87.891 Personal history of nicotine dependence; Z88.0 Allergy status to penicillin; Z79.01 Long term (current) use of anticoagulants
CPT/HCPCS: 36415; 36430; 74250; 80048; 80053; 82607; 82728; 82746; 83540; 83550; 83735; 84439; 84443; 84480; 85014; 85018; 85025; 85027; 85046; 85055; 85610; 85730; 86850; 86900; 86901; 86923; 88304; 99285; A9270; C9290; G0378; G0379; J0131; J0330; J0690; J1100; J1170; J2250; J2405; J2704; J3010; J7050; J7120; P9016

== ENCOUNTER 2023-08-04 12:25 | Emergency (ER) | payer OTHER, SELFPAY ==
[2023-08-04] VITALS (19 sets, daily range): BP systolic 127–162; BP diastolic 67–103; PULSE 71–80; RESP 12–21; TEMP 36.1–36.6; O2SAT 94–100
--- NOTE | ~2023-08-04 | XR_ITS ---
EXAMINATION: XR chest 2V Exam Date/Time: 08/04/2023 15:50 CDT HISTORY: soa, HX SVT Comparison: 06/06/2022. RESULT: Lines, tubes, and devices: None. Lungs and pleura: Clear. Cardiomediastinal silhouette: Stable. Other: No acute osseous or upper abdominal finding. IMPRESSION: No acute cardiopulmonary process. Reviewed, dictated and finalized at location K.
[2023-08-04 13:26] LABS: Influenza A QL RT-PCR Negative (Negative); Influenza B QL RT-PCR Negative (Negative); RSV RNA, RT-PCR Negative (Negative); SARS-CoV-2 RNA PCR Negative (Negative)
--- NOTE | 2023-08-04 15:33 | ECG_ITS ---
Measurements Intervals [place] Rate: 72 P: 91 TN: 156 QRS: 57 QRSD: 114 T: 42 QT: 438 QTc: 481 Interpretive Statements SINUS RHYTHM WITH OCCASIONAL SUPRAVENTRICULAR PREMATURE COMPLEXES MODERATE INTRAVENTRICULAR CONDUCTION DELAY [110+ ms QRS DURATION] PROLONGED QT INTERVAL BORDERLINE ECG COMPARED TO ECG 06/06/2022 16:36:11 NO SIGNIFICANT CHANGES Electronically Signed On 08-05-2023 13:30:45 CDT by Epi Hernandez M.D.
--- NOTE | 2023-08-04 15:54 | ED.GENADULT ---
HPI - General Adult General Chief complaint: Upper Respiratory Infection Stated complaint: sob/irregular hr Time Seen by Provider: 08/04/23 15:28 History of Present Illness HPI narrative: Patient is a 58-year-old male who presents ER with reports of weakness/fatigue since an illness 9 days ago. Reports 9 days ago he came down with nausea. Denies congestion or sore throat and productive cough. He then developed nausea and vomiting as well as diarrhea. He has been feeling dehydrated and weak since then. He has exertional shortness of breath. Has history of A-fib and he is concerned that his heart rates been irregular as well. He is not currently having diarrhea or fever. Has mild nausea in the waiting room but no emesis. He is not currently nauseated. Related Data Home Medications Medication Instructions Recorded Confirmed amiodarone 200 mg tablet 200 mg PO DAILY 03/07/23 06/07/23 Allergies Allergy/AdvReac Type Severity Reaction Status Date / Time Penicillins Allergy Mild TOLD WAS Verified 06/07/23 10:11 ALLERGIC WHEN A CHILD--???REACTION Review of Systems Review of Systems: All systems reviewed & are unremarkable except as noted in HPI and below Constitutional: Constitutional: Reports chills, Reports fatigue and Reports fever(s) ENT: Reports nasal congestion and Reports sore throat Cardiovascular: Cardiovascular: Denies chest pain, Reports rapid heart rate and Denies radiating jaw, neck or arm pain Respiratory: Respiratory: Denies cough, Reports dyspnea and Denies wheezing Gastrointestinal: Gastrointestinal: Denies abdominal pain, Reports diarrhea, Reports nausea and Reports vomiting Genitourinary: Genitourinary: Reports no additional male genitourinary complaints [facility] Past Medical History Medical History Chronic anticoagulation Gastroesophageal reflux disease Heart failure with reduced ejection fraction 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 EF 30 to 35% in February 2022, improved to 60 to 65% in December 2022. Hypertension Paroxysmal atrial fibrillation Suspected sleep apnea Apnea link in February 2022 is suspicious for pathological breathing disorder With an AHI of 20. Tachycardia induced cardiomyopathy Surgical History Surgical History History of hemorrhoidectomy hemorrhoidectomy x2 and banding of internal hemorrhoids x2 on 12/29/22 Status post LASIK surgery of both eyes Family History Family History Mother Diabetes mellitus Heart disease afib - had cardioversion in august Social History Social History Social History: Surrogate decision maker: Donnell Vargas (mother) or Blanca Simons (friend). Code status: Full code. Smoking packs per day: 1 Smoking cigarettes per day: 20.0 Years smoked: 20 Smoking pack-years: 20.00 Smoking status: Former smoker Tobacco type: cigarettes Second hand tobacco smoke exposure: Yes Smoking end date: 02/05/05 Alcohol intake: current Drinks per week: 14 Substance use: current Substance use type: marijuana Other substance usage details: Few times a week. Lack of Transportation: YES Lack of Food: Sometimes True Current Housing: I Have Housing Concerned About Future Housing: YES Difficulty Paying Gas/Electric Bills: No Difficulty Paying for Meds: No Currently Unemployed: No Education: Associate Degree Difficulty w/ Childcare or Family Care: No Living arrangements: alone Additional living arrangements comments: Rents a home in [place]. 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 Spiritual care concerns: No Agree to blood products: Yes Exam Narrative: GENERAL: Well-appearing, well-jerman
[2023-08-04 15:59] LABS: Basophils Percent Auto 0.3 % (0.2-1.2); Eosinophils Percent Auto 0.1 % (0-4.4); Hematocrit 34.5 % (42.0-52.0); Hemoglobin 10.2 g/dL (14.0-18.0); Immature Granulocyte Absolute 0.05 K/mm3 (0.00-0.031); Immature Granulocyte Percent A 0.4 % (0-0.5); Lymphocytes Absolute Auto 0.97 K/mm3 (0.9-3.2); Lymphocytes Percent Auto 8.5 % (18.3-44.2); Mean Corpuscular HGB Conc 29.6 g/dl (32-36); Mean Corpuscular Hemoglobin 24.7 pg (26-34); Mean Corpuscular Volume 83.5 fl (80-100); Mean Platelet Volume 11.1 fl (7.4-10.4); Monocytes Absolute Auto 0.8 K/mm3 (0.1-0.6); Monocytes Percent Auto 7.3 % (2.6-8.5); Neutrophils Absolute Auto 9.5 K/mm3 (1.3-6.7); Neutrophils Percent Auto 83.4 % (45.5-73.1); Nucleated Red Blood Cells Perc 0.2 % (0.0-0.2); Platelet Count Result 147 k/mm3 (150-375); Red Blood Count 4.13 M/mm3 (4.6-6.20); Red Cell Distribution Width 22.7 % (11.5-14.5); White Blood Count 11.4 K/mm3 (4.5-10.0)
[2023-08-04 16:16] LABS: Alanine Aminotransferase 19 U/L (6-50); Albumin Level 3.3 g/dL (3.5-5.1); Alkaline Phosphatase 82 U/L (38-126); Anion Gap 10 mmol/L (8-16); Aspartate Amino Transferase 34 U/L (17-59); Blood Urea Nitrogen 16 mg/dL (9-20); Calcium 7.3 mg/dL (8.4-10.2); Carbon Dioxide 19 mmol/L (22-30); Chloride 103 mmol/L (98-107); Estimated Glomerular Filt Rate 52; Glucose 104 mg/dL (65-110); Potassium 2.8 mmol/L (3.4-5.0); Sodium 132 mmol/L (137-145)
[2023-08-04 16:26] LABS: Anisocytosis 3+ (NORMAL); Hypochromasia 1+ (NORMAL); Schistocytes None Seen (NORMAL)
[2023-08-04 16:27] LABS: Macrocytosis 3+ (NORMAL)
[2023-08-04] MEDS: SODIUM CHLORIDE 0.9% IV 1,000 ML 999 ML IV CONT (16:39)
[2023-08-04] MEDS: POTASSIUM CHLORIDE 20 MEQ ER TABLET 40 MEQ PO (16:40)
[2023-08-04] MEDS: CALCIUM CARBONATE (TUMS) 500 MG (200 MG ELEMENTAL) PO (16:40)
== END 2023-08-04 18:00 | disposition home or self-care (01) ==
PROVIDERS: Emergency Provider Emergency Medicine; PCP Family Medicine Adolescent Medicine
DX: E87.6 Hypokalemia (principal); R53.83 Other fatigue; E83.51 Hypocalcemia; I11.0 Hypertensive heart disease with heart failure; I50.9 Heart failure, unspecified; I48.0 Paroxysmal atrial fibrillation; Z79.01 Long term (current) use of anticoagulants; Z87.891 Personal history of nicotine dependence; Z20.822 Contact with and (suspected) exposure to COVID-19
CPT/HCPCS: 36415; 71046; 80053; 85025; 87637; 93005; 96360; 99283; A9270; J7030

== ENCOUNTER 2023-10-07 18:25 | Emergency (ER) | payer OTHER, SELFPAY ==
--- NOTE | ~2023-10-07 | XR_ITS ---
EXAMINATION: XR chest 2V Exam Date/Time: 10/07/2023 19:20 [facility] HISTORY: SOB HX AFIB Comparison: 08/04/2023. RESULT: Lines, tubes, and devices: None. Lungs and pleura: Clear. Cardiomediastinal silhouette: Stable. Other: No acute osseous or upper abdominal finding. IMPRESSION: No acute cardiopulmonary process. Reviewed, dictated and finalized at location [facility]
[2023-10-07 18:44] VITALS: BP 168/78; PULSE 87; RESP 18; TEMP 36.4; O2SAT 100
--- NOTE | 2023-10-07 18:44 | ECG_ITS ---
Measurements Intervals [place] Rate: 77 P: 75 UT: 169 QRS: 62 QRSD: 113 T: 66 QT: 414 QTc: 471 Interpretive Statements SINUS RHYTHM INTRAVENTRICULAR CONDUCTION DELAY BASELINE ARTIFACT- I, III, AVR, AVL BORDERLINE ECG COMPARED TO ECG 08/04/2023 16:42:05 PROLONGED QT INTERVAL NO LONGER PRESENT Electronically Signed On 10-08-2023 8:08:57 INTERNATIONAL LOGISTICS COORDINATOR by Jude Villatoro D.O.
[2023-10-07 19:19] LABS: Basophils Percent Auto 0.2 % (0.2-1.2); Eosinophils Percent Auto 0.2 % (0-4.4); Hematocrit 39.2 % (42.0-52.0); Immature Granulocyte Absolute 0.03 K/mm3 (0.00-0.031); Immature Granulocyte Percent A 0.2 % (0-0.5); Lymphocytes Absolute Auto 0.79 K/mm3 (0.9-3.2); Lymphocytes Percent Auto 5.8 % (18.3-44.2); Mean Corpuscular HGB Conc 30.6 g/dl (32-36); Mean Corpuscular Hemoglobin 25.4 pg (26-34); Mean Corpuscular Volume 82.9 fl (80-100); Mean Platelet Volume 11.6 fl (7.4-10.4); Monocytes Absolute Auto 0.8 K/mm3 (0.1-0.6); Monocytes Percent Auto 5.6 % (2.6-8.5); Platelet Count Result 196 k/mm3 (150-375); Red Blood Count 4.73 M/mm3 (4.6-6.20); Red Cell Distribution Width 23.6 % (11.5-14.5); White Blood Count 13.6 K/mm3 (4.5-10.0)
[2023-10-07 19:30] LABS: INR 1.1; Prothrombin Time 14.9 Seconds (11.1-14.7)
[2023-10-07 19:31] LABS: Partial Thromboplastin Time 26.9 SECONDS (22.3-36.8)
[2023-10-07 19:42] LABS: Anisocytosis 1+ (NORMAL); Ovalocytes 1+ (NORMAL); Platelet Estimate Adequate (Adequate)
[2023-10-07 19:43] LABS: Schistocytes None Seen (NORMAL)
[2023-10-07 19:45] LABS: Troponin I 0.025 ng/mL (0.000-0.034)
[2023-10-07 20:03] LABS: Lipase 447 U/L (23-300)
[2023-10-07] MEDS: SODIUM CHLORIDE 0.9% IV 2,000 ML 999 ML IV CONT (20:05)
[2023-10-07] MEDS: LOPERAMIDE HCL 2 MG CAPSULE 4 MG PO (20:07)
[2023-10-07] MEDS: ONDANSETRON INJ 4 MG/2 ML VIAL IV PUSH (20:07)
[2023-10-07 20:23] LABS: Influenza A QL RT-PCR Negative (Negative); Influenza B QL RT-PCR Negative (Negative); RSV RNA, RT-PCR Negative (Negative); SARS-CoV-2 RNA PCR Negative (Negative)
--- NOTE | 2023-10-07 20:27 | ED.GENADULT ---
HPI - General Adult General Chief complaint: Shortness of Breath/Dyspnea Stated complaint: SOB Time Seen by Provider: 10/07/23 19:07 History of Present Illness HPI narrative: This is a 58-year-old male presenting ED with flu-like symptoms. Says he has been sick for 8 days. He has had chills, shortness of breath nausea diarrhea body aches and headaches. Feel lightheaded when he stands up. Feels like his heart has been skipping a beat. Patient also feels anxious. Patient says he drinks on a daily basis. He has had withdrawal symptoms in the past although is not every time he stops drinking. He has not drank last several days to to not feeling well. Patient notes he had decreased oral intake. No chest pain abdominal pain or urinary symptoms. 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 EF 30 to 35% in February 2022, improved to 60 to 65% in December 2022. Hypertension Paroxysmal atrial fibrillation Suspected sleep apnea Apnea link in February 2022 is suspicious for pathological breathing disorder With an AHI of 20. Tachycardia induced cardiomyopathy Surgical History Surgical History History of hemorrhoidectomy hemorrhoidectomy x2 and banding of internal hemorrhoids x2 on 12/29/22 Status post LASIK surgery of both eyes Family History Family History Mother Diabetes mellitus Heart disease afib - had cardioversion in august Social History Social History Social History: Surrogate decision maker: Donnell Vargas (mother) or Blanca Simons (friend). Code status: Full code. Smoking packs per day: 1 Smoking cigarettes per day: 20.0 Years smoked: 20 Smoking pack-years: 20.00 Smoking status: Former smoker Tobacco type: cigarettes Second hand tobacco smoke exposure: Yes Smoking end date: 05/01/05 Alcohol intake: current Drinks per week: 14 Substance use: current Substance use type: marijuana Other substance usage details: Few times a week. Lack of Transportation: YES Lack of Food: Sometimes True Current Housing: I Have Housing Concerned About Future Housing: YES Difficulty Paying Gas/Electric Bills: No Difficulty Paying for Meds: No Currently Unemployed: No Education: Associate Degree Difficulty w/ Childcare or Family Care: No Living arrangements: alone Additional living arrangements comments: Rents a home in [place]. 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 Spiritual care concerns: No Agree to blood products: Yes Exam Narrative: APPEARANCE: No apparent distress. slight tremor Head: atraumatic. EYES: EOMI, NOSE: Atraumatic NECK: Trachea midline RESPIRATORY: No increased rate of breathing, CTAB CARDIOVASCULAR: RRR, No peripheral edema, ABDOMINAL: Non-distended, soft nontender no guarding rebound MUSCULOSKELETAl: No obvious deformities NEURO: Alert. Moving 4/4 extremities SKIN:: Warm, dry. Normal color PSYCHIATRIC: Normal affect Course Vital Signs Vital signs: Vital Signs Temperature 97.5 F L 10/07/23 18:44 Pulse Rate 87 10/07/23 18:44 Respiratory Rate 18 10/07/23 18:44 Blood Pressure 168/78 H 10/07/23 18:44 Pulse Oximetry 100 10/07/23 18:44 Oxygen Delivery Room Air 10/07/23 18:44 Temperature 97.5 F L 10/07/23 18:44 Pulse Rate 87 10/07/23 18:44 Respiratory Rate 18 10/07/23 18:44 Blood Pressure 1
[2023-10-07 20:29] LABS: Alanine Aminotransferase 73 U/L (6-50); Albumin Level 4.2 g/dL (3.5-5.1); Alkaline Phosphatase 184 U/L (38-126); Anion Gap 19 mmol/L (8-16); Aspartate Amino Transferase 106 U/L (17-59); Bilirubin,Total 3.7 mg/dL (0.2-1.3); Blood Urea Nitrogen 25 mg/dL (9-20); Calcium 8.7 mg/dL (8.4-10.2); Carbon Dioxide 18 mmol/L (22-30); Chloride 94 mmol/L (98-107); Estimated CRCL calculation 47 ml/min; Estimated Glomerular Filt Rate 37; Glucose 147 mg/dL (65-110); Sodium 131 mmol/L (137-145)
[2023-10-07 21:00] VITALS: BP 181/77; PULSE 100; PULSE 74; RESP 14; O2SAT 100; O2SAT 98
[2023-10-07] MEDS: LORazepam (*CRX) 1 MG TABLET PO (22:08)
[2023-10-07 23:00] VITALS: BP 149/81; PULSE 74; RESP 14; O2SAT 98
[2023-10-07 23:14] LABS: Troponin I < 0.012 ng/mL (0.000-0.034)
[2023-10-08] MEDS: chlordiazePOXIDE (*CRX) 25 MG CAPSULE PO (00:18)
== END 2023-10-08 00:42 | disposition home or self-care (01) ==
PROVIDERS: Emergency Medicine; Nurse Practitioner Family; Emergency Provider Emergency Medicine; PCP Family Medicine Adolescent Medicine
DX: B34.9 Viral infection, unspecified (principal); E86.0 Dehydration; F10.239 Alcohol dependence with withdrawal, unspecified; Z20.822 Contact with and (suspected) exposure to COVID-19; K21.9 Gastro-esophageal reflux disease without esophagitis; I11.0 Hypertensive heart disease with heart failure; I50.9 Heart failure, unspecified; I48.91 Unspecified atrial fibrillation; Z79.01 Long term (current) use of anticoagulants
CPT/HCPCS: 36415; 71046; 80053; 83690; 84484; 85025; 85610; 85730; 87637; 93005; 96361; 96374; 99284; A9270; J2405; J7030

== ENCOUNTER 2024-05-28 10:19 | Outpatient (CLI) | payer OTHER, SELFPAY ==
--- NOTE | 2024-05-28 11:30 | NEURO_ITS ---
Impression: # Complains of numbness of upper and lower extremities. Non- diabetic. # Sensory neuropathy involving lower extremities. # Normal Nerve Conduction Study in upper extremities. No Carpal Tunnel Syndrome or ulnar neuropathy. # Normal needle/EMG exam. Nerve Conduction Studies Anti Sensory Summary Table Stim Site NR Peak (ms) P-T Amp (?V) Site1 Site2 Delta-P (ms) Dist (cm) Wilson (m/s) Left Median Anti Sensory (2-3nd Digit) Wrist 2.9 45.6 Wrist 2-3nd Digit 2.9 14.0 48 Wrist 3.1 52.1 Wrist 2-3nd Digit 2.9 14.0 48 Right Median Anti Sensory (2-3nd Digit) Wrist 3.0 35.6 Wrist 2-3nd Digit 3.0 14.0 47 Wrist 3.0 16.3 Wrist 2-3nd Digit 3.0 14.0 47 Left Radial Anti Sensory (Base 1st Digit) Wrist 2.3 21.2 Wrist Base 1st Digit 2.3 0.0 Right Radial Anti Sensory (Base 1st Digit) Wrist 2.8 9.3 Wrist Base 1st Digit 2.8 0.0 Left Sup Fibular Anti Sensory (Ant Lat Mall) NO RESPONSE 14 cm NR 14 cm Ant Lat Mall 16.0 Right Sup Fibular Anti Sensory (Ant Lat Mall) NO RESPONSE 14 cm NR 14 cm Ant Lat Mall 16.0 Left Sural Anti Sensory (Lat Mall) NO RESPONSE Calf NR Calf Lat Mall 16.0 Right Sural Anti Sensory (Lat Mall) NO RESPONSE Calf NR Calf Lat Mall 16.0 Left Ulnar Anti Sensory (5th Digit) Wrist 2.6 34.4 Wrist 5th Digit 2.6 14.0 54 Right Ulnar Anti Sensory (5th Digit) Wrist 2.5 24.5 Wrist 5th Digit 2.5 14.0 56 Motor Summary Table Stim Site NR Onset (ms) O-P Amp (mV) Site1 Site2 Delta-0 (ms) Dist (cm) Wilson (m/s) Left Median Motor (Abd Poll Brev) Wrist 3.2 3.2 Elbow Wrist 6.0 32.0 53 Elbow 9.2 3.0 Right Median Motor (Abd Poll Brev) Wrist 3.4 2.5 Elbow Wrist 6.1 31.0 51 Elbow 9.5 1.2 Left Peroneal Motor (Vastus Med) Ankle 4.0 1.4 Popit Ankle 9.7 46.0 47 Popit 13.7 0.9 Right Peroneal Motor (Vastus Med) Ankle 3.8 0.9 Popit Ankle 9.6 45.0 47 Popit 13.4 0.7 Left Tibial Motor (Abd Fischer Brev) Ankle 4.5 1.0 Knee Ankle 9.5 46.0 48 Knee 14.0 1.3 Right Tibial Motor (Abd Fischer Brev) Ankle 4.3 4.9 Knee Ankle 10.1 47.0 47 Knee 14.4 3.2 Left Ulnar Motor (Abd Dig Minimi) Wrist 2.7 6.8 A Elbow Wrist 5.9 33.0 56 A Elbow 8.6 6.1 Right Ulnar Motor (Abd Dig Minimi) Wrist 2.7 6.2 A Elbow Wrist 5.8 31.0 53 A Elbow 8.5 5.7 F Wave Studies NR F-Lat (ms) L-R F-Lat (ms) Left Median (Mrkrs) (Abd Poll Brev) 31.83 0.38 Right Median (Mrkrs) (Abd Poll Brev) 31.45 0.38 Left Peroneal (Mrkrs) (EDB) 60.28 2.03 Right Peroneal (Mrkrs) (EDB) 58.25 2.03 Left Tibial (Mrkrs) (Abd Hallucis) 60.35 0.10 Right Tibial (Mrkrs) (Abd Hallucis) 60.25 0.10 Left Ulnar (Mrkrs) (Abd Dig Min) 31.06 0.25 Right Ulnar (Mrkrs) (Abd Dig Min) 31.31 0.25 EMG Side Muscle Nerve Root Ins Act Fibs Amp Dur Recrt Comment Right 1stDorInt Ulnar C8-T1 Nml Nml Nml Nml Nml Right Ext Indicis Radial (Post Int) C7-8 Nml Nml Nml Nml Nml Right Ext Digitorum Radial (Post Int) C7-8 Nml Nml Nml Nml Nml Right BrachioRad Radial C5-6 Nml Nml Nml Nml Nml Right PronatorTeres Median C6-7 Nml Nml Nml Nml Nml Right Abd Poll Yelena
== END 2024-05-28 10:20 | disposition home or self-care (01) ==
LOC: ANHNEURO 10:21
PROVIDERS: PCP Family Medicine Adolescent Medicine; Visit Provider Nurse Practitioner Family
DX: G62.9 Polyneuropathy, unspecified (principal); G56.01 Carpal tunnel syndrome, right upper limb
CPT/HCPCS: 95886; 95913

== ENCOUNTER 2024-11-25 10:29 | Outpatient (CLI) | payer OTHER, SELFPAY ==
--- OUTSIDE RECORDS SUMMARY | 2024-11-25 10:57 | XMS_ITS | Referral Summary ---
Author Organization [facility] [place] [address] [place] [address] [address] [place] [address] Care Team Providers Care Board Design Engineer Name Role Phone Buck Strickland MD Primary Care Prov ider Encounters Date Type Department Care Team Description 11/03/2024 Telephone [facility] Card[facility] [address] [place] [address] Minerva John NP 11/03/2024 10:15 AM CLINICAL COORDINATOR Ancillary Procedure [facility] [address] [place] [address] [address] [place] [address] Tachycardia induced cardiomyopathy (CMS/HCC) (HCC) 10/29/2024 3:00 PM CLINICAL COORDINATOR Office Visit [facility] [address] [place] [address] Laureen Figueredo PA Traumatic intracerebral hemorrhage with unknown loss of consciousness status, unspecified laterality, initial encounter (HCC) (Primary Dx) 10/29/2024 1:25 PM CLINICAL COORDINATOR - 10/29/2024 11:59 PM CLINICAL COORDINATOR Hospital Encounter [facility] - Imaging [address] [place] [address] Traumatic intracerebral hemorrhage with unknown loss of consciousness status, unspecified laterality, initial encounter (HCC) Discharge Disposition: Discharge to home or self care 10/24/2024 2:30 PM CLINICAL COORDINATOR Office Visit [facility] 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 TAKE 20 MINS BEFORE DINNER NIGHTLY. 10/08/19 23 Active busPIRone (BUSPAR) 10 mg tablet Take 1 tablet (10 mg total) by mouth 2 (two) times a day 10/30/19 23 Active meclizine (ANTIVERT) 12.5 mg tablet Take 1 tablet (12.5 mg total) by mouth as needed for dizziness Does not take often Active docusate sodium (COLACE) 100 mg capsule Take 1 capsule (100 mg total) by mouth 2 (two) times a day 01/01/20 23 Active losartan (COZAAR) 50 mg tablet Take 1 tablet (50 mg total) by mouth daily 30 tablet 06/13/20 24 025 Active metoprolol tartrate (LOPRESSOR) 75 mg tablet immediate release tablet Take 1 tablet (75 mg total) by mouth 2 (two) times a day 60 tablet 06/12/20 24 Active acetaminophen 500 mg capsule Take 2 capsules (1,000 mg total) by mouth every 6 (six) hours 30 tablet 06/12/20 24 Active folic acid (FOLVITE) 1 mg tablet Take 1 tablet (1 mg total) by mouth daily 30 tablet 06/13/20 24 025 Active Additional Information Patient not taking.Reported on 10/24/2024 multivitamin with folic acid 400 mcg tablet Take 1 tablet by mouth daily 30 tablet 06/13/20 24 025 Active senna (SENOKOT) 8.6 mg tabletIndications: constipation Take 1 tablet by mouth 2 (two) times a day 60 tablet 11 06/12/20 24 025 Active Additional Information Patient not taking.Reported on 10/24/2024 oxyCODONE (ROXICODONE) 5 mg immediate release tabletIndications: Pain Take 1 tablet (5 mg total) by mouth every 8 (eight) hours as needed for pain 10 tablet 06/12/20 24 Active Additional Information Patient not taking.Reported on 10/24/2024 levETIRAcetam (KEPPRA) 1,000 mg tablet Take 1 tablet (1,000 mg total) by mouth 2 (two) times a day for 6 doses 6 tablet 06/12/20 24 Active furosemide (LASIX) 20 mg tabletIndications: Tachycardia induced cardiomyopathy (CMS/HCC) (HCC) Take 1 tablet (20 mg total) by mouth daily as needed (edema) 10/24/19 25 Active amiodarone (PACERONE) 200 mg tabletIndications: Prevention of Recurrent Atrial Fibrillation Take 0.5 tablets (100 mg total) by mouth daily 10/24/19 25 025 Active sacubitriL-valsart an (ENTRESTO) 49-51 mg tabletIndications: chronic heart failure Take 1 tablet by mouth 2 (two) times a day 60 tablet 11 11/03/19 25 Active Active Problems Problem Noted Date Diagnosed Date 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 But his N/V and SERRANO are likely from his original injury or from postconcussive syndrome, repeat head CT ordered 06/[address] stable- follow up with NSGY as scheduled- SEE SDH Closed fracture of left side of occipital bone ( CMS/HCC) 06/10/2024 Assessment & Plan (06/10/2024 2:51 PM CDT): # left occipital fracture extending to mastoid -- ENT consulted for non-displaced left occipital fracture extending to mastoid. No acute interventions at this time. Planning for follow up outpatient for interval audiogram and ear check Follow-up with ENT outpatient for interval audiogram and ear check , . Traumatic intracerebral hemo rrhage with unknown loss of consciousness status, unspecified laterality, initial encounter 06/06/2024 TBI (traumatic brain injury) 06/06/2024 Assessment & Plan (06/11/2024 12:47 PM CDT): # bifrontal and left temporal hemorrhagic contusion # parafalcine subdural hematoma -- NSGY following ---- hold home aspirin 81 mg daily -- CT head with stability 06/06 -- PT/OT -- 06/07: Start Heparin DVT ppx and transferred to the Floor -- 06/08: BI c/s -- 06/11 N/V and headache overnight, repeat head CT showed stable subdural hematoma but new small hygroma- SEE HYGROMA PLAN: Keppra 500 mg q12h x 7 days (06/07-06/13) hold Aspirin until NSGY follow up, follow up in [address] Appointment Scheduling: [facility], } After hours emergency: or Alcohol use 06/06/2024 Assessment & Plan (06/06/2024 12:57 PM CDT): -- start multivitamin daily, thiamine 100 mg daily, folic acid 1 mg daily -- monitor for withdrawals Acute pain 06/06/2024 Assessment & Plan (06/06/2024 12:58 PM CDT): -- PRN tylenol and oxycodone HTN (hypertension) 06/06/2024 Assessment & Plan (06/06/2024 12:59 PM CDT): -- hold home losartan 50 mg daily -- start PRN labetalol/hydralaxzine for SBP >160 Cardiomyopathy 06/06/2024 Assessment & Plan (06/06/2024 1:00 PM CDT): -- last TTE 12/22 with LVEF 64 % -- resume home metoprolol 50 mg BID (home dose 75 mg q12h) -- hold home losartan 50 mg daily -- maintain euvolemia Paroxysmal atrial fibrillation (CMS/HCC) 024 Assessment & Plan (06/10/2024 2:51 PM CDT): -- currently normal sinus rhythm -- resume home amiodarone 200 mg daily -- resume home metoprolol 50 mg BID (home dose 75 mg q12h) -- continuous telemetry 06/10 remains in NSR 60s, telemetry discontinued Left upper lobe pulmonary nodule 06/06/2024 Assessment & Plan (06/11/2024 2:09 PM CDT): -- incidental finding from CT CAP 06/06 06/11 patient made aware of the Pulmonary Nodule, he has a PCP Dr. Strickland, but sees the [employer] -Left upper lobe nodule measuring 9 mm with adjacent scarring/atelectasis may represent sequela of infectious/inflammatory process though given background of mild emphysema, CT chest is recommended in 3-6 months for reassessment. Follow Up: outpatient Atelectasis 06/06/2024 Assessment & Plan (06/06/2024 1:02 PM CDT): -- IS, OOB when able -- SPO2 goal >92% Discharge planning issues 06/06/2024 Assessment & Plan (06/11/2024 2:11 PM CDT): 06/06 Barrier: ICU Care 06/07: Stable to floor. PT/OT evals -06/09: OT recs home, pending PT 06/10 headache N/V- repeat head CT 06/11 noted Hygroma- repeat head CT CM Intake Health Insurance Coverage: [employer] [facility] Medicaid Prescription Coverage: Yes Pharmacy: [id number] - [place], [place] - [address] [facility] [address] [facility] [id number] Primary Care Provider: Buck Strickland MD CM Intake: Immunizations Immunization Administration Dates Next Due Tdap 06/05/2024 Social History Tobacco Use Types Packs/Day Years Used Date Smoking Tobacco: Former Cigarettes Q uit: 02/14/2005 Tobacco Cessation:Counseling Given: Not Answered AUDIT-C Answer Date Recorded Q1: How often do you have a drink containing alc ohol? Monthly or less 03/14/2022 Q2: How many drinks containi ng alcohol do you have on a typical day when you are drinking? 1 or 2 03/14/2022 Q3: How often do you have si x or more drinks on one occasion? Less than monthly 03/14/2022 Personal Safety Answer Date Recorded Have you ever been in or are you currently in a harmful physical or emotional relationship or is someone making you feel afraid or unsafe? Denies 06/05/2024 Sex and Gender Information Value Date Recorded Sex Assigned at Not on file Legal Sex Male 8:21 PM CLINICAL COORDINATOR Gender Identity Not on file Sexual Orientation Not on file Last Filed Vital Signs Vital Sign Reading Time Taken Comments Blood Pressure 148/68 10/29/2024 2:37 PM CLINICAL COORDINATOR Pulse 66 10/24/2024 2:16 PM CLINICAL COORDINATOR Temperature 36.7 C (98 F) 06/12/2024 11:15 AM CDT Respiratory Rate 18 06/12/2024 11:15 AM CDT Oxygen Saturation 99% 10/29/2024 2:37 PM CLINICAL COORDINATOR Inhaled Oxygen Concentration - - Weight 93 kg (205 lb) 10/29/2024 2:37 PM CLINICAL COORDINATOR Height 190.5 cm (6' 3 ) 10/29/2024 2:37 PM CLINICAL COORDINATOR Body Mass Index 25.62 10/29/2024 2:37 PM CLINICAL COORDINATOR Plan of Treatment Not on file Procedures Procedure Name Priority Date/Time Associated Diagnosis Comments TRANSTHORACIC ECHO (TTE) COMPLETE W DOPPLER/CF WO CONTRAST Routine 11/03/2024 10:50 AM CLINICAL COORDINATOR Tachycardia induced cardiomyopathy (CMS/HCC) (HCC) CT HEAD WO CONTRAST Schedule Routine, Read Routine (OP Routine) 10/29/2024 2:23 PM CLINICAL COORDINATOR Traumatic intracerebral hemorrhage with unknown loss of consciousness status, unspecified laterality, initial encounter (HCC) POCT LIPID PANEL Routine 10/24/2024 2:20 PM CLINICAL COORDINATOR Lipid screening from Last 3 Months Results * TRANSTHORACIC ECHO (TTE) COMPLETE W DOPPLER/CF WO CONTRAST (11/03/2024 10:50 AM CLINICAL COORDINATOR) LV EF % CONS SCIMAGE Anatomical Region Laterality Modality Ultrasound 11/03/2024 10:2 3 AM CLINICAL COORDINATOR Narrative 11/03/2024 12:08 PM CLINICAL COORDINATOR [facility] Cardiology [address], [place] [address] [address], [place] [address] P:[phone] P:[phone] Echocardiographic Report Patient Name: PIPER DOUGHERTY F : 1965 Study Date: 11/03/2024 10:23:08 AM Gender: M Tech: Location: [facility] Provider: MINERVA JOHN Height(Cm): 190 BSA: 2.22 Weight(Kg): 93 Heart Rate: 55 BP: 108 / 60 Quality: Good Order Provider: MINERVA JOHN PROCEDURES: Echocardiographic Report: Transthoracic echocardiogram with complete 2D, M-Mode, and color Doppler examination. With Strain Analysis. INDICATIONS: Tachycardia induced Cardiomyopathy. MEASUREMENTS: 2D/MM Value Range Doppler Value Range EF Mod BP 44 % [ 52 - 72 ] AV Mean PG 4 mmHg EF Teich MM 53 % [ 52 - 72 ] AV Peak Wilson 1.25 m/s [ 1.00 - 1.70 ] LVIDd 2D 5.51 cm [ 4.20 - 5.80 ] AV Peak PG 6 mmHg LVIDd MM 5.33 cm [ 4.20 - 5.80 ] AV VTI 28.79 cm LVIDs 2D 4.40 cm [ 2.50 - 4.00 ] LVOT Peak Wilson 0.90 m/s [ 0.70 - 1.10 ] LVIDs MM 3.86 cm [ 2.50 - 4.00 ] LVOT VTI 18.55 cm LVPWd 2D 1.20 cm [ 0.60 - 1.00 ] MV E Peak Wilson 0.46 m/s [ 0.60 - 1.30 ] LVPWd MM 0.98 cm [ 0.60 - 1.00 ] MV A Peak Wilson 0.55 m/s [ 1.00 - 1.20 ] IVSd 2D 1.32 cm [ 0.60 - 1.00 ] MV Decel Time 329 msec [ 104 - 258 ] IVSd MM 1.44 cm [ 0.60 - 1.00 ] PV Peak Wilson 0.98 m/s [ 0.40 - 0.80 ] LA Dimension MM 3.83 cm [ 3.00 - 4.00 ] TR Peak Wilson 2.50 m/s [ 1.00 - 2.80 ] AoR Diam MM 3.14 cm [ 3.10 - 3.70 ] TR Peak PG 25 mmHg LA Volume Index 27 cc/m2 [ 16 - 34 ] RVSP 33.00 mmHg [ 10.00 - 36.00 ] ACS MM 1.73 cm [ 1.50 - 2.60 ] Lateral E` 0.06 m/s [ 0.10 - 0.15 ] E` 0.03 m/s E/E` 8 2D/MM Value Range Doppler Value Range - FINDINGS: Interpretation Site: Exam was interpreted at [facility]. Left Ventricle: Mild concentric left ventricular hypertrophy. Mild global left ventricular systolic dysfunction. There is pseudonormal diastolic dysfunction Grade II. Ejection fraction is measured at 44 %. Global Longitudinal Strain is -12 %. GLS is abnormal. Right Ventricle: Normal right ventricular size. Normal right ventricular systolic function. Left Atrium: The left atrium is normal in size. Right Atrium: The right atrium is normal in size. Atrial Septum: Normal atrial septum. Mitral Valve: Normal appearance of the mitral valve. Mild mitral valve regurgitation. There is no hemodynamically significant mitral stenosis by Doppler. Aortic Valve: Normal appearance of the aortic valve. No evidence of hemodynamically significant aortic stenosis by Doppler. Trileaflet aortic valve. No aortic regurgitation. Tricuspid Valve: Normal appearance of the tricuspid valve. Estimated peak RVSP is 30 mmHg. Trivial regurgitation in the tricuspid valve. Pulmonic Valve: Normal appearance of the pulmonic valve. Mild pulmonic regurgitation. Pericardium: Normal pericardium with no significant pericardial effusion. Aorta: Sinus of Valsalva is normal. IVC: Normal size and normal respiratory collapse consistent with normal right atrial pressure (<5 mmHg). Pulmonary Artery: Normal pulmonary artery size. CONCLUSIONS: Mild concentric left ventricular hypertrophy. Mild global left ventricular systolic dysfunction. There is pseudonormal diastolic dysfunction Grade II. Ejection fraction is measured at 44 %. Global Longitudinal Strain is -12 %. GLS is abnormal. Mild mitral valve regurgitation. Estimated peak RVSP is 30 mmHg. Trivial regurgitation in the tricuspid valve. Mild pulmonic regurgitation. Electronically Signed By: Dr. Michael Stock [facility] 11/03/2024 12:07:35 PM CLINICAL COORDINATOR Procedure Note Michael Stock MD - 11/03/2024 [facility] [address] [facility] [address] [address] [address] [address] P:[phone] P:[phone] Echocardiographic Report Patient Name: PIPER DOUGHERTY F : 1965 Study Date: 11/03/2024 10:23:08 AM Gender: M Tech: Location: [facility] Provider: MINERVA JOHN Height(Cm): 190 BSA: 2.22 Weight(Kg): 93 Heart Rate: 55 BP: 108 / 60 Quality: Good Order Provider: MINERVA JOHN PROCEDURES: Echocardiographic Report: Transthoracic echocardiogram with complete 2D, M-Mode, and color Dopplerexamination. With Strain Analysis. INDICATIONS: Tachycardia induced Cardiomyopathy. MEASUREMENTS: 2D/MM Value Range Doppler ValueRange EF Mod BP 44 % [ 52 - 72 ] AV Mean PG 4mmHg EF Teich MM 53 % [ 52 - 72 ] AV Peak Wilson 1.25m/s [ 1.00 - 1.70 ] LVIDd 2D 5.51 cm [ 4.20 - 5.80 ] AV Peak PG 6mmHg LVIDd MM 5.33 cm [ 4.20 - 5.80 ] AV VTI 28.79cm LVIDs 2D 4.40 cm [ 2.50 - 4.00 ] LVOT Peak Wilson 0.90m/s [ 0.70 - 1.10 ] LVIDs MM 3.86 cm [ 2.50 - 4.00 ] LVOT VTI 18.55cm LVPWd 2D 1.20 cm [ 0.60 - 1.00 ] MV E Peak Wilson 0.46m/s [ 0.60 - 1.30 ] LVPWd MM 0.98 cm [ 0.60 - 1.00 ] MV A Peak Wilson 0.55m/s [ 1.00 - 1.20 ] IVSd 2D 1.32 cm [ 0.60 - 1.00 ] MV Decel Time 329msec [ 104 - 258 ] IVSd MM 1.44 cm [ 0.60 - 1.00 ] PV Peak Wilson 0.98m/s [ 0.40 - 0.80 ] LA Dimension MM 3.83 cm [ 3.00 - 4.00 ] TR Peak Wilson 2.50m/s [ 1.00 - 2.80 ] AoR Diam MM 3.14 cm [ 3.10 - 3.70 ] TR Peak PG 25mmHg LA Volume Index 27 cc/m2 [ 16 - 34 ] RVSP 33.00mmHg [ 10.00 - 36.00 ] ACS MM 1.73 cm [ 1.50 - 2.60 ] Lateral E` 0.06m/s [ 0.10 - 0.15 ] E` 0.03 m/s E/E` 8 2D/MM Value Range Doppler ValueRange - FINDINGS: Interpretation Site: Exam was interpreted at [facility]. Left Ventricle: Mild concentric left ventricular hypertrophy. Mild global left ventricularsystolic dysfunction. There is pseudonormal diastolic dysfunction Grade II.Ejection fraction is measured at 44 %. Global Longitudinal Strain is -12 %. GLS is abnormal. Right Ventricle: Normal right ventricular size. Normal right ventricular systolicfunction. Left Atrium: The left atrium is normal in size. Right Atrium: The right atrium is normal in size. Atrial Septum: Normal atrial septum. Mitral Valve: Normal appearance of the mitral valve. Mild mitral valve regurgitation.There is no hemodynamically significant mitral stenosis by Doppler. Aortic Valve: Normal appearance of the aortic valve. No evidence of hemodynamicallysignificant aortic stenosis by Doppler. Trileaflet aortic valve. No aortic regurgitation. Tricuspid Valve: Normal appearance of the tricuspid valve. Estimated peak RVSP is 30 mmHg.Trivial regurgitation in the tricuspid valve. Pulmonic Valve: Normal appearance of the pulmonic valve. Mild pulmonic regurgitation. Pericardium: Normal pericardium with no significant pericardial effusion. Aorta: Sinus of Valsalva is normal. IVC: Normal size and normal respiratory collapse consistent with normal rightatrial pressure (<5 mmHg). Pulmonary Artery: Normal pulmonary artery size. CONCLUSIONS: Mild concentric left ventricular hypertrophy. Mild global left ventricularsystolic dysfunction. There is pseudonormal diastolic dysfunction Grade II.Ejection fraction is measured at 44 %. Global Longitudinal Strain is -12 %. GLS is abnormal. Mild mitral valve regurgitation. Estimated peak RVSP is 30 mmHg. Trivial regurgitation in the tricuspidvalve. Mild pulmonic regurgitation. Electronically Signed By: Dr. Michael Stock [facility] 11/03/2024 12:07:35 PM CLINICAL COORDINATOR Minerva John NP CV ECHO PROCEDURES Final Result * CT Head WO Contrast (10/29/2024 2:23 PM CLINICAL COORDINATOR) Anatomical Region Laterality Modality Head and Neck N/A Computed Tomogra phy 10/29/2024 2:41 PM CLINICAL COORDINATOR Impressions 10/29/2024 2:41 PM CLINICAL COORDINATOR No acute intracranial process. Electronically signed by: Jerardo Rosales MD, PHD Narrative 10/29/2024 2:41 PM CLINICAL COORDINATOR EXAMINATION: CT head without contrast HISTORY: Hemorrhage TECHNIQUE: CT of the head was performed with images acquired from skull base to vertex without intravenous contrast. COMPARISON: None Available. FINDINGS: There is no acute intracranial hemorrhage. Ventricles are of normal size and morphology. No mass effect or midline shift is present. The smith-white matter differentiation is normal. The visualized portions of the orbits are normal. The visualized portions of the mastoids are normal. The visualized portions of the paranasal sinuses are normal. No fractures are identified. Procedure Note Jerardo Rosales MD PhD - 10/29/2024 EXAMINATION: CT head without contrast HISTORY: Hemorrhage TECHNIQUE: CT of the head was performed with images acquired from skull base to vertex without intravenous contrast. COMPARISON: None Available. FINDINGS: There is no acute intracranial hemorrhage. Ventricles are of normal size and morphology. No mass effect or midline shift is present. The smith-white matter differentiation is normal. The visualized portions of the orbits are normal. The visualized portions of the mastoids are normal. The visualized portions of the paranasal sinuses are normal. No fractures are identified. IMPRESSION: No acute intracranial process. Electronically signed by: Jerardo Rosales MD, PHD Laureen CORTES IMG CT PROCEDURES Final Result * POCT lipid panel (10/24/2024 2:20 PM CLINICAL COORDINATOR) Cholesterol, POC 229 mg/dL HDL, POC 47 mg/dL Triglycerides, POC 168 mg/dL LDL Cholesterol POC 149 mg/dL Chol/HDL Ratio, POC 3.2 Non-HDL Cholesterol, POC 182 mg/dL Cholesterol Total, POC 229 mg/dL Capillary blood 10/24/2024 2 :20 PM CLINICAL COORDINATOR Minerva John NP POINT OF CARE TEST ORDERA BLES Final Result from Last 3 Months Insurance [facility] Advance Directives For more information, please contact: [phone] * Full Code (Latest Code Status on File) Date Activated Date Inactivated Comments 06/06/2024 4:55 AM 06/12/2024 5:12 PM Care Teams Board Design Engineer Relationship Specialty Start Date End Date Buck Strickland MD [address] [place] [address] PCP - General Family Medicine 02/15/22
--- OUTSIDE RECORDS SUMMARY | 2024-11-25 10:57 | XMS_ITS | Clinical Summary ---
Author Organization [facility] Care Team Providers Care Liquor Rectifier Name Role Phone Unavailable Primary Care Provider Unavailabl e Social History Tobacco Use Types Packs/Day Years Used Date Smoking Tobacco: Never Assessed Sex and Gender Information Value Date Recorded Sex Assigned at Not on file Legal Sex Male 2:41 PM NEWS COMMENTATOR Gender Identity Not on file Sexual Orientation Not on file Plan of Treatment Health Maintenance Due Date Last Done Comments Hepatitis C Virus (HCV) Screening 1965 TdaP Immunization 1965 Hepatitis B Immunization (1 of 3 - 19+ 3-dose series) 1985 Colonoscopy 2011 Colorectal Cancer Screening 2011 Cologuard 2016 Immunochemical Fecal Occult Blood 2016 Pneumococcal Immunization (5 0+ years) (1 of 1 - PCV) 2016 Zoster Immunization (1 of 2) 2016 PSA Discussion 2021 Influenza Immunization (#1) 2024 SARS-COV-2 Immunization ( - 2023-25 season) 2024 Respiratory Syncytial Virus (RSV) Immunization (Adult) (1 - 1-dose 75+ series) 2041 Meningococcal Immunization (ACWY) Aged Out No longer eligible based on patient's age to complete this topic Pneumococcal Immunization Combined Aged Out No longer eligible based on patient's age to complete this topic Rotavirus Immunization Aged Out No lo nger eligible based on patient's age to complete this topic
--- OUTSIDE RECORDS SUMMARY | 2024-11-25 10:57 | XMS_ITS | Clinical Summary ---
Author Organization [facility] [address] Address [address] [place] [address] Care Team Providers Care Awnings Mechanic Name Role Phone Buck Strickland MD Primary Care Prov ider Allergies Active Allergy Reactions Criticality Noted Date [...] mg total) by mouth daily 30 tablet 11 06/13/20 24 025 Active metoprolol tartrate (LOPRESSOR) [...] times a day 60 tablet 06/12/20 24 025 Active Additional Information Patient [...] 2 (two) times a day 60 tablet 11/03/19 25 Active Active Problems Problem Noted [...] PCP Dr. Strickland, but sees the E[facility]i DEVELOPMENTAL THERAPIST -Left upper lobe nodule measuring 9 mm [...] head CT CM Intake Health Insurance Coverage: [facility] Medicaid Prescription Coverage: Yes [facility] [address] [place], [place] [address] [facility] [address] [facility] [address] Primary Care Provider: Buck Strickland MD CM Intake: Encounters Date Type Department Care Team Description 11/03/2024 10:15 AM BURR PICKER Ancillary Procedure [facility] Medical [facility] Cardiology [address] [place] [phone] Tachycardia induced cardiomyopathy (CMS/HCC) (HCC) 11/03/[address] [place] [phone] Minerva John NP 10/29/2024 3:00 PM BURR PICKER Office Visit 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 [address] [place] [address] Laureen Figueredo PA from Last 3 Months Immunizations Immunization Administration Dates Next Due Tdap 06/05/2024 Medical History Medical History Date Comments Hypertension Atrial fibrillation (CMS/HCC) (HCC) CHF (congestive heart failure) (CMS/HCC) (HCC) Family History Medical History Relation Name Comments No Known Problems Father No Known Problems Mother Relation Name Status Comments Brother Alive Father Alive Mother Alive Mother's Sister Alive Social History Tobacco Use Types Packs/Day Years [...] on file Legal Sex Male 8:21 PM BURR PICKER Gender Identity Not on file Sexual Orientation Not on file Obstetrics History Last Filed Vital Signs Vital Sign Reading Time Taken Comments Blood Pressure 148/68 10/29/2024 2:37 PM BURR PICKER Pulse 66 10/24/2024 2:16 PM BURR PICKER Temperature 36.7 C (98 F) 06/12/2024 11:15 AM CDT Respiratory Rate 18 06/12/2024 11:15 AM CDT Oxygen Saturation 99% 10/29/2024 2:37 PM BURR PICKER Inhaled Oxygen Concentration - - Weight 93 kg (205 lb) 10/29/2024 2:37 PM BURR PICKER Height 190.5 cm (6' 3 ) 10/29/2024 2:37 PM BURR PICKER Body Mass Index 25.62 10/29/2024 2:37 PM BURR PICKER Plan of Treatment Health Maintenance Due Date Last Done Comments Colon Cancer Screening-Colonoscopy 1966 Depression Screening 1966 Hepatitis C Screening 1966 Prostate Cancer Screening-PSA 1966 Hepatitis B Screening 1984 Regular Well Visit/Exam 18-64 1984 Pneumococcal vaccine <65 (1 of 2 - PCV) 1985 Zoster Vaccine (1 of 2) 2016 Covid-19 Vaccine (2 - season) 2024 Influenza Vaccine (#1) 2024 DTaP/Tdap/Td Vaccine (2 - Td or Tdap) 06/05/2034 Procedures Procedure Name Priority Date/Time Associated Diagnosis Comments TRANSTHORACIC ECHO (TTE) COMPLETE W DOPPLER/CF WO CONTRAST Routine 11/03/2024 10:50 AM BURR PICKER Tachycardia induced cardiomyopathy (CMS/HCC) (HCC) CT HEAD WO CONTRAST Schedule Routine, Read Routine (OP Routine) 10/29/2024 2:23 PM BURR PICKER 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 [place] [place] [address] [id number] [facility] [address], [place] [address] P:[phone] P:[phone] Echocardiographic Report Patient Name: PIPER DOUGHERTY F : 1965 Study Date: 11/03/2024 10:23:08 AM Gender: M Tech: Location: [place] Ref Provider: MINERVA JOHN Height(Cm): 190 BSA: 2.22 [...] FINDINGS: Interpretation Site: Exam was interpreted at [facility]. Left Ventricle: Mild concentric left ventricular hypertrophy. [...] regurgitation. Electronically Signed By: Dr. Michael Stock [facility] 11/03/2024 12:07:35 PM BURR PICKER Procedure Note Michael Stock MD - 11/03/2024 [facility] Medical Group Cardiology [address] [facility] [place] [place] [address], [place] [address] [facility] [address], [place] [address] P:[phone] P:[phone] Echocardiographic Report Patient Name: PIPER DOUGHERTY F : 1965 Study Date: 11/03/2024 10:23:08 AM Gender: M Tech: Location: [facility] Provider: MINERVA JOHN Height(Cm): 190 BSA: 2.22 [...] FINDINGS: Interpretation Site: Exam was interpreted at [facility]. Left Ventricle: Mild concentric left ventricular hypertrophy. [...] regurgitation. Electronically Signed By: Dr. Michael Stock [facility] 11/03/2024 12:07:35 PM BURR PICKER Minerva John NP CV ECHO PROCEDURES Final Result * CT Head WO Contrast (10/29/2024 2:23 PM BURR PICKER) Anatomical Region Laterality Modality Head and Neck N/A Computed Tomogra phy 10/29/2024 2:41 PM BURR PICKER Impressions 10/29/2024 2:41 PM BURR PICKER No acute intracranial process. Electronically signed by: Jerardo Rosales MD, PHD Narrative 10/29/2024 2:41 PM BURR PICKER EXAMINATION: CT head without contrast HISTORY: Hemorrhage [...] * POCT lipid panel (10/24/2024 2:20 PM BURR PICKER) Cholesterol, POC 229 mg/dL HDL, POC 47 mg/dL Triglycerides, POC 168 mg/dL LDL Cholesterol POC 149 mg/dL Chol/HDL Ratio, POC 3.2 Non-HDL Cholesterol, POC 182 mg/dL Cholesterol Total, POC 229 mg/dL Capillary blood 10/24/2024 2 :20 PM BURR PICKER Minerva John NP POINT OF CARE TEST ORDERA BLES Final Result from Last 3 Months Insurance [id number] [facility] Advance Directives For more information, please contact: [phone] * Full Code (Latest Code Status on File) Date Activated Date Inactivated Comments 06/06/2024 4:55 AM 06/12/2024 5:12 PM Care Teams Awnings Mechanic Relationship Specialty Start Date End Date Buck Strickland MD [address] [place] [address] PCP - General Family Medicine 02/15/22
[2024-11-25 11:28] LABS: Hematocrit 44.4 % (42.0-52.0); Hemoglobin 13.5 g/dL (14.0-18.0); Mean Corpuscular HGB Conc 30.4 g/dl (32-36); Mean Corpuscular Hemoglobin 26.7 pg (26-34); Mean Corpuscular Volume 87.9 fl (80-100); Mean Platelet Volume 10.4 fl (7.4-10.4); Platelet Count Result 315 k/mm3 (150-375); Red Blood Count 5.05 M/mm3 (4.6-6.20); Red Cell Distribution Width 17.2 % (11.5-14.5); White Blood Count 8.8 K/mm3 (4.5-10.0)
[2024-11-25 11:41] LABS: Alanine Aminotransferase 17 U/L (6-50); Albumin Level 4.6 g/dL (3.5-5.1); Alkaline Phosphatase 56 U/L (38-126); Anion Gap 11 mmol/L (4-12); Aspartate Amino Transferase 22 U/L (17-59); Bilirubin,Total 0.7 mg/dL (0.2-1.3); Blood Urea Nitrogen 28 mg/dL (9-20); Calcium 9.3 mg/dL (8.4-10.2); Carbon Dioxide 22 mmol/L (22-30); Chloride 104 mmol/L (98-107); Cholesterol 231 mg/dL (0-200); Estimated Glomerular Filt Rate 58; Glucose 98 mg/dL (65-110); HDL Direct 40 mg/dL; Potassium 4.6 mmol/L (3.4-5.0); Sodium 137 mmol/L (137-145); Triglycerides 113 mg/dL (<150)
[2024-11-25 11:47] LABS: Iron 46 ug/dL (49-181)
[2024-11-25 11:52] LABS: LDL Cholesterol Direct 147 mg/dL
[2024-11-25 11:57] LABS: Percent Iron Saturation 10 % (20-50)
[2024-11-25 12:23] LABS: Add Urine Microscopic? NO; Appearance Urine Clear (Clear); Bilirubin Urine Negative (Negative); Blood Urine Negative (Negative); Color Urine Yellow (Yellow); Glucose Urine UA Negative (Negative); Ketones Urine Negative (Negative); Leukocyte Esterase Ur Negative LEU/UL (Negative); Nitrate Urine Negative (Negative); Protein Urine Negative (Negative); Specific Grav Ur 1.023 (1.001-1.035); Urobilinogen Urine 0.2 mg/dL (<2.0)
[2024-11-25 13:09] LABS: Creatinine Urine 193.6 mg/dL
[2024-11-25 13:21] LABS: Total Protein Urine Random < 5 mg/dL; Ur Ttl Prot Creatinine Ratio < 0.03 mg/mg (0-0.20)
[2024-11-27 11:49] LABS: Kappa\\Lambda Light Chains 2.08 (0.26-1.65); Lambda Light Chain 25.3 mg/L (5.7-26.3)
[2024-11-27 19:39] LABS: Immunofixation, Serum Normal pattern.
== END 2024-11-25 10:30 | disposition home or self-care (01) ==
PROVIDERS: PCP Family Medicine Adolescent Medicine; Referring Provider Nurse Practitioner Adult Health; Visit Provider Nurse Practitioner Family
DX: D50.9 Iron deficiency anemia, unspecified (principal); I10 Essential (primary) hypertension; K62.5 Hemorrhage of anus and rectum; Z13.220 Encounter for screening for lipoid disorders; I42.9 Cardiomyopathy, unspecified
CPT/HCPCS: 36415; 80053; 80061; 81003; 82570; 83540; 83550; 83883; 84156; 85027; 86334

== ENCOUNTER 2025-01-30 15:27 | Outpatient (CLI) | payer OTHER, SELFPAY ==
--- OUTSIDE RECORDS SUMMARY | 2025-01-30 15:30 | XMS_ITS | Referral Summary ---
Author Organization [place] [address] [place] [phone] Care Team Providers Care C Application Developer Name Role Phone Buck Strickland MD Primary Care Prov ider Encounters Date Type Department Care Team Description 11/28/2024 Results Follow-Up [facility] Cardiology [address] [place] [address] [place] [phone] Minerva John NP 11/25/2024 Orders Only [place] [address] [place] [phone] Minerva John NP 11/25/2024 11:15 AM LEISURE STUDIES PROFESSOR Procedure visit [place] [address] [place] [phone] Cardiomyopathy, unspecified type (HCC) 11/03/2024 Telephone [place] [address] [place] [phone] Minerva John NP 11/03/2024 10:15 AM LEISURE STUDIES PROFESSOR Ancillary Procedure [facility] Cardiology [address] [place] [address] [address] [place] [phone] Tachycardia induced cardiomyopathy (HCC) from Last 3 Months Allergies Active Allergy Reactions Criticality Noted Date Comments Penicillins Unknown 06/05/2024 Medications famotidine (PEPCID) 20 mg tablet TAKE 1 TABLET BY MOUTH EVERY DAY AT BEDTIME . TAKE 20 MINS BEFORE DINNER NIGHTLY. 10/08/19 Active busPIRone (BUSPAR) 10 mg tablet Take 1 tablet (10 mg total) by mouth 2 (two) times a day 10/30/19 Active meclizine (ANTIVERT) 12.5 mg tablet Take 1 tablet (12.5 mg total) by mouth as needed for dizziness Does not take often Active docusate sodium (COLACE) 100 mg capsule Take 1 capsule (100 mg total) by mouth 2 (two) times a day 01/01/20 Active losartan (COZAAR) 50 mg tablet Take [...] (LASIX) 20 mg tabletIndications: Tachycardia induced cardiomyopathy (HCC) Take 1 tablet (20 mg total) [...] fracture of left side of occipital bone 0 06/10/2024 Assessment & Plan (06/10/2024 2:51 PM [...] daily -- maintain euvolemia Paroxysmal atrial fibrillation 06/06/2024 Assessment & Plan (06/10/2024 2:51 PM CDT): [...] PCP Dr. Strickland, but sees the Eboni DIRECTOR CHILD ABUSE THERAPY -Left upper lobe nodule measuring 9 mm [...] head CT CM Intake Health Insurance Coverage: [employer] [facility] Medicaid Prescription Coverage: Yes Pharmacy: [facility] [address] [place] [address] [place] [phone] Primary Care Provider: Buck Strickland MD CM [...] on file Legal Sex Male 8:21 PM LEISURE STUDIES PROFESSOR Gender Identity Not on file Sexual Orientation Not on file Last Filed Vital Signs Vital Sign Reading Time Taken Comments Blood Pressure 122/72 11/25/2024 11:44 AM LEISURE STUDIES PROFESSOR Pulse 68 11/25/2024 11:44 AM LEISURE STUDIES PROFESSOR Temperature 36.7 C (98 F) 06/12/2024 11:15 AM CDT Respiratory Rate 18 06/12/2024 11:15 AM CDT Oxygen Saturation 99% 11/25/2024 11:44 AM LEISURE STUDIES PROFESSOR Inhaled Oxygen Concentration - - Weight 93 kg (205 lb) 10/29/2024 2:37 PM LEISURE STUDIES PROFESSOR Height 190.5 cm (6' 3 ) 10/29/2024 2:37 PM LEISURE STUDIES PROFESSOR Body Mass Index 25.62 10/29/2024 2:37 PM LEISURE STUDIES PROFESSOR Plan of Treatment Not on file Procedures Procedure Name Priority Date/Time Associated Diagnosis Comments ECG 12-LEAD Routine 11/25/2024 11:46 AM LEISURE STUDIES PROFESSOR Cardiomyopathy, unspecified type (HCC) URINALYSIS AND REFLEX TO MICROSCOPIC Routine 11/25/2024 Cardiomyopathy, unspecified type (HCC) TRANSTHORACIC ECHO (TTE) COMPLETE W DOPPLER/CF WO CONTRAST Routine 11/03/2024 10:50 AM LEISURE STUDIES PROFESSOR Tachycardia induced cardiomyopathy (HCC) from Last 3 Months Results * ECG 12 lead (11/25/2024 11:46 AM LEISURE STUDIES PROFESSOR) 11/25/2024 11:4 6 AM LEISURE STUDIES PROFESSOR us Minerva John DIRECTOR CHILD ABUSE THERAPY ECG ORDERABLES Edited Re sult - Final * Urinalysis reflex to microscopic (11/25/2024) Urine 11/25/2024 us Minerva John NP LAB URINE ORDERABLES Harper l Result EXTERNAL LAB * TRANSTHORACIC ECHO (TTE) COMPLETE W DOPPLER/CF WO CONTRAST (11/03/2024 10:50 AM LEISURE STUDIES PROFESSOR) LV EF % CONS SCIMAGE Anatomical Region Laterality Modality Ultrasound 11/03/2024 10:2 3 AM LEISURE STUDIES PROFESSOR Narrative 11/03/2024 12:08 PM LEISURE STUDIES PROFESSOR [facility] [address], [place] [address] [address] [facility] [address], [address], [place] [address] P:[phone] P:[phone] Echocardiographic Report Patient Name: PIPER DOUGHERTY F : 1965 Study Date: 11/03/2024 10:23:08 AM Gender: M Tech: Location: [facility] Provider: MINERVA JOHN Height(Cm): 190 BSA: 2.22 [...] FINDINGS: Interpretation Site: Exam was interpreted at [facility]. Left Ventricle: Mild concentric left [...] regurgitation. Electronically Signed By: Dr. Michael Stock [facility] 11/03/2024 12:07:35 PM LEISURE STUDIES PROFESSOR Procedure Note Michael Stock MD - 11/03/2024 [facility] Cardiology [address] [facility] [address], [place] [address] [address] [facility] [address], [address] [address] P:[phone] P:[phone] Echocardiographic Report Patient Name: PIPER DOUGHERTY F : 1965 Study Date: 11/03/2024 10:23:08 AM Gender: M Tech: Location: [facility] Provider: MINERVA JOHN Height(Cm): 190 BSA: 2.22 [...] FINDINGS: Interpretation Site: Exam was interpreted at [facility]. Left Ventricle: Mild concentric left [...] regurgitation. Electronically Signed By: Dr. Michael Stock [facility] 11/03/2024 12:07:35 PM LEISURE STUDIES PROFESSOR Minerva John NP CV ECHO PROCEDURES Final Result from Last 3 Months Insurance [facility] Advance Directives For more information, please contact: [phone] * Full Code (Latest Code Status on File) Date Activated Date Inactivated Comments 06/06/2024 4:55 AM 06/12/2024 5:12 PM Care Teams C Application Developer Relationship Specialty Start Date End Date Buck Strickland MD [address] [place] [address] PCP - General Family Medicine 02/15/22
--- OUTSIDE RECORDS SUMMARY | 2025-01-30 15:30 | XMS_ITS | Clinical Summary ---
Author Organization [facility] Claudine kidd [facility] Address [address] [place] [address] Care Team Providers Care Box Liner Name Role Phone Unavailable Primary Care Provider Unavailabl e Allergies Active Allergy Reactions Criticality Noted Date Comments Penicillins Unknown 06/05/2024 Medications furosemide (LASIX) 20 mg tablet Take 20 mg by mouth daily. 10/24/2024 Active amiodarone (CORDARONE) 200 mg tablet Take 200 mg by mouth daily. Active busPIRone (BUSPAR) 10 mg tablet Take 10 mg by mouth 2 times daily. 10/30/2022 Active metoprolol tartrate 75 mg Tablet Take 75 mg by mouth 2 times daily. 06/12/2024 Active atorvastatin (LIPITOR) 20 mg tablet Take 20 mg by mouth daily at bedtime. 11/26/2024 Active Ubrelvy 100 mg tablet Take 100 mg by mouth one time only. 11/18/2024 Active Entresto 49-51 mg Tablet Take 1 Tablet by mouth 2 times daily. Active Encounters Date Type Department Care Team Description 01/30/2025 2:30 PM CDT Office Visit [facility] Oncology and Hematology - [address] [place] [address] Hollie Guajardo MD 01/30/2025 Orders Only [facility] Oncology and Hematology - [place] [address] [place] [address] Hollie Guajardo MD Amyloidosis, unspecified type (CMS/HCC) (Primary Dx) from Last 3 Months Family History Medical History Relation Name Comments No Known Problems Brother No Known Problems Child 1 No Known Problems Child 2 No Known Problems Father Diabetes Mother Heart Disease Mother No Known Problems Sister Relation Name Status Comments Brother Alive Child 1 Alive Child 2 Alive Father Mother Alive Sister Alive Social History Tobacco Use Types Packs/Day Years Used Date Smoking Tobacco: Never Smokeless Tobacco: Never Alcohol Use Standard Drinks/Week Comments Yes 0 (1 standard drink = 0.6 oz pur e alcohol) ocassional Sex and Gender Information Value Date Recorded Sex Assigned at Not on file Legal Sex Male 8:35 AM FUND ACCOUNTING MANAGER Gender Identity Not on file Sexual Orientation Not on file Last Filed Vital Signs Vital Sign Reading Time Taken Comments Blood Pressure 165/91 01/30/2025 2:46 PM CDT Pulse 71 01/30/2025 2:40 PM CDT Temperature 36.4 C (97.6 F) 01/30/2025 2:40 PM CDT Respiratory Rate 16 01/30/2025 2:40 PM CDT Oxygen Saturation 95% 01/30/2025 2:40 PM CDT Inhaled Oxygen Concentration - - Weight 92.4 kg (203 lb 9.6 oz) 01/30/2025 2:40 P M CDT Height 190.5 cm (6' 3 ) 01/30/2025 2:40 PM CDT Body Mass Index 25.45 01/30/2025 2:40 PM CDT Plan of Treatment Upcoming Encounters Date Type Department Care Team (Late st Contact Info) Description 03/16/2025 4:30 PM CDT Telephone Check Up [facility] Oncology and Hematology [facility] [address] [place] [address] [facility] [address] [place] [address] Gutierrez Hurd MD [address] [facility] [address] [place] [address] Health Maintenance Due Date Last Done Comments HEPATITIS B VACCINES (1 of 3 - + 3-dose series) 03/08 Preventative Visit-Managed Medicaid 1985 COLORECTAL SCREENING 2011 Colorectal Cancer Screening 2011 FIT-DNA Q 3 years 2011 FIT/FOBT Q 1 year 2011 Flex Sig/CT Colonography Q 5 years 2011 ZOSTER VACCINE (1 of 2) 2016 INFLUENZA VACCINE (#1) 2024 DTAP/TDAP/TD VACCINES (2 - Td or Tdap) 06/05/2034 [place] [address]
--- OUTSIDE RECORDS SUMMARY | 2025-01-30 15:30 | XMS_ITS | Encounter Summary ---
Author Organization [facility] Address [address] [place] [address] Care Team Providers Care Claim Benefit Specialist Name Role Phone Unavailable Primary Care Provider Unavailabl e Encounter Details Date Type Department Care Team ([facility] Contact Info) Description 01/30/2025 2:30 PM CDT Office Visit [facility] Oncology and Hematology - [address] [place] [address] Hollie Guajardo MD [address] [place] [address] Social History Tobacco Use Types Packs/Day Years Used Date Smoking Tobacco: Never Smokeless Tobacco: Never Alcohol Use Standard Drinks/Week Comments Yes 0 (1 standard drink = 0.6 oz pur e alcohol) ocassional Sex and Gender Information Value Date Recorded Sex Assigned at Not on file Legal Sex Male 8:35 AM BARBER SHOP MANAGER Gender Identity Not on file Sexual Orientation Not on file documented as of this encounter Last Filed Vital Signs Vital Sign Reading [...] Mass Index 25.45 01/30/2025 2:40 PM CDT documented in this encounter Plan of Treatment Upcoming Encounters Date Type Department Care Team (Late Contact Info) Description 03/16/2025 4:30 PM CDT Telephone Check Up [facility] Oncology and Hematology - [place] [address] [facility] [address] [place] [address] Gutierrez Hurd MD [address] [facility] [address] [place] [address] documented as of this encounter Visit Diagnoses Not on filedocumented in this encounter
--- OUTSIDE RECORDS SUMMARY | 2025-01-30 15:30 | XMS_ITS | Encounter Summary ---
Author Organization [facility] Address [address] [place] [address] Care Team Providers Care Solar Installation Crew Supervisor Name Role Phone Unavailable Primary Care Provider Unavailabl e Encounter Details Date Type Department Care Team ([facility] Contact Info) Description 01/30/2025 Orders Only [facility] Oncology and Hematology - [address] [place] [address] Hollie Guajardo MD [address] [place] [address] Amyloidosis, unspecified type (CMS/HCC) (Primary Dx) Social History Tobacco Use Types Packs/Day Years Used Date Smoking Tobacco: Never Smokeless Tobacco: Never Alcohol Use Standard Drinks/Week Comments Yes 0 (1 standard drink = 0.6 oz pur e alcohol) ocassional Sex and Gender Information Value Date Recorded Sex Assigned at Not on file Legal Sex Male 8:35 AM SENIOR TECHNICAL SUPPORT ANALYST Gender Identity Not on file Sexual Orientation Not on file documented as of this encounter Plan of Treatment Upcoming Encounters Date Type Department Care Team ([facility] [address] [facility] Contact Info) Description 03/16/2025 4:30 PM CDT Telephone Check Up [facility] Oncology and Hematology - [place] [address] [place] [address] Gutierrez Hurd MD [address] [facility] [address] [place] [address] Scheduled Orders Name Type Priority Associated Diagnoses Orde r Schedule CBC WITH DIFFERENTIAL Lab Stat Amyloidosis, unspecified type (CMS/HCC) Expected: 01/30/2025, Expires: 01/30/2026 COMPREHENSIVE METABOLIC PANEL Lab Stat Amyloidosis, unspecified type (CMS/HCC) Expected: 01/30/2025, Expires: 01/30/2026 PROTEIN ELECTROPHORESIS W/REFLEX,SERUM Lab Routine Amyloidosis, unspecified type (CMS/HCC) Expected: 01/30/2025, Expires: 01/30/2026 KAPPA/LAMBDA, FREE LIGHT CHAINS Lab Routine Amyloidosis, unspecified type (CMS/HCC) Expected: 01/30/2025, Expires: 01/30/2026 IRON, TIBC, AND PERCENT SATURATION Lab Routine Amyloidosis, unspecified type (CMS/HCC) Expected: 01/30/2025, Expires: 01/30/2026 VITAMIN B12 AND FOLATE Lab Routine Amyloidosis, unspecified type (CMS/HCC) Expected: 01/30/2025, Expires: 01/30/2026 documented as of this encounter Visit Diagnoses Diagnosis Amyloidosis, unspecified type (CMS/HCC)- Primary documented in this encounter
--- OUTSIDE RECORDS SUMMARY | 2025-01-30 15:30 | XMS_ITS | Clinical Summary ---
Author Organization [facility] [address] Address [address] [place] [address] Care Team Providers Care Media Librarian Name Role Phone Buck Strickland MD Primary [...] 30 tablet 11 06/13/20 24 025 Active Additional Information Patient [...] PCP Dr. Strickland, but sees the Eboni CPA TAX -Left upper lobe nodule measuring 9 mm [...] head CT CM Intake Health Insurance Coverage: [facility] Medicaid Prescription Coverage: Yes Pharmacy: [facility] [address] [place] [address] [address] [facility] [id number] Primary Care Provider: Buck Strickland MD CM Intake: Encounters Date Type Department Care Team Description 11/28/2024 Results Follow-Up [facility] Cardiology [address] [facility] [address] [place] [phone] Minerva John NP 11/25/2024 11:15 AM GRIDDLE ATTENDANT Procedure visit [facility] Cardiology [address] [place] [address] [place] [phone] Cardiomyopathy, unspecified type (HCC) 11/25/2024 Orders Only [facility] Cardiology [address] [place] [address] [place] [phone] Minerva John NP 11/03/2024 10:15 AM GRIDDLE ATTENDANT Ancillary Procedure [facility] Cardiology [address] [place] [address] [address] [place] [phone] Tachycardia induced cardiomyopathy (HCC) 11/03/2024 Telephone [facility] Cardiology [address] [place] [address] [address] [place] [phone] Minerva John NP from Last 3 Months Immunizations Immunization Administration Dates Next Due Tdap 06/05/2024 Medical History Medical History Date Comments Hypertension Atrial fibrillation (HCC) CHF (congestive heart failure) (HCC) Family History Medical History Relation Name [...] on file Legal Sex Male 8:21 PM GRIDDLE ATTENDANT Gender Identity Not on file Sexual Orientation Not on file Obstetrics History Last Filed Vital Signs Vital Sign Reading Time Taken Comments Blood Pressure 122/72 11/25/2024 11:44 AM GRIDDLE ATTENDANT Pulse 68 11/25/2024 11:44 AM GRIDDLE ATTENDANT Temperature 36.7 C (98 F) 06/12/2024 11:15 AM CDT Respiratory Rate 18 06/12/2024 11:15 AM CDT Oxygen Saturation 99% 11/25/2024 11:44 AM GRIDDLE ATTENDANT Inhaled Oxygen Concentration - - Weight 93 kg (205 lb) 10/29/2024 2:37 PM GRIDDLE ATTENDANT Height 190.5 cm (6' 3 ) 10/29/2024 2:37 PM GRIDDLE ATTENDANT Body Mass Index 25.62 10/29/2024 2:37 PM GRIDDLE ATTENDANT Plan of Treatment Health Maintenance Due Date Last Done Comments Colon Cancer Screening-Colonoscopy 1966 Depression Screening 1966 Hepatitis C Screening 1966 Prostate Cancer Screening-PSA 1966 Hepatitis B Screening 1984 Regular Well Visit/Exam 18-64 1984 Pneumococcal vaccine <65 (1 of 2 - PCV) 1985 Zoster Vaccine (1 of 2) 2016 Covid-19 Vaccine (2 - season) 2024 Influenza Vaccine (Season Ended) 2025 DTaP/Tdap/Td Vaccine (2 - Td or Tdap) 06/05/2034 Procedures Procedure Name Priority Date/Time Associated Diagnosis Comments ECG 12-LEAD Routine 11/25/2024 11:46 AM GRIDDLE ATTENDANT Cardiomyopathy, unspecified type (HCC) URINALYSIS AND REFLEX TO MICROSCOPIC Routine 11/25/2024 Cardiomyopathy, unspecified type (HCC) TRANSTHORACIC ECHO (TTE) COMPLETE W DOPPLER/CF WO CONTRAST Routine 11/03/2024 10:50 AM GRIDDLE ATTENDANT Tachycardia induced cardiomyopathy (HCC) from Last 3 Months Results * ECG 12 lead (11/25/2024 11:46 AM GRIDDLE ATTENDANT) 11/25/2024 11:4 6 AM GRIDDLE ATTENDANT us Minerva John CPA TAX ECG ORDERABLES Edited Re sult - Final * Urinalysis reflex to microscopic (11/25/2024) Urine 11/25/2024 us Minerva John CPA TAX LAB URINE ORDERABLES [facility] Result EXTERNAL LAB * TRANSTHORACIC ECHO (TTE) COMPLETE W DOPPLER/CF WO CONTRAST (11/03/2024 10:50 AM GRIDDLE ATTENDANT) LV EF % CONS SCIMAGE Anatomical Region Laterality Modality Ultrasound 11/03/2024 10:2 3 AM GRIDDLE ATTENDANT Narrative 11/03/2024 12:08 PM GRIDDLE ATTENDANT [facility] Cardiology [address] [facility] [address] [id number] [address] [facility] [address], [place] [address] P:[phone] P:[phone] Echocardiographic Report Patient Name: PIPER DOUGHERTY F : 1965 Study Date: 11/03/2024 10:23:08 AM Gender: M Tech: Location: [place] Ref Provider: MINERVA JOHN Height(Cm): 190 BSA: [...] FINDINGS: Interpretation Site: Exam was interpreted at [facility]. Left Ventricle: Mild concentric left ventricular hypertrophy. [...] regurgitation. Electronically Signed By: Dr. Michael Stock [facility] 11/03/2024 12:07:35 PM GRIDDLE ATTENDANT Procedure Note Michael Stock MD - 11/03/2024 [facility] Cardiology [address] [facility] [address] [address] [address] [facility] [address], [place] [address] P:[phone] P:[phone] Echocardiographic Report Patient Name: PIPER DOUGHERTY F : 1965 Study Date: 11/03/2024 10:23:08 AM Gender: M Tech: Location: [facility] Provider: MINERVA JOHN Height(Cm): 190 BSA: [...] FINDINGS: Interpretation Site: Exam was interpreted at [facility]. Left Ventricle: Mild concentric left ventricular hypertrophy. [...] regurgitation. Electronically Signed By: Dr. Michael Stock [facility] 11/03/2024 12:07:35 PM GRIDDLE ATTENDANT Minerva John CPA TAX CV ECHO PROCEDURES Final Result from Last 3 Months Insurance [facility] Advance Directives For more information, please contact: [phone] * Full Code (Latest Code Status on File) Date Activated Date Inactivated Comments 06/06/2024 4:55 AM 06/12/2024 5:12 PM Care Teams Media Librarian Relationship Specialty Start Date End Date Buck Strickland MD [address] [place] [address] PCP - General Family Medicine 02/15/22
--- OUTSIDE RECORDS SUMMARY | 2025-01-30 15:30 | XMS_ITS | Clinical Summary ---
Author Organization [facility] Care Team Providers Care Welder Machine Operator Name Role Phone Unavailable Primary Care Provider Unavailabl e Social History Tobacco Use Types Packs/Day Years Used Date Smoking Tobacco: Never Assessed Sex and Gender Information Value Date Recorded Sex Assigned at Not on file Legal Sex Male 2:41 PM AUTOMATIC MAINTAINER Gender Identity Not on file Sexual Orientation [...]
--- OUTSIDE RECORDS SUMMARY | 2025-01-30 15:30 | XMS_ITS | CONTINUITY OF CARE DOCUMENT ---
Author Name papito cobos Address Unknown Organization [facility] Address [address] [facility] [address] [place] [address] Phone [phone] Care Team Providers Care Supervisory Geographer Name Role Phone Albert Vincent MD Unavailable [phone] Albert Vincent MD Unavailable [phone] INSURANCE PROVIDERS Payer name Policy type / Coverage type [place] [employer] party ID [facility] DIS[facility] Commercial insuranc e company [id number] [place] MEDICA[place] (2) Medicaid [id number]
[2025-01-30 15:38] LABS: Basophils Absolute Auto 0.1 K/mm3 (0.0-0.1); Basophils Percent Auto 0.4 % (0.2-1.2); Eosinophils Absolute Auto 0.1 K/mm3 (0-0.3); Eosinophils Percent Auto 0.4 % (0-4.4); Hematocrit 41.8 % (42.0-52.0); Hemoglobin 13.1 g/dL (14.0-18.0); Immature Granulocyte Absolute 0.11 K/mm3 (0.00-0.031); Immature Granulocyte Percent A 0.7 % (0-0.5); Lymphocytes Absolute Auto 1.57 K/mm3 (0.9-3.2); Lymphocytes Percent Auto 9.5 % (18.3-44.2); Mean Corpuscular HGB Conc 31.3 g/dl (32-36); Mean Corpuscular Hemoglobin 27.4 pg (26-34); Mean Corpuscular Volume 87.4 fl (80-100); Mean Platelet Volume 10.1 fl (7.4-10.4); Monocytes Absolute Auto 1.3 K/mm3 (0.1-0.6); Monocytes Percent Auto 8.2 % (2.6-8.5); Neutrophils Absolute Auto 13.3 K/mm3 (1.3-6.7); Neutrophils Percent Auto 80.8 % (45.5-73.1); Platelet Count Result 410 k/mm3 (150-375); Red Blood Count 4.78 M/mm3 (4.6-6.20); Red Cell Distribution Width 18.6 % (11.5-14.5); White Blood Count 16.4 K/mm3 (4.5-10.0)
[2025-01-30 16:36] LABS: Iron 43 ug/dL (49-181)
[2025-01-30 16:37] LABS: Alanine Aminotransferase 12 U/L (6-50); Albumin Level 4.3 g/dL (3.5-5.1); Alkaline Phosphatase 74 U/L (38-126); Anion Gap 11 mmol/L (4-12); Aspartate Amino Transferase 26 U/L (17-59); Bilirubin,Total 1.1 mg/dL (0.2-1.3); Blood Urea Nitrogen 24 mg/dL (9-20); Carbon Dioxide 24 mmol/L (22-30); Chloride 102 mmol/L (98-107); Estimated Glomerular Filt Rate 57; Glucose 112 mg/dL (65-110); Potassium 4.4 mmol/L (3.4-5.0); Sodium 137 mmol/L (137-145)
[2025-01-30 16:46] LABS: Percent Iron Saturation 12 % (20-50)
[2025-01-30 17:44] LABS: Folic Acid 4.3 ng/mL (2.76->20)
[2025-02-02 15:38] LABS: Lambda Light Chain 35.5 mg/L (5.7-26.3)
[2025-02-03 14:58] LABS: Protein, Total 7.6 g/dL (6.1-8.1)
[2025-02-04 10:24] LABS: Albumin 3.8 g/dL (3.8-4.8); Alpha 1 Globulin 0.4 g/dL (0.2-0.3); Alpha 2 Globulin 0.8 g/dL (0.5-0.9); Beta 1 Globulin 0.5 g/dL (0.4-0.6); Gamma Globulin 1.5 g/dL (0.8-1.7)
== END 2025-01-30 15:28 | disposition home or self-care (01) ==
LOC: ANHLAB 15:28
PROVIDERS: PCP Family Medicine Adolescent Medicine; Visit Provider Internal Medicine Hematology & Oncology
DX: E85.9 Amyloidosis, unspecified (principal)
CPT/HCPCS: 36415; 80053; 82607; 82746; 83540; 83550; 83883; 84155; 84165; 85025